=== PATIENT | male | born 1950 | race Caucasian/White ===

== ENCOUNTER → 2017-09-09 09:33 | Outpatient (CLI) | payer OTHER, SELFPAY ==
--- NOTE | 2017-09-09 | DI.MRI.S_ITS ---
PROCEDURE: MR LUMBAR SPINE WO CON INDICATIONS: LOW BACK PAIN TECHNIQUE: Noncontrast sagittal T1 spin echo and T2 fast echo, sagittal STIR, axial T1 and T2 fast spin echo through the lumbar spine. In cases with scoliosis, additional coronal T2 fast spin echo may be performed. COMPARISON: [facility], CT, KUB - CT (PNL), 07/28/2014, 14:05. [facility], CR, KUB XRAY (1 VIEW ABDOMEN), 07/02/2014, 9:44. [facility], CR, KUB, 04/23/2014, 7:11. FINDINGS: Image quality: Excellent. Alignment and Curvature: 5 lumbar type vertebral bodies are present by plain film. There is mild grade 1 retrolisthesis of L1 on L2, L2 on L3, and L4 on L5. Mild grade 1 anterolisthesis of L5 on S1 is present. Bone Marrow: Marrow is of normal overall signal. No acute vertebral body compression fractures. Bilateral L5-S1 pars interarticularis defects are present. There is moderate reactive signal within the endplates adjacent to the L1-L2, L2-L3, L4-L5, and L5-S1 intervertebral discs mild reactive signal within the endplates adjacent to the T12-L1 and L3-L4 intervertebral discs. Spinal Cord: Conus medullaris terminates at the mid L2 level. Visualized cord demonstrates normal signal and size. Paraspinous Soft Tissues: No paravertebral masses. Incompletely visualized right hepatic lobe cyst is present. Parapelvic renal cysts are present bilaterally, as before. L1-L2: Disc desiccation and diffuse disc bulge/osteophyte. Bilateral facet hypertrophy. Mild canal stenosis. Mild foraminal stenosis bilaterally. L2-L3: Disc height loss and desiccation, as well as diffuse disc bulge/osteophyte with small superimposed broad-based left posterolateral protrusion/osteophyte. Bilateral facet hypertrophy. Mild canal stenosis. Mild left greater than right foraminal stenosis. L3-L4: Disc desiccation. Small superimposed left lateral protrusion. Bilateral facet and ligamentum hypertrophy. Mild canal stenosis. Moderate left and mild right foraminal stenosis. L4-L5: Disc desiccation and diffuse disc bulge/osteophyte with small superimposed broad based right far lateral protrusion/osteophyte. Bilateral facet hypertrophy. Mild canal stenosis. Moderate right and mild left foraminal stenosis. L5-S1: Disc height loss and desiccation, as well as diffuse disc bulge. Bilateral facet hypertrophy. Grade I isthmic spondylolisthesis. No significant canal stenosis. Severe bilateral foraminal stenosis with flattening deformity of the bilateral L5 nerve roots within the neural foramina. IMPRESSION: 1. Multilevel degenerative disc and facet disease, as well ligamentum flavum hypertrophy. 2. Grade I isthmic spondylolisthesis at L5-S1. 3. Severe bilateral L5-S1 foraminal stenosis, with associated flattening deformity of the L5 nerve roots in the neural foramina. Recommend correlation with clinical symptoms to ascertain relevance of this finding. 4. Mild canal and mild to moderate foraminal stenosis at the remaining levels. Dictated by: Rizwana James M.D. on 09/09/2017 at 11:36 Approved by: Rizwana James M.D. on 09/09/2017 at 12:00
== END ==
PROVIDERS: PCP Family Medicine; Visit Provider Family Medicine
DX: M51.36 Other intervertebral disc degeneration, lumbar region (principal); M47.816 Spondylosis without myelopathy or radiculopathy, lumbar region; M43.17 Spondylolisthesis, lumbosacral region; M99.73 Connective tissue and disc stenosis of intervertebral foramina of lumbar region; M48.061 Spinal stenosis, lumbar region without neurogenic claudication
CPT/HCPCS: 72148

== ENCOUNTER → 2018-08-26 07:33 | Outpatient (CLI) | payer OTHER, SELFPAY ==
[2018-08-26 09:07] LABS: Add Manual Diff / Slide Review NO; Basophils Absolute Auto 0 /uL (0-100); Basophils Percent Auto 0.8 % (0-2); Eosinophils Absolute Auto 200 /uL (0-450); Eosinophils Percent Auto 4.7 % (2-4); Hematocrit 46.1 % (41-53); Hemoglobin 15.5 g/dL (13.5-17.5); Lymphocytes Absolute Auto 700 /uL (1100-4500); Mean Corpuscular HGB Conc 33.5 % (30-36); Mean Corpuscular Hemoglobin 31.6 PG (26-34); Mean Corpuscular Volume 94.3 fL (80-100); Monocytes Absolute Auto 500 /uL (0-900); Monocytes Percent Auto 12.7 % (3-14); Neutrophils Absolute Auto 2700 /uL (1500-7000); Neutrophils Percent Auto 64.8 % (50-75); Platelet Count 184 X10^3/uL (150-400); Red Blood Cell Count 4.89 X10^6/uL (4.5-5.9); Red Cell Distribution Width 13.7 % (11.6-14.8); White Blood Cell Count 4.1 X10^3/uL (4.5-11.0)
[2018-08-26 09:27] LABS: Alanine Aminotransferase 27 IU/L (21-72); Albumin 4.4 g/dL (3.5-5.0); Albumin Globulin Ratio 1.8 (1.0-2.8); Alkaline Phosphatase 58 U/L (38-126); Aspartate Aminotransferase 26 IU/L (17-59); Bilirubin Total 0.4 mg/dL (0.2-1.3); Blood Urea Nitrogen 23 mg/dL (9-20); Calcium 9.4 mg/dL (8.4-10.2); Carbon Dioxide 27 mmol/L (22-32); Chloride 107 mmol/L (98-107); Cholesterol 205 mg/dL (140-199); Estimated Glomerular Filt Rate > 60.0 mL/min (>60); Globulin 2.5 g/dL (1.7-4.1); Glucose 96 mg/dL (80-110); HDL Cholesterol 43 mg/dL (40-60); HEMOLYSIS < 15 (0-50); LDL Cholesterol Calculated 136 mg/dL (<100); Magnesium 2.1 mg/dL (1.6-2.3); Potassium 4.9 mmol/L (3.4-5.1); Sodium 142 mmol/L (137-145); Total Protein 6.9 g/dL (6.3-8.2); Triglycerides 132 mg/dL (35-150)
[2018-08-26 09:59] LABS: Prostate Specific Antigen Scrn 1.79 ng/mL (0.1-4.0)
[2018-08-26 10:24] LABS: Thyroid Stimulating Hormone 3.69 uIU/mL (0.47-4.68)
[2018-08-26 11:23] LABS: Creatinine Urine Random 234.1 mg/dL
[2018-08-26 11:28] LABS: Microalbumi Creatinin Ratio Ur 6.8 ug/mg CR (<30); Microalbumin Urine Random 1.6 mg/dL (0-1.6)
== END ==
PROVIDERS: Family Provider Specialist; PCP Family Medicine; Visit Provider Family Medicine
DX: I48.0 Paroxysmal atrial fibrillation (principal); C91.40 Hairy cell leukemia not having achieved remission; D64.9 Anemia, unspecified; I10 Essential (primary) hypertension; N28.9 Disorder of kidney and ureter, unspecified; R89.9 Unspecified abnormal finding in specimens from other organs, systems and tissues; Z12.5 Encounter for screening for malignant neoplasm of prostate; Z13.1 Encounter for screening for diabetes mellitus; Z13.220 Encounter for screening for lipoid disorders
CPT/HCPCS: 36415; 80053; 80061; 82043; 82570; 83735; 84443; 85025; G0103

== ENCOUNTER → 2019-01-02 08:28 | Outpatient (CLI) | payer OTHER, SELFPAY ==
[2019-01-02 10:28] LABS: Alanine Aminotransferase 26 IU/L (21-72); Albumin 4.4 g/dL (3.5-5.0); Albumin Globulin Ratio 1.8 (1.0-2.8); Alkaline Phosphatase 51 U/L (38-126); Aspartate Aminotransferase 30 IU/L (17-59); BUN Creatinine Ratio 27.5 (6-22); Bilirubin Total 0.6 mg/dL (0.2-1.3); Blood Urea Nitrogen 22 mg/dL (9-20); Calcium 9.4 mg/dL (8.4-10.2); Carbon Dioxide 27 mmol/L (22-32); Chloride 108 mmol/L (98-107); Estimated Glomerular Filt Rate > 60.0 mL/min (>60); Globulin 2.4 g/dL (1.7-4.1); Glucose 93 mg/dL (80-110); HEMOLYSIS < 15 (0-50); Potassium 4.4 mmol/L (3.4-5.1); Sodium 143 mmol/L (137-145); Total Protein 6.8 g/dL (6.3-8.2)
[2019-01-05 10:13] LABS: Lipoprofile NMR SEE SEPERATE REPORT
== END ==
PROVIDERS: PCP Family Medicine; Visit Provider Specialist
DX: E78.00 Pure hypercholesterolemia, unspecified (principal); I48.0 Paroxysmal atrial fibrillation
CPT/HCPCS: 36415; 80053; 83704; 83735

== ENCOUNTER → 2019-09-29 08:11 | Outpatient (CLI) | payer OTHER, SELFPAY ==
[2019-09-29 10:22] LABS: Alanine Aminotransferase 22 IU/L (<50); Albumin 4.3 g/dL (3.5-5.0); Albumin Globulin Ratio 1.8 (1.0-2.8); Alkaline Phosphatase 51 U/L (38-126); Aspartate Aminotransferase 25 IU/L (17-59); BUN Creatinine Ratio 21.6 (6-22); Bilirubin Total 0.6 mg/dL (0.2-1.3); Blood Urea Nitrogen 19 mg/dL (9-20); Calcium 9.6 mg/dL (8.4-10.2); Carbon Dioxide 23 mmol/L (22-32); Chloride 110 mmol/L (98-107); Estimated Glomerular Filt Rate > 60.0 mL/min (>60); Globulin 2.4 g/dL (1.7-4.1); Glucose 97 mg/dL (80-110); HEMOLYSIS < 15 (0-50); Magnesium 2.1 mg/dL (1.6-2.3); Potassium 4.8 mmol/L (3.4-5.1); Sodium 141 mmol/L (137-145); Total Protein 6.7 g/dL (6.3-8.2)
[2019-10-01 08:17] LABS: Cholesterol, Total 228 mg/dL (100-199); HDL-Cholesterol 44 mg/dL (>39); HDL-Particle (Total) 32.5 umol/L (>=30.5); Historical Reading Comment: (.); LDL Particle 2040 nmol/L (<1000); LDL Size 20.4 nm (>20.5); LDL-Cholsterol 148 mg/dL (0-99); LP-IR Score 70 (<=45); Small LDL- Particle 1095 nmol/L (<=527); Triglycerides 181 mg/dL (0-149)
== END ==
PROVIDERS: PCP Family Medicine; Referring Provider Specialist; Visit Provider Specialist
DX: E78.00 Pure hypercholesterolemia, unspecified (principal); I48.0 Paroxysmal atrial fibrillation
CPT/HCPCS: 36415; 80053; 80061; 83704; 83735

== ENCOUNTER → 2019-11-06 11:29 | Outpatient (CLI) | payer OTHER, SELFPAY ==
[2019-11-06 14:48] LABS: Prostate Specific Antigen 2.16 ng/mL (0.10-4.00)
== END ==
PROVIDERS: PCP Family Medicine; Referring Provider Family Medicine; Visit Provider Family Medicine
DX: N40.0 Benign prostatic hyperplasia without lower urinary tract symptoms (principal)
CPT/HCPCS: 36415; 84153

== ENCOUNTER → 2020-03-03 07:22 | Outpatient (CLI) | payer OTHER, SELFPAY ==
[2020-03-03 08:55] LABS: Cholesterol 132 mg/dL (140-199); HDL Cholesterol 51 mg/dL (40-60); LDL Cholesterol Calculated 63 mg/dL (<100); Triglycerides 89 mg/dL (35-150)
== END ==
PROVIDERS: PCP Family Medicine; Referring Provider Family Medicine; Visit Provider Family Medicine
DX: E78.5 Hyperlipidemia, unspecified (principal)
CPT/HCPCS: 36415; 80061

== ENCOUNTER → 2020-03-11 14:49 | Outpatient (CLI) | payer OTHER, SELFPAY ==
--- NOTE | 2020-03-11 | DI.ECHO.S_ITS ---
[facility] +---------+ : : [address] : : : : [place] : : : : [id number] : : : : Phone: [phone] Echocardiogram Report + + :Name: GERONIMO SOLO Study Date: 03/11/2020 Height: 70 in : :[facility] Weight: 186 lb : : Gender: Male BSA: 2.0 m2 : :: 1950 Age: 69 yrs BP: 145/63 mmHg: :Reason For Study: Aortic enlargement : : Performed By: Evangelina Lo : :Referring: MANFRED MCKEON : + + Interpretation Summary Left ventricular systolic function remains normal with an estimated ejection fraction of 65 to 70% without any focal wall motion abnormality. Wall thickness is at the upper limits of normal with probable normal diastolic function and normal filling pressures. Left ventricular size is normal at 102 mL. The right ventricle is borderline enlarged with normal systolic function and appears unchanged from the previous study. Right ventricular systolic pressure cannot be estimated but CVP is likely around 3 mmHg. Both atria are normal in size. The left atrium has mildly decreased in size. The aortic valve is mildly calcified but opens well with mild aortic regurgitation that appears unchanged from the previous study. There is no other significant valvular abnormality. The aortic root and ascending aorta are both moderately enlarged, measuring 4.3 and 4.2 cm, respectively, compared to 4.4 and 4.2 cm on the previous exam. The patient was in sinus bradycardia at 50 to 55 bpm which is slightly faster compared to the previous exam. Procedure: A two-dimensional transthoracic echocardiogram with color flow and Doppler was performed. The study quality was technically adequate. Comparison is made with the echocardiogram of 07/03/2018. The patient was in sinus bradycardia with heart rates between 50-55 bpm during the exam. This is slightly faster compared to the previous study. Left Ventricle: The left ventricle appears normal in size, wall thickness, and systolic function without any focal wall motion abnormalities. The estimated left ventricular end diastolic volume is 102 ml. The ejection fraction is estimated to be 65-70%. Diastolic parameters suggest probable normal left ventricular diastolic function and normal filling pressures. There has been no significant change since the previous study. Right Ventricle: The right ventricle is borderline dilated. The right ventricular systolic function is normal. This is unchanged compared to the previous study. Atria: Both atria are normal in size. The left atrium has mildly decreased in size since the prior echo exam. There is no Doppler evidence for an interatrial shunt. Mitral Valve: There is mild mitral annular calcification. There is trace mitral regurgitation. This is less prominent compared to the previous study. Aortic Valve: The aortic valve is trileaflet. The aortic valve is mildly calcified. The aortic valve opens well. There is mild aortic regurgitation. This is unchanged compared to the previous study. Tricuspid Valve: The tricuspid valve is normal in structure and function. There is trace tricuspid regurgitation. Pulmonary artery pressures cannot be estimated because of the lack of a measurable TR jet velocity but the IVC suggests a CVP of around 3 mmHg. Pulmonic Valve: The pulmonic valve leaflets are thin and pliable; valve motion is normal. There is a trace or physiologic amount of pulmonic regurgitation. There is no other significant valvular heart disease. Great Vessels: The aortic root is moderately dilated. The ascending aorta is moderately enlarged. This is unchanged compared to the previous study. The pulmonary artery is normal size. The IVC is of normal diameter and collapses greater than 50% with a sniff. This suggests a low right atrial pressure of 3 mm Hg. Pericardium/ Pleura There is no pericardial effusion. MMode/2D Measurements & Calculations LVIDd: 5.2 cm LVOT diam: 2.5 cm LVIDs: 3.0 cm Ao root diam: 4.3 cm FS: 41.7 % asc Aorta Diam: 4.2 cm IVSd: 0.90 cm LVPWd: 0.86 cm LV verduzco. diameter/BSA (cm/m^2): 2.6 LV sys. diameter/BSA (cm/m^2): 1.5 LA A2 area: 25.6 cm2 RA long axis: 6.6 cm LA A4 area: 17.0 cm2 RA area: 19.9 cm2 LA length (vol): 5.7 cm RA vol: 50.7 ml LA vol: 65.2 ml RA : 25.0 ml/m2 LA vol index: 32.2 ml/m2 IVC diam: 1.2 cm RVD1 (basal): 4.7 cm TAPSE: 2.1 cm Doppler Measurements & Calculations Ao V2 max: 142.4 cm/sec LVOT Max Alvin: 151.6 cm/sec Ao V2 mean: 92.4 cm/sec LV V1 max P.2 mmHg Ao max P.1 mmHg LV V1 VTI: 29.7 cm Ao mean P.9 mmHg AARON(I,D): 5.6 cm2 Ao V2 VTI: 27.3 cm AARON(V,D): 5.4 cm2 sev ratio: 1.1 AARON indexed to BSA (cm^2/m^2): 2.7 MV E max alvin: 53.5 cm/sec TR max alvin: 223.9 cm/sec MV A max alvin: 58.1 cm/sec TR max P.1 mmHg MV E/A: 0.92 PA V2 max: 94.1 cm/sec Med Peak E' Alvin: 6.6 cm/sec PA V2 mean: 67.5 cm/sec E/E' med: 8.1 PA mean P.0 mmHg Lat Peak E' Alvin: 10.8 cm/sec PA Accel Time: 0.05 sec E/E' lat: 4.9 E/e' average: 6.5 MV dec time: 0.28 sec SV(LVOT): 151.6 ml AV P1/2t-pr_phl: 863.2 msec Reading Physician:06:16 PM
== END ==
PROVIDERS: PCP Family Medicine; Referring Provider Specialist; Visit Provider Specialist
DX: I35.1 Nonrheumatic aortic (valve) insufficiency (principal); I77.89 Other specified disorders of arteries and arterioles; R00.1 Bradycardia, unspecified
CPT/HCPCS: 93306

== ENCOUNTER → 2020-08-04 14:51 | Outpatient (CLI) | payer OTHER, SELFPAY ==
--- NOTE | 2020-08-04 14:52 | DI.RAD.S_ITS ---
PROCEDURE: XR HIP W PEL IF DONE LT 2V INDICATIONS: left hip pain TECHNIQUE: AP pelvis with lateral view(s) of the left hip(s). COMPARISON: None. FINDINGS: Moderate left acetabular joint space narrowing and small marginal osteophyte present. Minimal subchondral sclerosis without remodeling of the femoral head. Mild right-sided acetabular joint space narrowing noted with overlying inguinal vascular clips. Degenerative disc disease noted in the lower lumbar spine. Normal bone mineralization. No evidence of fracture. IMPRESSION: 1. Moderate left hip osteoarthritis with small marginal osteophyte and no remodeling of the femoral head Dictated by: Doc Phillip M.D. on 08/04/2020 at 16:04 Approved by: Doc Phillip M.D. on 08/04/2020 at 16:09
== END ==
PROVIDERS: PCP Family Medicine; Referring Provider Family Medicine; Visit Provider Family Medicine
DX: M54.5 Low back pain (principal); M16.12 Unilateral primary osteoarthritis, left hip; M25.552 Pain in left hip; G89.29 Other chronic pain
CPT/HCPCS: 73502

== ENCOUNTER 2020-08-07 10:10 | Emergency (ER) | payer OTHER, SELFPAY ==
[2020-08-07] VITALS (13 sets, daily range): BP systolic 97–116; BP diastolic 55–76; PULSE 58–78; RESP 16–21; TEMP 36.6; O2SAT 94–97; BMI 25.8
--- NOTE | 2020-08-07 10:25 | DI.RAD.S_ITS ---
PROCEDURE: XR CHEST 1V INDICATIONS: chest pain TECHNIQUE: One view of the chest was acquired. COMPARISON: [facility], CR, XR PICC LINE PLACE BY NURSE, 09/17/2016, 12:50. [facility], DELL, CHEST 2 VIEW, 09/06/2014, 9:37. FINDINGS: Surgical changes and devices: Overlying EKG wires. Lungs and pleura: Lungs are clear. No pleural effusions or pneumothorax. Mediastinum: Mediastinal contours appear normal. Heart size is normal. Bones and chest wall: No suspicious bony lesions. Overlying soft tissues appear unremarkable. IMPRESSION: No evidence of an acute cardiopulmonary abnormality. Dictated by: on 08/07/2020 at 9:51 Approved by: on 08/07/2020 at 9:52
--- NOTE | 2020-08-07 10:43 | ED_ITS ---
HPI - Arrhythmia/Palpitations General Chief Complaint: Arrhythmia/Palpitations Stated Complaint: afib event Time Seen by Provider: 08/07/20 10:42 Source: patient and family () Mode of arrival: Ambulatory Limitations: no limitations History of Present Illness HPI narrative: This is a pleasant 69-year-old male comes emergency department complaint of atrial fibrillation. Patient states he has been in an out for at least the last several days. He does not always have symptoms but he noticed that his last doctor's appointment on his chart that his heart rate was 116 which is atypical. He has been checking intermittently and noted that his heart rate has been intermittently elevated into the 110 range. Patient states he had some dizziness yesterday, he felt more exhausted after pretty extensive yd work yesterday. He has felt a little bit more short of breath lately although he does not have any shortness of breath today. He has felt some generalized fatigue. He denies any chest pain or pressure. He has recently had shingles of his left upper extremity and developed a rash that ultimately resolved and he continues to have some post herpetic neuralgia. Patient was on nortriptyline for this which he found was also very helpful for his back pain. Patient is not currently anticoagulated he was on Eliquis but stopped it secondary to increased tinnitus as well as not being able to take ibuprofen for his back. He states he would be willing to try this again as the nortriptyline really helped his back pain and he was not really requiring any ibuprofen. He does take atenolol daily, losartan, a statin, Rapaflo as well as an 81 mg aspirin daily. He has had his morning aspirin. He has had multiple orthopedic surgeries in the past, no cardiac stents and cardiac ablations and multiple lithotripsies. He has been treated for hairy cell leukemia. Patient denies tobacco, no alcohol. He does use THC drops occasionally but no other regular illicit drugs. He comes in today after discussing with Dr. Dumont on the phone about his symptoms. He is currently asymptomatic. Related Data Home Medications Medication Instructions Recorded Confirmed Glucosamine Sulfate (GLUCOSAMINE) 500 mg PO Q DAY #0 01/29/11 08/04/20 Fish Oil (#FISH OIL) 1 iu PO Q DAY #0 01/28/12 08/04/20 MULTIVITAMIN (#MULTIPLE VITAMINS) 1 cap PO Q DAY #0 01/28/12 08/04/20 Folic Acid 1 tab PO DAILY 07/01/19 08/04/20 aspirin 81 mg tablet,delayed 81 mg PO DAILY 07/01/19 08/04/20 release atenolol 50 mg tablet 50 mg PO DAILY 06/17/20 08/04/20 Previous Rx's Medication Instructions Recorded silodosin 8 mg capsule 8 mg PO Q DAY #90 cap 08/31/19 losartan 50 mg tablet 50 mg PO DAILY #90 tab 11/05/19 atorvastatin 10 mg tablet 10 mg PO DAILY #90 tab 01/30/20 nortriptyline 25 mg capsule 25 mg PO BEDTIME #60 cap 08/04/20 apixaban [Eliquis] 5 mg PO BID #60 tab 08/07/20 furosemide [Lasix] 20 mg PO DAILY #3 tab 08/07/20 Allergies Allergy/AdvReac Type Severity Reaction Status Date / Time Sulfa (Sulfonamide Allergy Intermediate HIVES, Verified 08/04/20 14:34 Antibiotics) FEVER ciprofloxacin Allergy Mild RASH Verified 08/04/20 14:34 floxacillin Allergy Mild RASH Verified 08/04/20 14:34 allopurinol [ALLOPURINOL] Allergy Unknown Verified 08/04/20 14:34 Review of Systems Review of Systems ROS Unobtainable: All systems reviewed & are unremarkable except as noted in HPI and below Patient History Medical History Atrial fibrillation (1993) Chicken pox (~1954) Chronic back pain (1964) Diverticular disease (~2009) Hearing loss (~1976) Hypertension (~1985) Kidney stones (2006) Left hip pain Leukemia (~1991) Measles (~1954) Mumps (~1954) Plantar warts Recurrent sinusitis (~2008) Shoulder pain (2011) Tinnitus (~1979) Vertigo (2010) Surgical History Anesthesia History of colonoscopy (04/04/07) History of lithotripsy (2006) History of lithotripsy (2013) History of lithotripsy (2014) Status post hernia repair (1959) Status post hernia repair (2006) Status post knee surgery (1969) Status post knee surgery (1979) Status post wrist surgery (~1979) Family History Brother Age: 69 Leukemia Father Alzheimer's disease Mother Breast cancer Cancer Sister Age: 75 Ovarian cancer Cancer Sister No problems noted. Social History Smoking Status: Former smoker Smoking Status: Former smoker Exam Narrative Exam Narrative: GENERAL: Alert and oriented x three, well-nourished male in mild distress. HEENT: Head normocephalic, atraumatic, EOMI, pupils reactive, face symmetric, moist mucous membranes NECK: Supple, full range of motion CARDIOVASCULAR: Regular rate and rhythm without murmurs, rubs or gallops. No JVD. No lower extremity edema. RESPIRATORY: Breath sounds equal bilaterally, no wheezes rales or rhonchi. ABDOMEN: Soft, nontender. Normoactive bowel sounds all 4 quadrants. No guarding or rebound, rigidity, no mass : No CVA tenderness EXTREMITIES: Normal range of motion. Neurovascularly intact NEUROLOGICAL: Cranial nerves II through XII grossly intact. Moving all extremities SKIN: Warm, dry, no petechiae, no rashes or lesions. Initial Vital Signs Initial Vital Signs: Vital Signs Blood Pressure 114/76 08/07/20 10:14 Course Orders Ordered: ED Orders 08/07/20 10:25 XR chest 1V Stat EKG-12 Lead Stat 08/07/20 10:33 Complete Blood Count AUTO DIFF Stat Comprehensive Metabolic Panel Stat Lipase Stat Magnesium Stat NT-proBNP (BNP-Adult 18+) Stat Partial Thromboplastin Time Stat Prothrombin Time INR Stat Troponin & CK Cardiac Panel Stat Discontinued Medications Apixaban (Apixaban 5 Mg Tablet) 5 mg PO NOW ONE Stop: 08/07/20 12:37 Last Admin: 08/07/20 12:50 Dose: 5 mg Documented by: GILDARDO Furosemide (Furosemide 40 Mg/4 Ml Vial) 20 mg IV NOW ONE Stop: 08/07/20 12:16 Last Admin: 08/07/20 12:32 Dose: 20 mg Documented by: GILDARDO Reevaluation(s) Reevaluation #1: Patient continues to be asymptomatic in the department. He was given a dose of Lasix here. 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 Plan is to restart after consultation with Dr. Dumont. Patient was also recommended to increase his atenolol. And a short course of Lasix. Return precautions were discussed and patient feels comfortable with the plan. Patient states he has actually been on in the prior atenolol dose in the past and tolerated well. Time: 12:02 Consultations Consultation #1: Spoke with Dr. Dumont for cardiology. He is familiar with the patient. He was hoping to catch patient in atrial fibrillation but he was in sinus rhythm here. Decision was made to go ahead and start him on his Eliquis as he has had paroxysmal atrial fibrillation in the past and if he requires cardioversion in the future he will be already started on his anticoagulation. He also recommends increasing his atenolol from 50 mg once daily to continuing with 50 mg in the morning and adding 25 mg in the evening. Patient also has elevated BNP with some mild shortness of breath on exertion but none today and plan for short course of Lasix. Vital Signs Vital signs: Vital Signs - 8 hr 08/07/20 10:30 08/07/20 10:31 08/07/20 11:00 Pulse Rate 71 71 67 Respiratory Rate 21 19 20 Blood Pressure 105/70 Pulse Oximetry 97 96 97 08/07/20 11:01 08/07/20 11:30 08/07/20 11:31 Pulse Rate 66 63 63 Respiratory Rate 19 18 18 Blood Pressure 101/75 116/55 L Pulse Oximetry 97 95 95 08/07/20 12:00 08/07/20 12:01 08/07/20 12:02 Pulse Rate 58 L 59 L 58 L Respiratory Rate 18 19 18 Blood Pressure 97/65 Pulse Oximetry 94 96 96 08/07/20 12:30 Pulse Rate 59 L Respiratory Rate 18 Blood Pressure 99/70 Pulse Oximetry 95 MDM - Arrhythmia/Palpitations Lab Data Attestation: I reviewed the patient's lab results. Result diagrams: 08/07/20 10:33 08/07/20 10:33 Labs: Lab Results 08/07/20 08/07/20 08/07/20 Range/Units 10:33 10:33 10:33 WBC 7.3 (4.5-11.0) X10^3/uL RBC 5.16 (4.5-5.9) X10^6/uL Hgb 16.1 (13.5-17.5) g/dL Hct 48.5 (41-53) % MCV 94.1 (80-100) fL MCH 31.2 (26-34) PG MCHC 33.1 (30-36) % RDW 14.1 (11.6-14.8) % Plt Count 234 (150-400) X10^3/uL Neut % (Auto) 80.2 H (50-75) % Lymph % (Auto) 7.2 L (25-40) % [place] % (Auto) 10.2 (3-14) % Eos % (Auto) 1.9 L (2-4) % Baso % (Auto) 0.5 (0-2) % Neut # (Auto) 5900 (3471-4209) /uL Lymph # (Auto) 500 L (7459-4040) /uL [place] # (Auto) 700 (0-900) /uL Eos # (Auto) 100 (0-450) /uL Baso # (Auto) 0 (0-100) /uL PT 13.2 H (10.1-12.7) SECONDS INR 1.2 (0.9-1.3) APTT 33 (26.4-36.2) SECONDS Sodium 142 (137-145) mmol/L Potassium 4.8 (3.4-5.1) mmol/L Chloride 107 (98-107) mmol/L Carbon Dioxide 27 (22-32) mmol/L BUN 24 H (9-20) mg/dL Creatinine 1.09 (0.66-1.25) mg/dL Estimated GFR > 60.0 (>60) mL/min BUN/Creatinine Ratio 22.0 (6-22) Glucose 134 H (80-110) mg/dL Calcium 9.9 (8.4-10.2) mg/dL Magnesium (1.6-2.3) mg/dL Total Bilirubin 0.5 (0.2-1.3) mg/dL AST 33 (17-59) IU/L ALT 37 (<50) IU/L Alkaline Phosphatase 58 (38-126) U/L Total Creatine Kinase 38 L (55-170) U/L CK-MB (CK-2) TNP CK-MB (CK-2) Rel Index TNP Troponin I < 0.012 (0.01-0.034) ng/mL NT-Pro-B Natriuret Pep (<125) pg/mL Total Protein 6.9 (6.3-8.2) g/dL Albumin 4.3 (3.5-5.0) g/dL Globulin 2.6 (1.7-4.1) g/dL Albumin/Globulin Ratio 1.7 (1.0-2.8) Lipase 69 (23-300) U/L 08/07/20 08/07/20 Range/Units 10:33 10:33 WBC (4.5-11.0) X10^3/uL RBC (4.5-5.9) X10^6/uL Hgb (13.5-17.5) g/dL Hct (41-53) % MCV (80-100) fL MCH (26-34) PG MCHC (30-36) % RDW (11.6-14.8) % Plt Count (150-400) X10^3/uL Neut % (Auto) (50-75) % Lymph % (Auto) (25-40) % [place] % (Auto) (3-14) % Eos % (Auto) (2-4) % Baso % (Auto) (0-2) % Neut # (Auto) (8286-0499) /uL Lymph # (Auto) (8720-0039) /uL [place] # (Auto) (0-900) /uL Eos # (Auto) (0-450) /uL Baso # (Auto) (0-100) /uL PT (10.1-12.7) SECONDS INR (0.9-1.3) APTT (26.4-36.2) SECONDS Sodium (137-145) mmol/L Potassium (3.4-5.1) mmol/L Chloride (98-107) mmol/L Carbon Dioxide (22-32) mmol/L BUN (9-20) mg/dL Creatinine (0.66-1.25) mg/dL Estimated GFR (>60) mL/min BUN/Creatinine Ratio (6-22) Glucose (80-110) mg/dL Calcium (8.4-10.2) mg/dL Magnesium 2.1 (1.6-2.3) mg/dL Total Bilirubin (0.2-1.3) mg/dL AST (17-59) IU/L ALT (<50) IU/L Alkaline Phosphatase (38-126) U/L Total Creatine Kinase (55-170) U/L CK-MB (CK-2) CK-MB (CK-2) Rel Index Troponin I (0.01-0.034) ng/mL NT-Pro-B Natriuret Pep 1470 H (<125) pg/mL Total Protein (6.3-8.2) g/dL Albumin (3.5-5.0) g/dL Globulin (1.7-4.1) g/dL Albumin/Globulin Ratio (1.0-2.8) Lipase (23-300) U/L Imaging Data Chest x-ray: Radiologist's Impresson: [address] [id number] ReportSigned Patient: Nicholas Miller MMR#: [id number]: 9Acct:[id number]/Sex: 69 / MDate of Service: 08/07/20Loc: EDAccession Number: [id number] Procedure: XR chest 1V Ordering Provider: Tamica Flynn D.O. PROCEDURE: XR CHEST 1V INDICATIONS: chest pain TECHNIQUE: One view of the chest was acquired. COMPARISON: [facility], , XR PICC LINE PLACE BY NURSE, 09/17/2016, 12:50. [facility], , CHEST 2 VIEW, 09/06/2014, 9:37. FINDINGS: Surgical changes and devices: Overlying EKG wires. Lungs and pleura: Lungs are clear. No pleural effusions or pneumothorax. Mediastinum: Mediastinal contours appear normal. Heart size is normal. Bones and chest wall: No suspicious bony lesions. Overlying soft tissues appear unremarkable. IMPRESSION: No evidence of an acute cardiopulmonary abnormality. Dictated by: on 08/07/2020 at 9:51 Approved by: on 08/07/2020 at 9:52 ECG Data Attestation: I personally reviewed and interpreted this ECG as follows: Prior ECG tracings: available for review Interpretation: Sinus rhythm rate of 71 MD interval 174 QRS of 96 and QTC of 397. No acute ST elevation depression noted. Prior EKG from 09/23/2016 appears similar. MDM Narrative Medical decision making narrative: This is a 69-year-old male comes emergency department with complaint of intermittent atrial fibrillation. He is in sinus rhythm today but has a history of AFib. He is not currently anticoagulated but used to be. He stopped his Eliquis secondary to tenderness and not being able to take ibuprofen for his chronic pain. Patient has had some mild shortness of breath. He is asymptomatic today. He has an elevated BNP but with no significant exam findings consistent with a CHF exacerbation and a negative chest x-ray. Small dose of Lasix was given here. Cardiology was consulted plan is to restart patient on his prior Eliquis which he is more willing to start now that he is taking nortriptyline which has made a significant improvement on his back pain even though he was taking it for post herpetic neuralgia. We also are going to adjust his atenolol as he has had intermittent elevations in his heart rate back to his prior dose. All questions were asked and patient feels comfortable with this plan. Discharge Plan Departure Patient Disposition: Home Clinical Impression: Elevated brain natriuretic peptide (BNP) level Activity Restrictions/Additional Instructions: Please call the office on Saturday to set up follow up with Dr. Dumont. He does recommend continuing 50 mg of atenolol in the morning and adding an additional 25 mg in the evening of atenolol to your daily medication. We also discussed restarting your Eliquis. Take Lasix once daily until gone. Prescription sent to [facility] Please return if you have fevers, lightheadedness or passing out, new chest pain, shortness of breath, new swelling in your extremities or other new or concerning symptoms. Prescriptions: New Eliquis 5 mg tablet 5 mg PO BID Qty: 60 RF: 0 furosemide [Lasix] 20 mg tablet 20 mg PO DAILY Qty: 3 RF: 0 No Action Glucosamine Sulfate (GLUCOSAMINE) 500 mg PO Q DAY Qty: 0 RF: 0 MULTIVITAMIN (#MULTIPLE VITAMINS) 1 cap PO Q DAY Qty: 0 RF: 0 Fish Oil (#FISH OIL) 1 iu PO Q DAY Qty: 0 RF: 0 silodosin [Rapaflo] 8 mg capsule 8 mg PO Q DAY Qty: 90 RF: 3 losartan 50 mg tablet 50 mg PO DAILY Qty: 90 RF: 1 atorvastatin 10 mg tablet 10 mg PO DAILY Qty: 90 RF: 1 atenolol 50 mg tablet 50 mg PO DAILY RF: 0 nortriptyline 25 mg capsule 25 mg PO BEDTIME Qty: 60 RF: 0 aspirin [Adult Low Dose Aspirin] 81 mg tablet,delayed release (DR/EC) 81 mg PO DAILY RF: 0 Folic Acid 1 tab PO DAILY RF: 0 Referrals: Jj La MD [Primary Care Provider] -
[2020-08-07 10:48] LABS: Add Manual Diff / Slide Review NO; Basophils Absolute Auto 0 /uL (0-100); Basophils Percent Auto 0.5 % (0-2); Eosinophils Absolute Auto 100 /uL (0-450); Eosinophils Percent Auto 1.9 % (2-4); Hematocrit 48.5 % (41-53); Hemoglobin 16.1 g/dL (13.5-17.5); Lymphocytes Absolute Auto 500 /uL (1100-4500); Lymphocytes Percent Auto 7.2 % (25-40); Mean Corpuscular HGB Conc 33.1 % (30-36); Mean Corpuscular Hemoglobin 31.2 PG (26-34); Mean Corpuscular Volume 94.1 fL (80-100); Monocytes Absolute Auto 700 /uL (0-900); Monocytes Percent Auto 10.2 % (3-14); Neutrophils Absolute Auto 5900 /uL (1500-7000); Neutrophils Percent Auto 80.2 % (50-75); Platelet Count 234 X10^3/uL (150-400); Red Blood Cell Count 5.16 X10^6/uL (4.5-5.9); Red Cell Distribution Width 14.1 % (11.6-14.8); White Blood Cell Count 7.3 X10^3/uL (4.5-11.0)
[2020-08-07 10:49] LABS: INR 1.2 (0.9-1.3); Prothrombin Time 13.2 SECONDS (10.1-12.7)
[2020-08-07 10:52] LABS: PTT Partial Thromboplastin Tim 33 SECONDS (26.4-36.2)
[2020-08-07 10:54] LABS: Alanine Aminotransferase 37 IU/L (<50); Albumin 4.3 g/dL (3.5-5.0); Albumin Globulin Ratio 1.7 (1.0-2.8); Alkaline Phosphatase 58 U/L (38-126); Aspartate Aminotransferase 33 IU/L (17-59); Bilirubin Total 0.5 mg/dL (0.2-1.3); Blood Urea Nitrogen 24 mg/dL (9-20); Calcium 9.9 mg/dL (8.4-10.2); Carbon Dioxide 27 mmol/L (22-32); Chloride 107 mmol/L (98-107); Creatine Kinase 38 U/L (55-170); Estimated Glomerular Filt Rate > 60.0 mL/min (>60); Globulin 2.6 g/dL (1.7-4.1); Glucose 134 mg/dL (80-110); HEMOLYSIS 18 (0-50); Lipase 69 U/L (23-300); Potassium 4.8 mmol/L (3.4-5.1); Sodium 142 mmol/L (137-145); Total Protein 6.9 g/dL (6.3-8.2)
[2020-08-07 11:03] LABS: NT-proBNP (BNP-Adult 18+) 1470 pg/mL (<125)
[2020-08-07 11:06] LABS: Troponin I < 0.012 ng/mL (0.01-0.034)
[2020-08-07 11:14] LABS: Magnesium 2.1 mg/dL (1.6-2.3)
[2020-08-07] MEDS: FUROSEMIDE 40 MG/4 ML VIAL 20 MG IV (12:32)
[2020-08-07] MEDS: APIXABAN 5 MG TABLET PO (12:50)
== END 2020-08-07 13:00 | disposition home or self-care (01) ==
PROVIDERS: Emergency Provider Emergency Medicine; PCP Family Medicine
DX: R79.89 Other specified abnormal findings of blood chemistry (principal); I48.91 Unspecified atrial fibrillation
CPT/HCPCS: 36415; 71045; 80053; 82550; 83690; 83735; 83880; 84484; 85025; 85610; 85730; 93005; 93010; 96374; 99284; J1940

== ENCOUNTER 2020-08-18 10:07 | Emergency (ER) | payer OTHER, SELFPAY ==
[2020-08-18] VITALS (14 sets, daily range): BP systolic 94–128; BP diastolic 64–84; PULSE 82–125; RESP 16–24; O2SAT 94–100; BMI 25.1
--- NOTE | 2020-08-18 10:21 | DI.RAD.S_ITS ---
PROCEDURE: XR CHEST 1V INDICATIONS: chest pain TECHNIQUE: One view of the chest was acquired. COMPARISON: [facility], CR, XR CHEST 1V, 08/07/2020, 10:37. FINDINGS: Surgical changes and devices: None. Lungs and pleura: Lungs are clear. No pleural effusions or pneumothorax. Mediastinum: Mediastinal contours appear normal. Heart size is normal. Bones and chest wall: No suspicious bony lesions. Overlying soft tissues appear unremarkable. IMPRESSION: No evidence acute pulmonary process. Dictated by: Isaiah Claudio M.D. on 08/18/2020 at 10:34 Approved by: Isaiah Claudio M.D. on 08/18/2020 at 10:36
--- NOTE | 2020-08-18 10:32 | ED_ITS ---
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 He notes that when he has had significant times of medical stress (cancer treatments post surgery etc.) he has had episodes of atrial fibrillation. He has never required cardioversion. Current episode started at approximately 10:30. last night, was uncomfortable enough through the evening that he had difficulty sleeping. He describes no overt chest pain, cough, orthopnea or dyspnea, n ausea, vomiting, diarrhea, abdominal pain, headaches, acute neurologic changes. He does note that he has chronic low back pain and has found that nortriptyline recently added, has been very helpful in managing that pain however at 25 mg he is finding himself sleepy for much of the day. Related Data Home Medications Medication Instructions Recorded Confirmed Glucosamine Sulfate (GLUCOSAMINE) 500 mg PO Q DAY #0 01/29/11 08/04/20 Fish Oil (#FISH OIL) 1 iu PO Q DAY #0 01/28/12 08/04/20 MULTIVITAMIN (#MULTIPLE VITAMINS) 1 cap PO Q DAY #0 01/28/12 08/04/20 Folic Acid 1 tab PO DAILY 07/01/19 08/04/20 aspirin 81 mg tablet,delayed 81 mg PO DAILY 07/01/19 08/04/20 release atenolol 50 mg tablet 50 mg PO DAILY 06/17/20 08/04/20 Previous Rx's Medication Instructions Recorded silodosin 8 mg capsule 8 mg PO Q DAY #90 cap 08/31/19 losartan 50 mg tablet 50 mg PO DAILY #90 tab 11/05/19 atorvastatin 10 mg tablet 10 mg PO DAILY #90 tab 01/30/20 nortriptyline 25 mg capsule 25 mg PO BEDTIME #60 cap 08/04/20 apixaban [Eliquis] 5 mg PO BID #60 tab 08/07/20 furosemide [Lasix] 20 mg PO DAILY #3 tab 08/07/20 nortriptyline 10 mg PO BEDTIME #30 cap 08/18/20 Allergies Allergy/AdvReac Type Severity Reaction Status Date / Time Sulfa (Sulfonamide Allergy Intermediate HIVES, Verified 08/04/20 14:34 Antibiotics) FEVER ciprofloxacin Allergy Mild RASH Verified 08/04/20 14:34 floxacillin Allergy Mild RASH Verified 08/04/20 14:34 allopurinol [ALLOPURINOL] Allergy Unknown Verified 08/04/20 14:34 Review of Systems Review of Systems Narrative: Remainder of complete review of systems is otherwise unremarkable except for that included in the HPI. Patient History Medical History Atrial fibrillation (1993) Chicken pox (~1954) Chronic back pain (1964) Diverticular disease (~2009) Hearing loss (~1976) Hypertension (~1985) Kidney stones (2006) Left hip pain Leukemia (~1991) Measles (~1954) Mumps (~1954) Plantar warts Recurrent sinusitis (~2008) Shoulder pain (2011) Tinnitus (~1979) Vertigo (2010) Surgical History Anesthesia History of colonoscopy (04/04/07) History of lithotripsy (2006) History of lithotripsy (2013) History of lithotripsy (2014) Status post hernia repair (1959) Status post hernia repair (2006) Status post knee surgery (1969) Status post knee surgery (1979) Status post wrist surgery (~1979) Family History Brother Age: 69 Leukemia Father Alzheimer's disease Mother Breast cancer Cancer Sister Age: 75 Ovarian cancer Cancer Sister No problems noted. Social History Smoking Status: Former smoker Smoking Status: Former smoker Exam Narrative Exam Narrative: General: Healthy appearing, in no acute distress. Able to give a complete and coherent history. Well-nourished well-developed HEENT: Moist mucous membranes, normal sclera with reactive pupils, Neck: No JVD, supple Respiratory: Lungs are clear to auscultation, no wheezing no rales no rhonchi. Full and symmetrical air movement Cardiac: Irregular rate and rhythm no murmurs no bruits Abdomen: Soft, nontender, good bowel tones, no flank pain Skin: Warm and dry, no rashes Neurologic: Grossly neurologically intact with no obvious asymmetries or abnormalities Extremities: No trauma, well perfused Psych: Cooperative, appropriate insight and affect Initial Vital Signs Initial Vital Signs: Vital Signs Pulse Rate 125 H 08/18/20 10:10 Respiratory Rate 16 08/18/20 10:10 Blood Pressure 128/83 08/18/20 10:10 Pulse Oximetry 100 08/18/20 10:10 Course Orders Ordered: ED Orders 08/18/20 10:21 XR chest 1V Stat EKG-12 Lead Stat 08/18/20 10:35 Complete Blood Count AUTO DIFF Stat Comprehensive Metabolic Panel Stat Lipase Stat Partial Thromboplastin Time Stat Prothrombin Time INR Stat Troponin & CK Cardiac Panel Stat 08/18/20 14:09 COVID19 -Nasal swab/Pre-Proc Stat Discontinued Medications Sodium Chloride (Normal Saline 0.9%) 1,000 mls @ 1,000 mls/hr IV BOLUS ONE Stop: 08/18/20 12:27 Last Admin: 08/18/20 11:33 Dose: 1,000 mls/hr Documented by: CHRISTA Propofol (Propofol 200 Mg/20 Ml Vial) 40 mg 0.5 mg/kg (40 mg) IV NOW ONE Stop: 08/18/20 14:06 Last Admin: 08/18/20 14:19 Dose: Not Given Documented by: Vital Signs Vital signs: Vital Signs - 8 hr 08/18/20 10:10 08/18/20 10:43 08/18/20 11:00 Pulse Rate 125 H 122 H 113 H Respiratory Rate 16 24 17 Blood Pressure 128/83 Pulse Oximetry 100 98 96 08/18/20 11:04 08/18/20 11:30 08/18/20 12:00 Pulse Rate 116 H 99 H 94 H Respiratory Rate 21 20 19 Blood Pressure 114/64 100/68 104/68 Pulse Oximetry 96 95 94 08/18/20 12:28 08/18/20 12:30 08/18/20 13:00 Pulse Rate 87 96 H 89 Respiratory Rate 17 19 19 Blood Pressure 104/68 94/69 110/73 Pulse Oximetry 95 94 95 08/18/20 13:30 08/18/20 14:00 08/18/20 14:28 Pulse Rate 82 103 H 93 H Respiratory Rate 18 21 19 Blood Pressure 104/79 121/84 121/84 Pulse Oximetry 95 97 95 08/18/20 14:30 Pulse Rate 94 H Respiratory Rate 17 Blood Pressure 113/73 Pulse Oximetry 96 Medical Decision Making Medical Records Medical records reviewed: Yes I reviewed the patient's medical records. Lab Data Lab results reviewed: Yes I reviewed the patient's lab results. Result diagrams: 08/18/20 10:35 08/18/20 10:35 Labs: Lab Results 08/18/20 08/18/20 08/18/20 Range/Units 10:35 10:35 10:35 WBC 9.9 (4.5-11.0) X10^3/uL RBC 4.87 (4.5-5.9) X10^6/uL Hgb 15.2 (13.5-17.5) g/dL Hct 45.4 (41-53) % MCV 93.3 (80-100) fL MCH 31.3 (26-34) PG MCHC 33.6 (30-36) % RDW 13.9 (11.6-14.8) % Plt Count 238 (150-400) X10^3/uL Neut % (Auto) 88.9 H (50-75) % Lymph % (Auto) 3.1 L (25-40) % [place] % (Auto) 7.1 (3-14) % Eos % (Auto) 0.6 L (2-4) % Baso % (Auto) 0.3 (0-2) % Neut # (Auto) 8800 H (2651-7290) /uL Lymph # (Auto) 300 L (5930-1207) /uL [place] # (Auto) 700 (0-900) /uL Eos # (Auto) 100 (0-450) /uL Baso # (Auto) 0 (0-100) /uL PT 15.3 H (10.1-12.7) SECONDS INR 1.3 (0.9-1.3) APTT 57 H D (26.4-36.2) SECONDS Sodium 139 (137-145) mmol/L Potassium 4.6 (3.4-5.1) mmol/L Chloride 106 (98-107) mmol/L Carbon Dioxide 26 (22-32) mmol/L BUN 21 H (9-20) mg/dL Creatinine 1.06 (0.66-1.25) mg/dL Estimated GFR > 60.0 (>60) mL/min BUN/Creatinine Ratio 19.8 (6-22) Glucose 149 H (80-110) mg/dL Calcium 9.7 (8.4-10.2) mg/dL Total Bilirubin 0.7 (0.2-1.3) mg/dL AST 41 (17-59) IU/L ALT 38 (<50) IU/L Alkaline Phosphatase 72 (38-126) U/L Total Creatine Kinase 40 L (55-170) U/L CK-MB (CK-2) TNP CK-MB (CK-2) Rel Index TNP Troponin I < 0.012 (0.01-0.034) ng/mL Total Protein 6.8 (6.3-8.2) g/dL Albumin 4.3 (3.5-5.0) g/dL Globulin 2.5 (1.7-4.1) g/dL Albumin/Globulin Ratio 1.7 (1.0-2.8) Lipase 70 (23-300) U/L SARS-CoV-2 (PCR) (Negative) 08/18/20 Range/Units 14:09 WBC (4.5-11.0) X10^3/uL RBC (4.5-5.9) X10^6/uL Hgb (13.5-17.5) g/dL Hct (41-53) % MCV (80-100) fL MCH (26-34) PG MCHC (30-36) % RDW (11.6-14.8) % Plt Count (150-400) X10^3/uL Neut % (Auto) (50-75) % Lymph % (Auto) (25-40) % [place] % (Auto) (3-14) % Eos % (Auto) (2-4) % Baso % (Auto) (0-2) % Neut # (Auto) (8407-8435) /uL Lymph # (Auto) (9882-1390) /uL [place] # (Auto) (0-900) /uL Eos # (Auto) (0-450) /uL Baso # (Auto) (0-100) /uL PT (10.1-12.7) SECONDS INR (0.9-1.3) APTT (26.4-36.2) SECONDS Sodium (137-145) mmol/L Potassium (3.4-5.1) mmol/L Chloride (98-107) mmol/L Carbon Dioxide (22-32) mmol/L BUN (9-20) mg/dL Creatinine (0.66-1.25) mg/dL Estimated GFR (>60) mL/min BUN/Creatinine Ratio (6-22) Glucose (80-110) mg/dL Calcium (8.4-10.2) mg/dL Total Bilirubin (0.2-1.3) mg/dL AST (17-59) IU/L ALT (<50) IU/L Alkaline Phosphatase (38-126) U/L Total Creatine Kinase (55-170) U/L CK-MB (CK-2) CK-MB (CK-2) Rel Index Troponin I (0.01-0.034) ng/mL Total Protein (6.3-8.2) g/dL Albumin (3.5-5.0) g/dL Globulin (1.7-4.1) g/dL Albumin/Globulin Ratio (1.0-2.8) Lipase (23-300) U/L SARS-CoV-2 (PCR) Negative (Negative) Imaging Data Chest x-ray: Radiologist's Impression: General: Healthy appearing, in no acute distress. Able to give a complete and coherent history. Well-nourished well- developed HEENT: Moist mucous membranes, normal sclera with reactive pupils, Neck: No JVD, supple Respiratory: Lungs are clear to auscultation, no wheezing no rales no rhonchi. Full and symmetrical air movement Cardiac: Regular rate and rhythm no murmurs no bruits Abdomen: Soft, nontender, good bowel tones, no flank pain Skin: Warm and dry, no rashes Neurologic: Grossly neurologically intact with no obvious asymmetries or abnormalities Extremities: No trauma, well perfused Psych: Cooperative, appropriate insight and affect ECG Data Interpretation: Atrial fibrillation at a rate of 123 No acute ischemic changes MDM Narrative Medical decision making narrative: 69-year-old gentleman with paroxysmal atrial fibrillation, currently anticoagulated with the definite time of onset of symptoms. Mildly symptomatic in terms of feeling the irregular rhythm and the rapid rate. Labs are reassuring. Patient is currently on atenolol for blood pressure. Alternatives risks and benefits are reviewed with him regarding cardioversion to treat his current atrial fibrillation. As he is anticoagulated and on chronic beta blockers he is safe to cardiovert. I did explain to him that I am not able to promise sustained sinus rhythm. He does have a scheduled follow-up with his material yard clerk in a week. Will need to review his increasingly frequent episodes of atrial fibrillation. He would like to proceed with elective electrical c ardioversion. 220 on further evaluation and in review with Dr. Muniz, material yard clerk, patient has only been anticoagulated for 10 days. Recommendations are for a full 3 weeks of anticoagulation before elective cardioversion and if prior to that he needs a transesophageal echo prior to cardioversion. Dr. Muniz has recommended transfer to [facility] observation admission for CHLOÉ and subsequent cardioversion. Will contact [facility] to see if beds are available. Changed plan is reviewed with patient and his and they continue to be very agreeable 305 Dr Tejada, hospitalist accepts transfer. As patient is hemodynamically stable he and his prefer to go POV and I believe this is safe and appropriate. With will arrange all transfer paperwork. Patient is supposed to go to the [facility] ER for registration and then proceed to his room on [facility] for admission. Discharge Plan Departure Patient Disposition: [facility] Clinical Impression: Paroxysmal atrial fibrillation Activity Restrictions/Additional Instructions: You are going to be directly admitted to [facility] for your paroxysmal atrial fibrillation. The room #3026 You need a transesophageal echocardiogram prior to and electrical cardioversion. Please go to [facility] ER for registration and then they will direct you to your room. You do not need to be seen in the ER at [facility] I have electronically transmitted a prescription for the 10 mg of nortriptyline capsule to [facility] so you can see if this lower dose has similar benefits without as many side effects. good luck Prescriptions: New nortriptyline 10 mg capsule 10 mg PO BEDTIME Qty: 30 RF: 0 No Action Glucosamine Sulfate (GLUCOSAMINE) 500 mg PO Q DAY Qty: 0 RF: 0 MULTIVITAMIN (#MULTIPLE VITAMINS) 1 cap PO Q DAY Qty: 0 RF: 0 Fish Oil (#FISH OIL) 1 iu PO Q DAY Qty: 0 RF: 0 silodosin [Rapaflo] 8 mg capsule 8 mg PO Q DAY Qty: 90 RF: 3 losartan 50 mg tablet 50 mg PO DAILY Qty: 90 RF: 1 atorvastatin 10 mg tablet 10 mg PO DAILY Qty: 90 RF: 1 atenolol 50 mg tablet 50 mg PO DAILY RF: 0 nortriptyline 25 mg capsule 25 mg PO BEDTIME Qty: 60 RF: 0 aspirin [Adult Low Dose Aspirin] 81 mg tablet,delayed release (DR/EC) 81 mg PO DAILY RF: 0 Folic Acid 1 tab PO DAILY RF: 0 Eliquis 5 mg tablet 5 mg PO BID Qty: 60 RF: 0 furosemide [Lasix] 20 mg tablet 20 mg PO DAILY Qty: 3 RF: 0 Referrals: Jj La MD [Primary Care Provider] -
[2020-08-18 10:43] LABS: Add Manual Diff / Slide Review NO; Basophils Absolute Auto 0 /uL (0-100); Basophils Percent Auto 0.3 % (0-2); Eosinophils Absolute Auto 100 /uL (0-450); Eosinophils Percent Auto 0.6 % (2-4); Hematocrit 45.4 % (41-53); Hemoglobin 15.2 g/dL (13.5-17.5); Lymphocytes Absolute Auto 300 /uL (1100-4500); Lymphocytes Percent Auto 3.1 % (25-40); Mean Corpuscular HGB Conc 33.6 % (30-36); Mean Corpuscular Hemoglobin 31.3 PG (26-34); Mean Corpuscular Volume 93.3 fL (80-100); Monocytes Absolute Auto 700 /uL (0-900); Monocytes Percent Auto 7.1 % (3-14); Neutrophils Absolute Auto 8800 /uL (1500-7000); Neutrophils Percent Auto 88.9 % (50-75); Platelet Count 238 X10^3/uL (150-400); Red Blood Cell Count 4.87 X10^6/uL (4.5-5.9); Red Cell Distribution Width 13.9 % (11.6-14.8); White Blood Cell Count 9.9 X10^3/uL (4.5-11.0)
[2020-08-18 10:56] LABS: Alanine Aminotransferase 38 IU/L (<50); Albumin 4.3 g/dL (3.5-5.0); Albumin Globulin Ratio 1.7 (1.0-2.8); Alkaline Phosphatase 72 U/L (38-126); Aspartate Aminotransferase 41 IU/L (17-59); BUN Creatinine Ratio 19.8 (6-22); Bilirubin Total 0.7 mg/dL (0.2-1.3); Blood Urea Nitrogen 21 mg/dL (9-20); Calcium 9.7 mg/dL (8.4-10.2); Carbon Dioxide 26 mmol/L (22-32); Chloride 106 mmol/L (98-107); Creatine Kinase 40 U/L (55-170); Estimated Glomerular Filt Rate > 60.0 mL/min (>60); Globulin 2.5 g/dL (1.7-4.1); Glucose 149 mg/dL (80-110); HEMOLYSIS 16 (0-50); Lipase 70 U/L (23-300); Potassium 4.6 mmol/L (3.4-5.1); Sodium 139 mmol/L (137-145); Total Protein 6.8 g/dL (6.3-8.2)
[2020-08-18 10:57] LABS: INR 1.3 (0.9-1.3); Prothrombin Time 15.3 SECONDS (10.1-12.7)
[2020-08-18 10:59] LABS: PTT Partial Thromboplastin Tim 57 SECONDS (26.4-36.2)
[2020-08-18 11:07] LABS: Troponin I < 0.012 ng/mL (0.01-0.034)
--- NOTE | 2020-08-18 11:20 | PC.NURSE ---
patient was seen 10 days ago for Afib. He was discharged home and then went back into Afib last night. He's sweating, lightheaded and tired. He states that he's short of breathe on exertion. His heart rate is 110 on the monitor.
[2020-08-18] MEDS: SODIUM CHLORIDE 0.9% 1,000 ML 1000 ML IV (11:33)
[2020-08-18 14:44] LABS: COVID19 -Nasal RAPID Negative (Negative)
== END 2020-08-18 15:40 | disposition short-term general hospital (02) ==
PROVIDERS: Emergency Provider Emergency Medicine; PCP Family Medicine
DX: I48.0 Paroxysmal atrial fibrillation (principal); Z20.822 Contact with and (suspected) exposure to COVID-19
CPT/HCPCS: 36415; 71045; 80053; 82550; 83690; 84484; 85025; 85610; 85730; 87635; 93005; 96360; 96361; 99284; C9803

== ENCOUNTER → 2020-11-08 08:36 | Outpatient (CLI) | payer OTHER, SELFPAY ==
[2020-11-08 11:44] LABS: Alanine Aminotransferase 24 IU/L (<50); Albumin Globulin Ratio 1.8 (1.0-2.8); Alkaline Phosphatase 69 U/L (38-126); Aspartate Aminotransferase 27 IU/L (17-59); BUN Creatinine Ratio 20.9 (6-22); Bilirubin Total 0.5 mg/dL (0.2-1.3); Blood Urea Nitrogen 19 mg/dL (9-20); Calcium 9.3 mg/dL (8.4-10.2); Carbon Dioxide 26 mmol/L (22-32); Chloride 107 mmol/L (98-107); Estimated Glomerular Filt Rate > 60.0 mL/min (>60); Globulin 2.2 g/dL (1.7-4.1); Glucose 91 mg/dL (80-110); HEMOLYSIS < 15 (0-50); Potassium 4.8 mmol/L (3.4-5.1); Sodium 139 mmol/L (137-145); Total Protein 6.2 g/dL (6.3-8.2)
[2020-11-10 07:50] LABS: Cholesterol, Total 123 mg/dL (100-199); HDL-Cholesterol 49 mg/dL (>39); HDL-Particle (Total) 34.4 umol/L (>=30.5); LDL Particle 576 nmol/L (<1000); LDL Size 19.9 nm (>20.5); LDL-Cholsterol 54 mg/dL (0-99); LP-IR Score 29 (<=45); Small LDL- Particle 383 nmol/L (<=527); Triglycerides 109 mg/dL (0-149)
== END ==
PROVIDERS: PCP Family Medicine; Visit Provider Specialist
DX: E78.00 Pure hypercholesterolemia, unspecified (principal); I48.0 Paroxysmal atrial fibrillation
CPT/HCPCS: 36415; 80053; 80061; 83704; 83735

== ENCOUNTER → 2020-11-24 10:41 | Outpatient (CLI) | payer OTHER, SELFPAY ==
[2020-11-24 10:50] LABS: RBC Urine None Seen (0-5/HPF)
[2020-11-24 12:00] LABS: Add Manual Diff / Slide Review NO; Basophils Absolute Auto 0 /uL (0-100); Basophils Percent Auto 0.8 % (0-2); Eosinophils Absolute Auto 100 /uL (0-450); Eosinophils Percent Auto 2.5 % (2-4); Hematocrit 44.8 % (41-53); Lymphocytes Absolute Auto 500 /uL (1100-4500); Lymphocytes Percent Auto 10.1 % (25-40); Mean Corpuscular HGB Conc 33.5 % (30-36); Mean Corpuscular Hemoglobin 31.1 PG (26-34); Mean Corpuscular Volume 92.7 fL (80-100); Monocytes Absolute Auto 600 /uL (0-900); Monocytes Percent Auto 12.9 % (3-14); Neutrophils Absolute Auto 3600 /uL (1500-7000); Neutrophils Percent Auto 73.7 % (50-75); Platelet Count 217 X10^3/uL (150-400); Red Blood Cell Count 4.84 X10^6/uL (4.5-5.9); Red Cell Distribution Width 13.5 % (11.6-14.8); White Blood Cell Count 4.9 X10^3/uL (4.5-11.0)
[2020-11-24 12:19] LABS: Hemoglobin A1C% w Est Avg Glu 5.5 % (4.0-6.0)
[2020-11-24 13:36] LABS: Appearance Urine UA CLEAR; Bilirubin Urine UA NEGATIVE (NEGATIVE); Color Urine UA YELLOW; Glucose Urine UA NEGATIVE (Negative); Ketones Urine UA NEGATIVE (NEGATIVE); Leukocyte Esterase Urine UA NEGATIVE (NEGATIVE); Nitrite Urine UA NEGATIVE (Negative); Occult Blood Urine UA NEGATIVE (Negative); Protein Urine UA NEGATIVE (Negative); Urobilinogen Urine UA 0.2 E.U./dL (0.2); pH Urine UA 5.5 (4.5-8.0)
[2020-11-24 14:08] LABS: Bacteria Urine Occasional (0-1); Culture Indicated Urine Cult Not Indicated; Mucus Urine 1+ (Negative); Squamous Epithelial Cell Urine 0-1 /HPF (0-5/HPF); WBC Urine 0-1/HPF (0-5/HPF)
[2020-11-24 14:18] LABS: BUN Creatinine Ratio 19.6 (6-22); Blood Urea Nitrogen 18 mg/dL (9-20); Calcium 9.9 mg/dL (8.4-10.2); Carbon Dioxide 26 mmol/L (22-32); Chloride 105 mmol/L (98-107); Estimated Glomerular Filt Rate > 60.0 mL/min (>60); Glucose 93 mg/dL (80-110); HEMOLYSIS < 15 (0-50); Potassium 5.1 mmol/L (3.4-5.1); Sodium 140 mmol/L (137-145)
== END ==
PROVIDERS: PCP Family Medicine; Referring Provider Orthopaedic Surgery; Visit Provider Orthopaedic Surgery
DX: R73.9 Hyperglycemia, unspecified (principal); Z01.812 Encounter for preprocedural laboratory examination; N39.0 Urinary tract infection, site not specified
CPT/HCPCS: 36415; 80048; 81001; 83036; 85025

== ENCOUNTER 2020-12-19 10:12 | Emergency (ER) | payer OTHER, SELFPAY ==
[2020-12-19 10:32] VITALS: BP 188/87; PULSE 60; RESP 14; TEMP 36.7; O2SAT 99; BMI 24.8
[2020-12-19] MEDS: ONDANSETRON 4 MG/2 ML INJ IV (11:00)
[2020-12-19] MEDS: KETOROLAC 30 MG/ML VIAL 15 MG IV (11:00)
[2020-12-19 11:01] LABS: Add Manual Diff / Slide Review NO; Basophils Absolute Auto 0 /uL (0-100); Basophils Percent Auto 0.3 % (0-2); Eosinophils Absolute Auto 0 /uL (0-450); Eosinophils Percent Auto 0.3 % (2-4); Hematocrit 47.3 % (41-53); Hemoglobin 15.9 g/dL (13.5-17.5); Lymphocytes Absolute Auto 600 /uL (1100-4500); Lymphocytes Percent Auto 6.4 % (25-40); Mean Corpuscular HGB Conc 33.7 % (30-36); Mean Corpuscular Hemoglobin 31.3 PG (26-34); Mean Corpuscular Volume 93.1 fL (80-100); Monocytes Absolute Auto 800 /uL (0-900); Monocytes Percent Auto 8.5 % (3-14); Neutrophils Absolute Auto 8000 /uL (1500-7000); Neutrophils Percent Auto 84.5 % (50-75); Platelet Count 221 X10^3/uL (150-400); Red Blood Cell Count 5.09 X10^6/uL (4.5-5.9); Red Cell Distribution Width 13.6 % (11.6-14.8); White Blood Cell Count 9.5 X10^3/uL (4.5-11.0)
--- NOTE | 2020-12-19 11:05 | ED_ITS ---
HPI - Male Genitourinary General Chief complaint: Urogenital-Male Stated complaint: states kidney stone Time Seen by Provider: 12/19/20 10:51 Source: patient Mode of arrival: Ambulatory Limitations: no limitations History of Present Illness HPI Narrative: The patient 70-year-old male with history of hairy cell leukemia paroxysmal atrial fibrillation on Pradaxa, history of kidney stones with multiple lithotripsies and stents presenting today with left flank pain similar to prior kidney stone. Pain started at midnight. Radiates around to his groin similar to previous kidney stones. He has had rashmi colored urine for couple of days but pain did not start until last night. He has not had any fever or chills. He has had nausea off and on with some vomiting. Related Data Home Medications Medication Instructions Recorded Confirmed Glucosamine Sulfate (GLUCOSAMINE) 500 mg PO Q DAY #0 01/29/11 08/04/20 Fish Oil (#FISH OIL) 1 iu PO Q DAY #0 01/28/12 08/04/20 MULTIVITAMIN (#MULTIPLE VITAMINS) 1 cap PO Q DAY #0 01/28/12 08/04/20 Folic Acid 1 tab PO DAILY 07/01/19 08/04/20 aspirin 81 mg tablet,delayed 81 mg PO DAILY 07/01/19 08/04/20 release (Adult Low Dose Aspirin) atenolol 50 mg tablet 50 mg PO DAILY 06/17/20 08/04/20 dabigatran etexilate 150 mg 150 mg PO BID 09/14/20 capsule (Pradaxa) flecainide 50 mg tablet 50 mg PO Q12H 09/14/20 Previous Rx's Medication Instructions Recorded losartan 50 mg tablet 50 mg PO DAILY #90 tab 11/05/19 atorvastatin 10 mg tablet 10 mg PO DAILY #90 tab 01/30/20 silodosin 8 mg capsule See Rx Instructions .ROUTE 09/08/20 .COMPLEX #90 cap nortriptyline 10 mg capsule See Rx Instructions .ROUTE 12/02/20 .COMPLEX #90 cap cephalexin 500 mg capsule 500 mg PO BID 7 Days #14 cap 12/19/20 hydrocodone 5 mg-acetaminophen 325 1 tab PO Q6H PRN #10 tab 12/19/20 mg tablet metoclopramide HCl 10 mg tablet 10 mg PO Q6H PRN #20 tab 12/19/20 (Reglan) Allergies Allergy/AdvReac Type Severity Reaction Status Date / Time Sulfa (Sulfonamide Allergy Intermediate HIVES, Verified 12/19/20 10:37 Antibiotics) FEVER ciprofloxacin Allergy Mild RASH Verified 12/19/20 10:37 floxacillin Allergy Mild RASH Verified 12/19/20 10:37 allopurinol [ALLOPURINOL] Allergy Unknown Verified 12/19/20 10:37 Review of Systems Review of Systems Narrative: GENERAL: Denies chills, fatigue, malaise, fever, sweats, travel HEENT: Denies sinus pain, ear pain, sore throat, difficulty swallowing, neck pain RESPIRATORY: Denies dyspnea, cough, wheezing, hemoptysis, sputum. CARDIOVASCULAR: Denies chest pain, palpitations, orthopnea, edema GASTROINTESTINAL: Denies nausea, vomiting, abdominal pain, diarrhea, constipation, melena. : See HPI MUSCULOSKELETAL: Denies weakness, joint pain, or bony pain SKIN: No rash, no erythema, no pruritus NEUROLOGIC: Denies weakness, dizziness, headache, numbness, change in speech, c onfusion PSYCHIATRIC: No concerning psychosocial issues. 12 point review of systems is negative except for those stated above and HPI Patient History Medical History Atrial fibrillation (1993) Chicken pox (~1954) Chronic back pain (1964) Diverticular disease (~2009) Hearing loss (~1976) Hypertension (~1985) Kidney stones (2006) Left hip pain Leukemia (~1991) Measles (~1954) Mumps (~1954) Plantar warts Recurrent sinusitis (~2008) Shoulder pain (2011) Tinnitus (~1979) Vertigo (2010) Surgical History Anesthesia History of colonoscopy (04/04/07) History of lithotripsy (2006) History of lithotripsy (2013) History of lithotripsy (2014) Status post hernia repair (1959) Status post hernia repair (2006) Status post knee surgery (1969) Status post knee surgery (1979) Status post wrist surgery (~1979) Family History Brother Age: 69 Leukemia Father Alzheimer's disease Mother Breast cancer Cancer Sister Age: 75 Ovarian cancer Cancer Sister No problems noted. Social History Smoking Status: Former smoker Smoking Status: Former smoker alcohol intake frequency: 0-2 drinks per day Substance Use Type: does not use Exam Initial Vital Signs Initial Vital Signs: Vital Signs Temperature 98.1 F 12/19/20 10:32 Pulse Rate 60 12/19/20 10:32 Respiratory Rate 14 12/19/20 10:32 Blood Pressure 188/87 H 12/19/20 10:32 Pulse Oximetry 99 12/19/20 10:32 GENERAL: Alert well-appearing 70-year-old male no longer in severe pain and in no acute distress. HEENT: Head atraumatic,EOMI, pupils reactive, face symmetric, moist mucous membranes CARDIOVASCULAR: Regular rate and rhythm without murmurs, rubs or gallops. RESPIRATORY: Breath sounds equal bilaterally, no wheezes rales or rhonchi. ABDOMEN: Soft, nontender. Normoactive bowel sounds all 4 quadrants. No guarding or rebound. : Left flank pain EXTREMITIES: Normal range of motion, no clubbing or edema. Neurovascularly intact NEUROLOGICAL: Alert and oriented x4.Normal gait and speech SKIN: Warm, dry, no laceration, no petechiae, no rashes or lesions. Course Orders Ordered: ED Orders 12/19/20 10:50 CMP [Comprehensive Metabolic Panel] Stat Complete Blood Count AUTO DIFF Stat Urine Culture Stat Urine Microscopic Stat 12/19/20 11:04 CT kidney ureter bladder (KUB) Stat Discontinued Medications Ketorolac Tromethamine (Ketorolac 30 Mg/Ml Vial) 15 mg IV NOW ONE Stop: 12/19/20 10:42 Last Admin: 12/19/20 11:00 Dose: 15 mg Documented by: SOULEYMANE Ondansetron HCl (Ondansetron 4 Mg/2 Ml Inj) 4 mg IV NOW ONE Stop: 12/19/20 10:39 Last Admin: 12/19/20 11:00 Dose: 4 mg Documented by: SOULEYMANE Vital Signs Vital signs: Vital Signs - 8 hr 12/19/20 10:32 12/19/20 12:13 Temperature 98.1 F Pulse Rate 60 57 L Respiratory Rate 14 18 Blood Pressure 188/87 H 134/71 Pulse Oximetry 99 100 MDM - Male Genitourinary Lab Data Result diagrams: 12/19/20 10:50 12/19/20 10:50 Labs: Lab Results 12/19/20 12/19/20 12/19/20 Range/Units 10:50 10:50 10:50 WBC 9.5 (4.5-11.0) X10^3/uL RBC 5.09 (4.5-5.9) X10^6/uL Hgb 15.9 (13.5-17.5) g/dL Hct 47.3 (41-53) % MCV 93.1 (80-100) fL MCH 31.3 (26-34) PG MCHC 33.7 (30-36) % RDW 13.6 (11.6-14.8) % Plt Count 221 (150-400) X10^3/uL Neut % (Auto) 84.5 H (50-75) % Lymph % (Auto) 6.4 L (25-40) % Collier % (Auto) 8.5 (3-14) % Eos % (Auto) 0.3 L (2-4) % Baso % (Auto) 0.3 (0-2) % Neut # (Auto) 8000 H (1338-9286) /uL Lymph # (Auto) 600 L (4936-1319) /uL Collier # (Auto) 800 (0-900) /uL Eos # (Auto) 0 (0-450) /uL Baso # (Auto) 0 (0-100) /uL Sodium 139 (137-145) mmol/L Potassium 4.6 (3.4-5.1) mmol/L Chloride 107 (98-107) mmol/L Carbon Dioxide 23 (22-32) mmol/L BUN 18 (9-20) mg/dL Creatinine 0.95 (0.66-1.25) mg/dL Estimated GFR > 60.0 (>60) mL/min BUN/Creatinine Ratio 18.9 (6-22) Glucose 118 H (80-110) mg/dL Calcium 10.0 (8.4-10.2) mg/dL Total Bilirubin 0.5 (0.2-1.3) mg/dL AST 42 (17-59) IU/L ALT 36 (<50) IU/L Alkaline Phosphatase 79 (38-126) U/L Total Protein 7.8 (6.3-8.2) g/dL Albumin 5.0 (3.5-5.0) g/dL Globulin 2.8 (1.7-4.1) g/dL Albumin/Globulin Ratio 1.8 (1.0-2.8) Urine RBC 10-30/hpf H (0-5/HPF) Urine WBC 1-5/hpf (0-5/HPF) Amorphous Sediment 1+ Urine Bacteria Few (2-10) H (None) Urine Mucus 1+ H (Negative) Ur Culture Indicated? Specimen cultured Urine Dip Bedside Urine Glucose Negative Bedside Urine Bilirubin - Negative Bedside Urine Ketone - Negative Urine Specific Elaine 1.015 Bedside Urine Occult Blood +++ Bedside Urine pH 6.0 Bedside Urine Protein - Negative Bedside Urine Urobilinogen - Negative Bedside Urine Nitrite - Negative Bedside Urine Leukocytes - Negative Esterase Imaging Data CT scan - abdomen/pelvis: Radiologist's Impression: PROCEDURE: CT KIDNEY URETER BLADDER (KUB) INDICATIONS: left flank pain TECHNIQUE: Axial sections were acquired from the lung bases to the pubic symphysis. Coronal and sagittal reformats were performed. For radiation dose reduction, the following was used: automated exposure control, adjustment of mA and/or kV according to patient size. COMPARISON: [facility], US, US ABDOMEN, 08/17/2016, 7:12. [facility], CT, KIDNEY/ URETER/BLADDER, 07/21/2013, 23:22. [facility], CT, KUB - CT (PNL), 07/28/2014, 14:05. [facility], CT, KIDNEY/ URETER/BLADDER, 04/13/2014, 10:51. FINDINGS: Image quality: Excellent. Lung bases: Mild left basilar atelectasis. There is a small hiatal hernia. Heart: Heart size is normal. Minimal coronary artery calcification. URINARY: There is a 4 mm stone in the proximal left ureter. There is mild left hydronephrosis. Small nonobstructive stones are seen in kidneys bilaterally. There is a 3 mm stone in the inferior pole of the left kidney, and a 4 mm stone in the inferior pole of the right kidney. No right hydronephrosis. Mild bilateral perinephric stranding. No bladder stones. Bladder wall thickness is normal. ABDOMEN: Liver: Liver is normal in size. There is a large cyst in the right hepatic lobe measures 11.3 cm AP x 8.8 cm transverse x 9.6 cm cephalocaudal, which has increased in size since the last exam. There is increased density in the gravity dependent area of the cyst, probably secondary to hemorrhage. Numerous smaller hypodensities are also likely cysts. Gallbladder: Unremarkable. Biliary ducts: Unremarkable. Pancreas: Unremarkable. Spleen: Unremarkable. Adrenal Glands: Unremarkable. Stomach and Bowel: Stomach, small bowel loops, and colon are normal in caliber. There are multiple colonic diverticula. Appendix is normal. Peritoneum: No abnormal intraperitoneal fluid. No free air. Ventral Wall: No hernia. Abdominal Nodes: No enlarged retroperitoneal or mesenteric lymph nodes. Vessels: Aorta and inferior vena cava are normal in size. PELVIS: Pelvic Organs: Unremarkable. Pelvic Nodes: Unremarkable. Miscellaneous: Small fat containing left inguinal hernia is noted. Bones: Grade 1 anterolisthesis of L5 on S1 secondary to bilateral L5 pars defects. Degenerative disc and facet disease in the lower thoracic and lumbar spine. IMPRESSION: 1. There is a 4 mm obstructive stone in the proximal left ureter causing mild left hydronephrosis. 2. Bilateral nonobstructive renal calculi are present. 3. Multiple hepatic cysts. The largest cyst is in the right hepatic lobe measuring 11.3 x 8.8 x 9.6 cm, increased in size compared to the last exam. There is increased attenuation in the gravity dependent area of the cyst, suggesting hemorrhagic product. Nonurgent rvdtmg-bm-ch ultrasound is suggested for further evaluation to rule out solid component of the cyst. 4. Small hiatal hernia. 5. Grade 1 anterolisthesis of L5 on S1 secondary to bilateral L5 pars defects. Degenerative changes are noted in the lower thoracic spine and lumbar spine. Dictated by: Dolores Ambrosio M.D. on 12/19/2020 at 11:27 Approved by: Dolores Ambrosio M.D. on 12/19/2020 at 11:39 [facility] Narrative Medical decision making narrative: Patient is found have a 4 mm kidney stone in left ureter. He does have some bacteria in his urine or nitrites. Will start him on Keflex. He has had allergies to penicillins in the past which cause rashes but no anaphylactic reactions. I discussed this with him he understands and is agreeable to take it. He has previously been seen by Dr. Gauthier for Urology I recommend he follow up with him and his PCP. Pain is overall significantly better after Toradol. However he is on Pradaxa and or focal or Motrin with Pradaxa. Discharge Plan Departure Patient Disposition: Home Clinical Impression: Kidney stones Instructions: DI for Kidney Stones Activity Restrictions/Additional Instructions: * You've been diagnosed with kidney stone * What to do: Increase fluid intake, Strain urine, try to catch stone * Please follow-up with your primary care provider in the next 2-3 days, you may require urology consultation please discuss this with -If you should have fever, or pain is uncontrolled with medication at home or any other concerning symptoms return to ER for further evaluation MEDICATIONS--> SENT TO [facility] butt Take [place] every 6 hours if needed for severe pain Take Reglan every 6 hours if needed for nausea CONTROLLED SUBSTANCE DISCHARGE (Narcotoic/benzodiazepine) 1. You have been prescribed narcotic medications, it does have damion taminophen/Tylenol/paracetamol in it so do not take extra Tylenol or Tylenol containing products 2. Please understand that we cannot provide further refills of narcotics, benzodiazepines or controlled substances through the ED and her pain management will need to be through your provider. 3. While on these medications you cannot drive or operate heavy machinery. 4. You cannot sign legal documents or perform any duties such as this. 5. As long as you're taking opiate pain medications he should also be taking a stool softener such as Colace, Dulcolax, MiraLAX or prune juice, to help avoid constipation. Prescriptions: New hydrocodone-acetaminophen 5-325 mg tablet 1 tab PO Q6H PRN (Reason: pain) Qty: 10 RF: 0 metoclopramide HCl [Reglan] 10 mg tablet 10 mg PO Q6H PRN (Reason: nausea and vomiting) Qty: 20 RF: 0 cephalexin 500 mg capsule 500 mg PO BID 7 Days Qty: 14 RF: 0 No Action Glucosamine Sulfate (GLUCOSAMINE) 500 mg PO Q DAY Qty: 0 RF: 0 MULTIVITAMIN (#MULTIPLE VITAMINS) 1 cap PO Q DAY Qty: 0 RF: 0 Fish Oil (#FISH OIL) 1 iu PO Q DAY Qty: 0 RF: 0 losartan 50 mg tablet 50 mg PO DAILY Qty: 90 RF: 1 atorvastatin 10 mg tablet 10 mg PO DAILY Qty: 90 RF: 1 silodosin 8 mg capsule See Rx Instructions .ROUTE .COMPLEX Qty: 90 RF: 2 flecainide 50 mg tablet 50 mg PO Q12H RF: 0 Pradaxa 150 mg capsule 150 mg PO BID RF: 0 nortriptyline 10 mg capsule See Rx Instructions .ROUTE .COMPLEX Qty: 90 RF: 0 atenolol 50 mg tablet 50 mg PO DAILY RF: 0 aspirin [Adult Low Dose Aspirin] 81 mg tablet,delayed release (DR/EC) 81 mg PO DAILY RF: 0 Folic Acid 1 tab PO DAILY RF: 0 Referrals: Jj La MD [Primary Care Provider] - Juana Gauthier MD [Physician] -
[2020-12-19 11:23] LABS: Alanine Aminotransferase 36 IU/L (<50); Albumin Globulin Ratio 1.8 (1.0-2.8); Alkaline Phosphatase 79 U/L (38-126); Aspartate Aminotransferase 42 IU/L (17-59); BUN Creatinine Ratio 18.9 (6-22); Bilirubin Total 0.5 mg/dL (0.2-1.3); Blood Urea Nitrogen 18 mg/dL (9-20); Carbon Dioxide 23 mmol/L (22-32); Chloride 107 mmol/L (98-107); Estimated Glomerular Filt Rate > 60.0 mL/min (>60); Globulin 2.8 g/dL (1.7-4.1); Glucose 118 mg/dL (80-110); HEMOLYSIS 25 (0-50); Potassium 4.6 mmol/L (3.4-5.1); Sodium 139 mmol/L (137-145); Total Protein 7.8 g/dL (6.3-8.2)
[2020-12-19 11:55] LABS: RBC Urine 10-30/HPF (0-5/HPF)
[2020-12-19 11:56] LABS: Amorphous Sediment Urine 1+; Bacteria Urine Few (2-10); Culture Indicated Urine Specimen Cultured; Mucus Urine 1+ (Negative); WBC Urine 1-5/HPF (0-5/HPF)
[2020-12-19 12:13] VITALS: BP 134/71; PULSE 57; RESP 18; O2SAT 100
== END 2020-12-19 12:14 | disposition home or self-care (01) ==
PROVIDERS: Emergency Provider Emergency Medicine; PCP Family Medicine
DX: N20.0 Calculus of kidney (principal)
CPT/HCPCS: 36415; 74176; 80053; 81003; 81015; 85025; 87086; 96374; 96375; 99284; J1885; J2405

== ENCOUNTER → 2021-01-18 10:50 | Outpatient (CLI) | payer OTHER, SELFPAY ==
[2021-01-18 14:04] LABS: COVID19 -Nasal RAPID Negative (Negative)
== END ==
PROVIDERS: PCP Family Medicine; Visit Provider Physician Assistant
DX: Z20.822 Contact with and (suspected) exposure to COVID-19 (principal); Z01.812 Encounter for preprocedural laboratory examination
CPT/HCPCS: 87635

== ENCOUNTER 2021-01-19 06:22 | Observation (INO) | payer OTHER, SELFPAY ==
[2021-01-11 07:58] VITALS: BMI 25.1
[2021-01-19] VITALS (12 sets, daily range): BP systolic 93–112; BP diastolic 34–67; PULSE 51–62; RESP 10–20; TEMP 36.1–37.3; O2SAT 92–97; BMI 24.7
--- NOTE | 2021-01-19 06:35 | DI.RAD.S_ITS ---
PROCEDURE: XR HIP W PEL IF DONE LT 2V INDICATIONS: anterior MELBA inner op/not post TECHNIQUE: Left hip fluoroscopic spot films were obtained intraoperatively. COMPARISON: [facility], , XR HIP W PEL IF DONE LT 2V, 08/04/2020, 15:06. FINDINGS: Low resolution fluoroscopic intraoperative spot films were obtained during a left hip arthroplasty. IMPRESSION: 1. Fluoroscopic guidance Approved by: Doc Phillip M.D. on 01/19/2021 at 12:05
[2021-01-19] MEDS: LACTATED RINGERS 1,000 ML 42 ML IV ×2 (07:17→08:51)
[2021-01-19] MEDS: VANCOMYCIN 1,000 MG/200 ML PIGGYBACK 200 MG IV (07:17)
[2021-01-19] MEDS: ACETAMINOPHEN 325 MG TABLET 975 MG PO (07:18)
[2021-01-19] MEDS: PREGABALIN 75 MG CAPSULE PO (07:19)
--- NOTE | 2021-01-19 07:39 | P.OP_ITS ---
Operative Date/Time/Diagnoses Date of procedure: 01/19/21 Time of procedure: 08:00 Pre-op diagnosis: Severe left hip osteoarthritis Post-op diagnosis: same Procedure & Clinicians Procedure: Left total hip arthroplasty anterior approach Same procedure as scheduled: Yes Indications: The patient has had progressively worsening left hip pain with radiographic changes consistent with arthritis. Non-operative management has failed and the patient has requested total hip replacement. The risks, benefits and alternatives to surgery were discussed with the patient prior to proceeding. Risks discussed included, but were not limited to, failure to relieve pain, leg length discrepancy, dislocation, stiffness, infection, nerve damage, deep venous thrombosis, pulmonary embolism, stroke, coma, heart attack, permanent paralysis and , as well as the potential need for eventual revision of the prosthetic. Surgeon: Quita Mejia Md Senior Research Scientist: James Washington Anesthesia Type: General and Spinal Operative Notes Findings: Severe left hip osteoarthritis, adequate stability Closure Type: primary Specimen(s): none sent Prosthetic devices, grafts, tissues, transplants, or devices: [employer] anthology size 8 standard offset, R3 60, -3 by 36, neutral poly 60 by 36, one 6.5 screw Estimated Blood Loss (mL): 250 Blood products transfused: none Procedure in detail: The patient was brought to the operating room. Patient was carefully positioned in the supine position. Time-out was performed and antibiotics were given. Anesthesia was induced. He was positioned in the on the table in order to allow hyperextension of the hip. The left lower extremity was prepped and draped in a standard sterile fashion. An anterior left hip incision was made 1 fingerbreadth lateral to the anterior superior iliac spine and extended distally towards the greater trochanter. Dissection was carried out through skin and subcutaneous tissues. Superficial hemostasis was achieved. The fascia over the tensor fascia tesfaye was defined and incised with a knife. Two Allis clamps were used to grasp the fascia. Tensor fascia tesfaye was retracted laterally. A gelpi retractor was placed. Dissection was carried out down along the neck. The circumflex vessels were carefully identified and cauterized with the Aqua Mantis. There was good visualization of the femoral neck. A Cobra was placed superior to the neck and the gluteus fibers were carefully stripped from that superior aspect of the capsule. A 2nd retractor was placed along the inferior aspect of the neck. The rectus insertion along the capsule was partially released. A 3rd retractor that was then gently placed over the rim of the acetabulum under the rectus. Capsule was carefully incised and released from the intertrochanteric line circumferentially superior to the mid sagittal line and inferiorly to the mid sagittal line until the lesser trochanter was palpable. A tag stitch was placed both in the superior and inferior limb of the capsular insertion. Along the acetabulum capsule was also released up to the mid sagittal 12:00 position. A portion of the labrum was resected. A saw was used to perform an osteotomy at the level of the intertrochanteric line and the junction of the superior femoral neck leaving approximately 1 finger breath of residual inferior neck above the lesser trochanter. A 2nd cut was made along the femoral neck at the base of the head and a napkin ring of neck was removed. Corkscrew was placed in the femoral head and the head was removed without difficulty. Retractors were then repositioned around the acetabulum. Residual labrum was resected and additional osteophytes were removed. A reamer that was 4 mm below the templated size was placed by hand in the acetabulum and it was reamed to centralize the acetabulum. It was then reamed up to 2 under the templated size and fluoroscopy was brought in to confirm the position of the reaming and depth of reaming. I reamed 1 under the anticipated size. A trial cup was placed and noted that it was appropriately sized and fluoroscopy confirmed position and depth. The component was open and inserted without difficulty fluoroscopic imaging was used to confirm that the cup had been adequately seated and was well positioned. It was further stabilized with a screw. Neutral poly liner was placed. The cup was tested and noted to be stable. Attention was then directed to the femur. The femur was gently hyperextended additional capsular release was performed as needed in order to allow adequate visualization of the proximal femur with elevation of the femur. Patient was placed in a hyperextended slightly adducted position with maximum external rotation. Box osteotome was used to check for any residual neck as well as sclerotic bone along the trochanter. Carriere pepper was placed in the femur. Additional broaching was performed. Canal finder was used to determine the alignment of the canal and position. Size 1 broach was placed. The canal was then appropriately broached up to the templated size as long as there was adequate stability of the broach and serial advancement of the broach without excessive impingement. Specific attention was directed at avoiding varus attempting to direct the distal aspect of the broach more anteriorly and avoiding excessive anteversion. Trial reduction showed acceptable range of motion, good stability, no posterior impingement, alevism of leg length and appropriate lateral shuck. I also hyperflexed the hip and checked that there was no impingement anteriorly and there was good stability with flexion, adduction and internal rotation. The stem position was meticulously checked and I attempted to further broach distally and correct any varus. I was able to go up one stem size Marcaine and Exparel were injected. The stem was placed without difficulty. Repeat trial reduction and x-ray showed acceptable overall position, length, and no evidence of the femoral fracture. Final head was placed. Wound was metic ulously irrigated with normal saline. The hip was reduced and additional Exparel and Marcaine were injected. The capsule was closed with interrupted nonabsorbable sutures. The fascia of the tensor was closed with interrupted and running Vicryl. No drain was placed. Any tensor fascia tesfaye muscle that appeared to be contused or injured which was a minimal amount was carefully resected. Capsule around the tensor was injected with Exparel and Marcaine. The skin was closed with barbed stitches for the subcutaneous tissue and skin. We also used surgical glue. The wound was dressed sterilely. Brief Betadine soak was also used and was meticulously irrigated with normal saline. Patient was transferred to recovery room in satisfactory condition. Complications: none Post-operative Condition: stable Disposition: Acute Care Plan for aftercare: The patient will be maintained on a standard total hip replacement protocol with weight bearing as tolerated and anterior hip precautions. The patient will receive Aspirin and sequential compression devices for DVT prophylaxis. The patient will be discharged home when safe for the home environment.
--- NOTE | 2021-01-19 07:39 | PM.PREOP ---
Pre-operative Note COVID-19 COVID-19 status: Negative Interval Note History & Physical reviewed/Exam performed by Physician: Yes Changes to H&P: No
--- NOTE | 2021-01-19 08:00 | DI.RAD.S_ITS ---
PROCEDURE: XR HIP W PEL IF DONE LT 2V INDICATIONS: LEFT TOTAL HIP TECHNIQUE: 2 view(s) of the hip acquired. COMPARISON: , [facility], XR HIP W PEL IF DONE LT 2V, 01/19/2021, 9:24. FINDINGS: Bones: Patient is status post left hip arthroplasty, with hardware components in expected positions. The hip joint appears congruent. The visualized bony structures appear intact. Soft tissues: Overlying postoperative changes are noted. No suspicious soft tissue densities. IMPRESSION: Surgical changes reflecting left hip arthroplasty. Dictated by: Jo Ann Charles M.D. on 01/19/2021 at 15:17 Approved by: Jo Ann Charles M.D. on 01/19/2021 at 15:18
[2021-01-19] MEDS: CEFAZOLIN 1 GM VIAL 2 GM IV ×2 (08:11→16:25)
[2021-01-19] MEDS: TRANEXAMIC ACID 1,000 MG VIAL 2000 MG INJ ×2 (08:12→11:02)
--- NOTE | 2021-01-19 08:36 | SUR.OPER ---
Patient supine on padded [place] table, one arm on padded arm board at <90, other arm padded and secured with tape across patient's chest, both legs secured in padded traction boots and positioned per surgeon, padded post at patient's groin, pressure points checked and padded.
[2021-01-19] MEDS: BUPIVACAINE LIPOSOME 266 MG/20 ML VIAL INJ (08:43)
[2021-01-19] MEDS: BUPIVACAINE 0.25% W/ EPI 30 ML VIAL 60 ML INJ (08:43)
[2021-01-19] MEDS: SODIUM CHLORIDE IRRIG SOLUTION 250 ML, POVIDONE-IODINE SPONGE STICKS 1 APPLIC IRR (08:46)
[2021-01-19] MEDS: IBUPROFEN 400 MG TABLET PO ×2 (13:09→16:26)
[2021-01-19] MEDS: LACTATED RINGERS 1,000 ML 125 ML IV ×2 (13:10→21:15)
[2021-01-19] MEDS: ACETAMINOPHEN 325 MG TABLET 650 MG PO ×2 (14:45→20:50)
--- NOTE | 2021-01-19 17:05 | PT.IIE ---
Current Diagnoses Unilateral primary osteoarthritis, left hip (01/19/21) Surgery Performed Operation Date: 01/19/21 07:45 Actual Procedures p Total Hip Arthroplasty/Anterior Approach(Left) - Quita Mejia MD Surgical History (Last Updated 01/10/21 @ 14:28 by Jacquie Nguyen RN) Anesthesia History of lithotripsy (2006) History of lithotripsy (2013) History of lithotripsy (2014) Status post hernia repair (1959) Status post hernia repair (2006) Status post knee surgery (1969) Status post knee surgery (1979) Medical History (Last Updated 01/13/21 @ 08:48 by Jj La MD) Ascending aorta enlargement Atrial fibrillation (1993) Chicken pox (~1954) Chronic back pain (1964) DDD (degenerative disc disease), lumbar Diverticular disease (~2009) Hairy cell leukemia Hearing loss (~1976) Heartburn Hepatic cyst Hernia HLD (hyperlipidemia) Hypertension (~1985) Kidney stones (2006) Left hip pain Leukemia (~1991) Measles (~1954) Mumps (~1954) Neuropathy Osteoarthritis PAF (paroxysmal atrial fibrillation) Palpitations Plantar warts Recurrent sinusitis (~2008) Shingles (~05/2020) Shoulder pain (2011) Tinnitus (~1979) Vertigo (2010) Physical Therapy Inpatient Evaluation/Re-Eval M1 PT/OT-IP Prior Functional Status Start: 01/19/21 17:51 Freq: NEEDED Status: Active Protocol: Document 01/19/21 17:05 DL (Rec: 01/19/21 18:08 [facility] [id number]) Medical Review Prior Functional Status Medical History Reviewed Yes Diet/Fluid Consistency Regular Communication WNL, glassess all the time Mobility and Gait Independent without a device Activities of Daily Living and IADL's Independent Social History Household Members spouse Living Arrangements House Number of Floors (Floors) Two Floors Number of Stairs To Enter/Railing? 8 steps up to master BR, 2 steps to enter house, all steps one rail Home Environment Standard Height Toilet,Walk in Shower Home Equipment Front Wheel Walker,Straight Cane,Bedside Commode,Long Handled Shoe Horn,Economics Lecturer,Sock Aid Employment Status Retired Additional Social History Comment dressing stick M2 PT-IP Current Condition Start: 01/19/21 17:51 Freq: NEEDED Status: Active Protocol: Document 01/19/21 17:05 DLM (Rec: 01/19/21 18:08 [facility] [id number]) Physical Therapy Current Condition Current Condition Evaluation Date 01/19/21 Treatment Diagnosis left MELBA, anterior, impaired gait Onset Date 01/19/21 Precautions Anterior Hip Precautions No Hip Extension,No Hip External Rotation Other Precautions hx of A-fib Weight Bearing Status Weight Bearing Status Weight Bear as Tolerated M3 PT-IP Subjective Start: 01/19/21 17:51 Freq: NEEDED Status: Active Protocol: Document 01/19/21 17:05 DLM (Rec: 01/19/21 18:08 [facility] [id number]) Subjective Physical Therapy Visit Type Type Initial Evaluation Visit Start Time 16:10 Visit Stop Time 17:05 Total Visit Minutes 55 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 of 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 Visits 0 Physical Therapy Visit Comments Patient Comments He reports no hip pain today since surgery Patient Goals Discharge home with his tomorrow Therapy Pain Assessment Pain When Pain Assessed During Mobility Pain Present Pain Present Denied Pain M4 PT-IP Mobility and Gait Start: 01/19/21 17:51 Freq: NEEDED Status: Active Protocol: Document 01/19/21 17:05 DLM (Rec: 01/19/21 18:08 [facility] [id number]) PT-Bed Mobility Assessment Supine to Sit Supine to Sit Standby Assistance Sit to Supine Sit to Supine Standby Assistance Scooting Scooting to Edge of Bed Independent Scooting Up and Down in Bed Independent PT-Transfer Assessment Sit to and From Stand Sit to and from Stand Contact Guard Assistance,Use of Upper Extremities Equipment Transfer Assistive Device Gait Belt,Front Wheeled Walker Transfers Transfer Destination Bed,Chair Transfer Technique Stand Step Pivot Transfer Ability Level of Assist Standby Assistance,Use of Upper Extremities Comments Mobility Comments he needs reminders to control his descent with stand to sit, v.c. for hand placement during sit to stand Gait Assessment Gait Gait Assistance Required: Standby Assistance Distance (Feet) 10 Assistive Devices Assistive Device Gait Belt,Front Wheeled Walker Gait Deviations General Gait Pattern Antalgic Factors Limiting Gait Function Factors Limiting Gait Function Decreased Activity Tolerance, Decreased Strength,Limited Range of Motion,Pain Comments Gait Comments Progressed his activity slowly due to light-headedness. He stood edge of bed with fWW 3 times before progressing to gait in his room. Pt left up in recliner with call light close and his visiting. Pt instructed to have staff assist for all mobility. Vital signs seated: BP 105/56, HR 64, O2 sat 96%. Stair Climbing Assessment Comments Stair Climbing Comments plan to stair training tomorrow. PT-Balance Assessment Sitting Balance and Reactions Static Sitting Balance Ability Normal Dynamic Sitting Balance Ability Normal Standing Balance and Reactions Static Standing Balance Ability Good Dynamic Standing Balance Ability Good Device Used FWW M5 PT-IP Objective Assessments Start: 01/19/21 17:51 Freq: NEEDED Status: Active Protocol: Document 01/19/21 17:05 DLM (Rec: 01/19/21 18:08 DL [id number]) Orientation Orientation/Cognition Level of Alertness Alert Orientation Name,Age,Birthday,Month,Date, Year,Day of Week,Place, Situation Language Function Ability No Deficits Noted Safety Awareness Understands Safety Issues Memory Description No Deficits Noted Gross Range of Motion Upper Extremity ROM Assessment Within Functional Limits Lower Extremity ROM Assessment Left Impaired Impairments post-op MELBA precautions Strength Upper Extremity Strength Assessment Within Functional Limits Lower Extremity Strength Assessment Left Impaired Hip not maximally tested due to sx today, moving functionally Knee ext 4/5 Ankle DF 5/5 Coordination Assessment Gross Coordination Gross Coordination WNL Sensation Assessment Sensation Gross Sensation Right LE Impaired,Left LE Impaired Sensation Description Numbness Comments Sensation Comments hx neuropathy in feet Muscle Tone Muscle Tone WNL Yes M6 PT-IP Treatment Start: 01/19/21 17:51 Freq: NEEDED Status: Active Protocol: Document 01/19/21 17:05 DLM (Rec: 01/19/21 18:08 DL [id number]) Physical Therapy Treatment Exercises Exercises Ankle Pumps,Gluteal Sets,Quad Sets Education Education Provided Precautions,Weight Bearing Status,Post-Op Packet,Safety Other Treatments Other Treatment Performed his was present for education, answered their questions M7 PT-IP Assessment and Plan Start: 01/19/21 17:51 Freq: NEEDED Status: Active Protocol: Document 01/19/21 17:05 DLM (Rec: 01/19/21 18:08 DL [id number]) PT Summary Assessment and Plan Potential Rehabilitation Potential Excellent Status of Condition at Evaluation Evolving Summary Impairments Pain,ROM,Strength,Balance, Sensation,Bed Mobility, Transfers,Gait,Activity Tolerance Assessment Summary Nicholas is alert and resting in bed. He is eager to start physical therapy. He had mild light-headedness this visit so mobility was progressed slowly. He was able to progress to short distances of gait in his room with fWW and he stayed up in the recliner for dinner. Will work towards his goal of discharge home tomorrow with his . Will need to closely monitor him for light-headedness and symptoms of A-fib. He reports a hx of increase A-fib when his body is stressed by other medical conditions. His is supportive and able to assist him as needed at home. Goals Bed Mobility Goal Independent Transfer Goal Independent,Front Wheeled Walker Gait Goal Standby Assistance,Front Wheel Walker Gait Distance 150 feet Other Goals Up and down 8 steps with rail and cane with SBA. Days to Meet Goals 2 Frequency of Treatment Frequency Of Treatment Twice a Day Treatment Plan Physical Therapy Treatment Plan Bed Mobility Training,Transfer Training,Gait Training, Therapeutic Exercise,Balance Retraining,Post Op Education, Discharge Planning,Hot or Cold Pack,Neuromuscular Re-ed Recommendations To Nursing Amount of Assist Needed 1 Person Assist Discharge Recommendations PT Discharge Recommendations Home with Assistance Transportation Needs at Discharge Private Vehicle
[2021-01-19] MEDS: FAMOTIDINE 20 MG TABLET PO (18:48)
[2021-01-19] MEDS: DOCUSATE 100 MG CAPSULE PO (20:50)
[2021-01-19] MEDS: LOSARTAN 50 MG TABLET PO (20:50)
[2021-01-19] MEDS: NORTRIPTYLINE 10 MG CAPSULE PO (20:51)
[2021-01-19] MEDS: DABIGATRAN 75 MG CAPSULE 150 MG PO (20:51)
[2021-01-19] MEDS: OXYCODONE IR 5 MG TABLET 10 MG PO (21:20)
[2021-01-20 00:58] VITALS: BP 127/73; PULSE 57; RESP 16; TEMP 36.8; O2SAT 96
[2021-01-20] MEDS: IBUPROFEN 400 MG TABLET PO (01:07)
[2021-01-20] MEDS: CEFAZOLIN 1 GM VIAL 2 GM IV (01:07)
[2021-01-20] MEDS: HYDROCODONE/ACET 5/325 TABLET 1 TAB PO (01:08)
[2021-01-20 03:41] VITALS: BP 133/69; PULSE 54; RESP 16; TEMP 36.3; O2SAT 96
[2021-01-20 05:27] LABS: Hematocrit 33.6 % (41-53); Hemoglobin 11.1 g/dL (13.5-17.5)
--- NOTE | 2021-01-20 08:15 | P.DS_ITS ---
History of Present Illness History of Present Illness Date Patient Seen: 01/20/21 Time Patient Seen: 08:15 Chief complaint: Left hip pain status post left MELBA Narrative: The patient is complaining of mild left hip pain this morning. He denies any fevers, chills, night sweats. No numbness or tingling in bilateral lower extremities. No nausea or vomiting. Overall he is feeling well, and would like to go home today. His main concern is he was having difficulty urinating yesterday and needed to be straight cathed twice. He was able to void this morning and is taking his Rapaflo. Discharge Providers Provider Discharge Date: 01/20/21 Primary care physician: Jj La MD Consults: 01/19/21 06:35 Consult to Anesthesiology Routine Comment: Consulting Provider: Anesthesiologist Reason for consultation: Regional block for post operative pain control 01/19/21 12:33 Consult to Discharge Planning Routine Comment: Consult to Physical Therapy Evaluate & Treat Comment: Physician Instructions: post op MELBA protocol Consult to Respiratory Therapy Evaluate & Treat Comment: Physician Instructions: Evaluate and treat Discharge provider: Jessica Dupont PA-C Summary Hospital Course Discharge Diagnosis: Left hip osteoarthritis Hospital Course: Procedure: Left total hip arthroplasty anterior approach Same procedure as scheduled: Yes Indications: The patient has had progressively worsening left hip pain with radiographic changes consistent with arthritis. Non-operative management has failed and the patient has requested total hip replacement. The risks, benefits and alternatives to surgery were discussed with the patient prior to proceeding. Risks discussed included, but were not limited to, failure to relieve pain, leg length discrepancy, dislocation, stiffness, infection, nerve damage, deep venous thrombosis, pulmonary embolism, stroke, coma, heart attack, permanent paralysis and , as well as the potential need for eventual revision of the prosthetic. Surgeon: Quita Mejia Director Marketing Communications: James Washington Anesthesia Type: General and Spinal Operative Notes Findings: Severe left hip osteoarthritis, adequate stability Closure Type: primary Specimen(s): none sent Prosthetic devices, grafts, tissues, transplants, or devices: Me[employer]ia [employer] anthology size 8 standard offset, R3 60, -3 by 36, neutral poly 60 by 36, one 6.5 screw Estimated Blood Loss (mL): 250 Blood products transfused: none Status at Discharge Cognitive/behavioral status at discharge: oriented Functional status at discharge: uses cane/walker Overall status at discharge: patient is progressing back to baseline Exam Vital Signs (past 8 hours): - 01/20/21 00:58 01/20/21 03:41 Temperature 98.2 F 97.4 F L Pulse Rate 57 L 54 L Respiratory Rate 16 16 Blood Pressure 127/73 133/69 Pulse Oximetry 96 96 Oxygen Delivery Method Room Air Oxygen Flow Rate 0 Narrative Exam Narrative: Pleasant 70-year-old male, resting comfortably in bed, no acute distress. Incision is clean, dry intact. Bilateral lower extremity motor function is within normal limits. Bilateral lower extremities sensation is intact to light touch. Bilateral calves are soft, nontender palpation and both legs are warm and dry. Objective Labs Result Diagrams: 01/20/21 05:04 Labs: Laboratory Results - last 24 hr 01/20/21 05:04 Hgb 11.1 L Hct 33.6 L PFSH Medical History Ascending aorta enlargement Atrial fibrillation (1993) Chicken pox (~1954) Chronic back pain (1964) DDD (degenerative disc disease), lumbar Diverticular disease (~2009) Hairy cell leukemia Hearing loss (~1976) Heartburn Hepatic cyst Hernia HLD (hyperlipidemia) Hypertension (~1985) Kidney stones (2006) Left hip pain Leukemia (~1991) Measles (~1954) Mumps (~1954) Neuropathy Osteoarthritis PAF (paroxysmal atrial fibrillation) Palpitations Plantar warts Recurrent sinusitis (~2008) Shingles (~05/2020) Shoulder pain (2011) Tinnitus (~1979) Vertigo (2010) Surgical History Anesthesia History of colonoscopy (04/04/07) History of lithotripsy (2006) History of lithotripsy (2013) History of lithotripsy (2014) History of total left knee replacement (2018) History of vasectomy Hx of oral surgery Status post hernia repair (1959) Status post hernia repair (2006) Status post knee surgery (1969) Status post knee surgery (1979) Status post wrist surgery (~1979) Family History Brother Age: 69 Leukemia Father Alzheimer's disease Mother Breast cancer Cancer Sister Age: 75 Ovarian cancer Cancer Sister No problems noted. Social History household members: spouse Smoking Status: Former smoker alcohol intake: former Discharge Assessment & Plan Assessment and Plan Assessment: Stable status post left total hip arthroplasty. Plan of Treatment: -continue with Pradaxa for DVT prevention -use Tylenol OTC plus off the as needed for breakthrough pain -DC home today after cleared by PT and patient is voiding appropriately. Discharge Plan Discharge Plan Patient Disposition: Home Discharge orders & Medications Discharge Orders: Discharge (Order); Ordered 01/20/21 Ordered By: Jessica Dupont Prescriptions: New acetaminophen 500 mg capsule 500 mg PO Q4H MDD max 6 tabs/day PRN (Reason: pain) Qty: 90 RF: 0 oxycodone 5 mg Tablet See Rx Instructions .ROUTE .COMPLEX PRN (Reason: Pain, Severe (7-10)) Qty: 4 2 RF: 0 polyethylene glycol 3350 17 gram Powder In Packet 17 g PO DAILY PRN (Reason: Constipation from the narcotic pain medications) Qty: 14 RF: 0 Continued Glucosamine Sulfate (GLUCOSAMINE) 500 mg PO BID Qty: 0 RF: 0 MULTIVITAMIN (#MULTIPLE VITAMINS) 1 cap PO Q DAY Qty: 0 RF: 0 Fish Oil (#FISH OIL) 1,000 iu PO Q DAY Qty: 0 RF: 0 atorvastatin 10 mg tablet 10 mg PO DAILY Qty: 90 RF: 1 silodosin 8 mg capsule See Rx Instructions .ROUTE .COMPLEX Qty: 90 RF: 2 flecainide 50 mg tablet 50 mg PO Q12H RF: 0 Pradaxa 150 mg capsule 150 mg PO BID RF: 0 nortriptyline 10 mg capsule See Rx Instructions .ROUTE .COMPLEX Qty: 90 RF: 0 atenolol 50 mg tablet 50 mg PO DAILY RF: 0 Folic Acid 1 tab PO DAILY RF: 0 losartan 50 mg tablet 50 mg PO SEEINSTR RF: 0 famotidine 20 mg Tablet 20 mg PO DAILY PRN (Reason: Acid Reflux) RF: 0 Discontinued hydrocodone-acetaminophen 5-325 mg tablet 1 tab PO Q6H PRN (Reason: pain) Qty: 10 RF: 0 Follow up/Referrals: Jj La MD [Primary Care Provider] - Quita Mejia MD [Physician] - (10-14 days for postoperative visit) Diet/Activity/Treatments Diet: Diet as Tolerated and Regular Activity: -weightbearing as tolerated with front wheeled walker -maintain anterior hip precautions [id number] Cold/Heat Therapy: -use ice as needed for pain Other treatments: -continue with Pradaxa for DVT prevention Use Tylenol [id number] 500 mg every 4 hours for pain -add Oxy 5 mg 1-2 tablets every 4 hours for moderate to severe pain. Use MiraLax as needed with associated constipation Skin/Wound/Dressing Care Report to your healthcare provider any signs of infection, such as:: chills, fever, night sweats, unusual drainage and unusual redness Dressing: -keep dressing in place. -call office if dressing becomes wet, soiled, saturated -okay to shower after 48 hours from surgery Visit Report/Discharge Packet Instructions: DI for Hip Replacement Stand Alone Forms: Surgery Discharge Discharge Data Primary Care Provider: Jj La Attending Provider: Quita Mejia
[2021-01-20 08:25] VITALS: BP 125/65; PULSE 58; RESP 16; TEMP 36.5; O2SAT 98
[2021-01-20] MEDS: atenoloL 50 MG TABLET PO (08:50)
[2021-01-20] MEDS: ATORVASTATIN 20 MG TABLET 10 MG PO (08:51)
[2021-01-20] MEDS: DABIGATRAN 75 MG CAPSULE 150 MG PO (08:51)
[2021-01-20] MEDS: OXYCODONE IR 5 MG TABLET PO ×2 (08:52→13:00)
[2021-01-20] MEDS: SILODOSIN 4 MG PO (08:52)
[2021-01-20] MEDS: FOLIC ACID 1 MG TABLET PO (08:52)
[2021-01-20] MEDS: LOSARTAN 25 MG TABLET PO (08:52)
[2021-01-20] MEDS: DOCUSATE 100 MG CAPSULE PO (08:52)
[2021-01-20] MEDS: MULTIVITAMIN 1 TABLET 1 TAB PO (08:52)
[2021-01-20] MEDS: FLECAINIDE 100 MG TABLET 50 MG PO (08:53)
[2021-01-20] MEDS: ACETAMINOPHEN 325 MG TABLET 650 MG PO (08:53)
--- NOTE | 2021-01-20 10:45 | PT.IPTN ---
Current Diagnoses Unilateral primary osteoarthritis, left hip (01/19/21) Surgery Performed Operation Date: 01/19/21 07:45 Actual Procedures p Total Hip Arthroplasty/Anterior Approach(Left) - Quita Mejia MD Physical Therapy Treatment Note M2 PT-IP Current Condition Start: 01/19/21 17:51 Freq: NEEDED Status: Active Protocol: Document 01/19/21 17:05 DLM (Rec: 01/19/21 18:08 DLM [id number]) Physical Therapy Current Condition Current Condition Evaluation Date 01/19/21 Treatment Diagnosis left MELBA, anterior, impaired gait Onset Date 01/19/21 Precautions Anterior Hip Precautions No Hip Extension,No Hip External Rotation Other Precautions hx of A-fib Weight Bearing Status Weight Bearing Status Weight Bear as Tolerated M3 PT-IP Subjective Start: 01/19/21 17:51 Freq: NEEDED Status: Active Protocol: Document 01/20/21 10:45 DLM (Rec: 01/20/21 13:43 DLM [id number]) Subjective Physical Therapy Visit Type Type Treatment Note Visit Start Time 10:05 Visit Stop Time 10:45 Total Visit Minutes 40 Number of KILN FIRER Visits 0 Physical Therapy Visit Comments Patient Comments He feels better today, no light-headedness recently, did well getting up with nursing Patient Goals discharge home with Therapy Pain Assessment Pain When Pain Assessed During Mobility Pain Present Pain Present Pain Reported Location l hip Intensity 5 Scale Used Numeric (0 - 10) Description Aching,Tightness,With Movement Pain Behaviors Guarding Pain Management Techniques Apply Cold,Re-positioning, Timing of Activity with Medications M4 PT-IP Mobility and Gait Start: 01/19/21 17:51 Freq: NEEDED Status: Active Protocol: Document 01/20/21 10:45 DLM (Rec: 01/20/21 13:43 DLM [id number]) PT-Bed Mobility Assessment Supine to Sit Supine to Sit Independent Sit to Supine Sit to Supine Independent Scooting Scooting to Edge of Bed Independent Scooting Up and Down in Bed Independent PT-Transfer Assessment Sit to and From Stand Sit to and from Stand Independent,Use of Upper Extremities Equipment Transfer Assistive Device Gait Belt,Front Wheeled Walker Transfers Transfer Destination Bed,Chair,Wheelchair Transfer Technique Stand Step Pivot Transfer Ability Level of Assist Independent,Use of Upper Extremities Comments Mobility Comments v.c to use UE's safely with sit-stand and to control descent into sitting position, pt up to recliner this visit, ice applied to surgical area after activity Gait Assessment Gait Gait Assistance Required: Independent Distance (Feet) 150 Able to Maintain Weight Bearing Status Yes During Gait Assistive Devices Assistive Device Gait Belt,Front Wheeled Walker Gait Deviations General Gait Pattern Antalgic,Decreased Stride Length Factors Limiting Gait Function Factors Limiting Gait Function Decreased Activity Tolerance, Decreased Strength,Limited Range of Motion,Pain Comments Gait Comments encouraged pt to use a step-to pattern during gait leading with surgical LE to avoid lumbo/sacral rotation that occurs when he attempts larger steps, pt has hx of low back pain and needs to protect lumbar area to avoid pain Stair Climbing Assessment Evaluation Level of Assist On Stairs Standby Assistance Devices Stair Climbing Assistive Devices Straight Cane,Right Railing Technique/Endurance Stair Climbing Direction Ascend and Descend Stair Climbing Technique Step to Step Number of Steps Climbed 3 Stair Climbing Set # Repetitions (reps) 2 PT-Balance Assessment Sitting Balance and Reactions Static Sitting Balance Ability Normal Dynamic Sitting Balance Ability Normal Standing Balance and Reactions Static Standing Balance Ability Good Dynamic Standing Balance Ability Good Device Used FWW M5 PT-IP Objective Assessments Start: 01/19/21 17:51 Freq: NEEDED Status: Active Protocol: Document 01/19/21 17:05 DLM (Rec: 01/19/21 18:08 DL [id number]) Orientation Orientation/Cognition Level of Alertness Alert Orientation Name,Age,Birthday,Month,Date, Year,Day of Week,Place, Situation Language Function Ability No Deficits Noted Safety Awareness Understands Safety Issues Memory Description No Deficits Noted Gross Range of Motion Upper Extremity ROM Assessment Within Functional Limits Lower Extremity ROM Assessment Left Impaired Impairments post-op MELAB precautions Strength Upper Extremity Strength Assessment Within Functional Limits Lower Extremity Strength Assessment Left Impaired Hip not maximally tested due to sx today, moving functionally Knee ext 4/5 Ankle DF 5/5 Coordination Assessment Gross Coordination Gross Coordination WNL Sensation Assessment Sensation Gross Sensation Right LE Impaired,Left LE Impaired Sensation Description Numbness Comments Sensation Comments hx neuropathy in feet Muscle Tone Muscle Tone WNL Yes M6 PT-IP Treatment Start: 01/19/21 17:51 Freq: NEEDED Status: Active Protocol: Document 01/20/21 10:45 DLM (Rec: 01/20/21 13:43 DL [id number]) Physical Therapy Treatment Exercises Exercises Ankle Pumps,Gluteal Sets,Quad Sets,Heel Slides Education Education Provided Precautions,Weight Bearing Status,Post-Op Packet,Safety Equipment Issued Equipment Type and Company he has his FWW from home at the hospital Other Treatments Other Treatment Performed his is not present this visit M7 PT-IP Assessment and Plan Start: 01/19/21 17:51 Freq: NEEDED Status: Active Protocol: Document 01/20/21 10:45 DLM (Rec: 01/20/21 13:43 DLM [id number]) PT Summary Assessment and Plan Summary Impairments Pain,ROM,Strength,Balance, Sensation,Bed Mobility, Transfers,Gait,Activity Tolerance Progress Towards Goals Safe For Discharge,Goals Met Assessment Summary Nicholas is progressing well in therapy. He tolerated gait and stair training well. He demonstrates a good understanding of his hip precautions. He needs reminders to slow down during his mobility. He has a supportive to assist him at home as needed. He appears safe to discharge home when medically cleared. No light- headedness with activity. Goals Bed Mobility Goal Independent Transfer Goal Independent,Front Wheeled Walker Gait Goal Standby Assistance,Front Wheel Walker Gait Distance 150 feet Other Goals Up and down 8 steps with rail and cane with SBA. Days to Meet Goals 2 Frequency of Treatment Frequency Of Treatment Discharge Treatment Plan Physical Therapy Treatment Plan Bed Mobility Training,Transfer Training,Gait Training, Therapeutic Exercise,Balance Retraining,Post Op Education, Discharge Planning,Hot or Cold Pack,Neuromuscular Re-ed Recommendations To Nursing Amount of Assist Needed Independent Discharge Recommendations PT Discharge Recommendations Home with Assistance, Outpatient PT Other Discharge Recommendations to assist at home Transportation Needs at Discharge Private Vehicle
--- NOTE | 2021-01-20 12:17 | PC.NURSE ---
Patient has an aquacel dressing to his left anterior hip. Given oxycodone for discomfort and working with physical therapy. He is sitting up in the chair now and will be discharged around 1300. CMS wnl and ppx2.
== END 2021-01-20 13:20 | disposition home or self-care (01) ==
LOC: OR 06:22 → AC 06:23
PROVIDERS: Admitting Provider Orthopaedic Surgery; PCP Family Medicine; Referring Provider Orthopaedic Surgery; Visit Provider Orthopaedic Surgery
PROC: (CPT 27130; principal; 2021-01-19 07:45)
DX: M16.12 Unilateral primary osteoarthritis, left hip (principal); I48.91 Unspecified atrial fibrillation; K21.9 Gastro-esophageal reflux disease without esophagitis
CPT/HCPCS: 27130; 36415; 73502; 76000; 85014; 85018; 97110; 97116; 97162; 97530; C1776; G0378; A9270; C9290; J0690; J1100; J2274; J2405; J2704

== ENCOUNTER → 2021-02-22 07:55 | Outpatient (CLI) | payer OTHER, SELFPAY ==
[2021-01-19 13:14] VITALS: BMI 24.7
--- NOTE | 2021-02-22 07:56 | DI.US.S_ITS ---
PROCEDURE: US ABDOMEN COMPLETE INDICATIONS: HEPATIC CYSTS TECHNIQUE: Real-time scanning was performed of the abdominal and retroperitoneal organs, with image documentation. COMPARISON: [facility], CT, CT KIDNEY URETER BLADDER (KUB), 12/19/2020, 11:05. Reference is made to the CT abdomen dated December 19, 2020. FINDINGS: Liver: A complex hypoechoic lesion is9 seen in right hepatic lobe with septations, measuring 12.4 x 10.9 x 11.3 cm. A 2nd complex, lobulated hypoechoic lesion is seen in the left hepatic lobe, measuring 4.1 x 2.4 x 6.1 cm. Additional hypoechoic lesions are seen, most consistent with simple cysts, measuring up to 2.7 cm . Gallbladder: No gallbladder wall thickening or pericholecystic fluid. No shadowing gallstones. Biliary ducts: Intrahepatic bile ducts are non-dilated. Extrahepatic bile duct caliber measures 3.8 mm. Normal is 6-7 mm or less in diameter, or 10 mm or less post-cholecystectomy. Pancreas: Visualized portions of the pancreas are sonographically normal. Spleen: Spleen is normal in size and homogeneous in echotexture. Kidneys: Kidneys are normal in size and echotexture. Right kidney measures 13 cm long; left kidney measures 14 cm long. No hydronephrosis or nephrolithiasis. No solid masses. A hypoechoic lesion is seen in the left inferior pole, measures 6.8 x 5 x 5.4 cm, compatible with a simple cyst. A hypoechoic lesion is seen in the right inferior pole, measuring 2 x 1.6 by 1.7 cm, compatible with a simple cyst. Aorta: Visualized aorta is normal in caliber at less than 3 cm. Iliacs: Proximal common iliac arteries are normal in caliber at less than 2.5 cm. IVC: Intrahepatic inferior vena cava is patent. Miscellaneous: No free abdominal fluid. IMPRESSION: 1. Complex hypoechoic lesions in the right and left hepatic lobes as detailed above, which may reflect biliary cystadenomas. An infectious process cannot be excluded. Magnetic resonance imaging may be helpful for further characterization. Dictated by: Nik Robertson M.D. on 02/22/2021 at 10:27 Approved by: Nik Robertson M.D. on 02/22/2021 at 10:45
== END ==
PROVIDERS: PCP Family Medicine; Referring Provider Family Medicine; Visit Provider Family Medicine
DX: K76.89 Other specified diseases of liver (principal)
CPT/HCPCS: 76700

== ENCOUNTER → 2021-03-07 15:59 | Outpatient (CLI) | payer OTHER, SELFPAY ==
[2021-01-19 13:14] VITALS: BMI 24.7
--- NOTE | 2021-03-07 16:00 | DI.MRI.S_ITS ---
PROCEDURE: MR ABDOMEN WO/W CON INDICATIONS: multiple changing liver cysts TECHNIQUE: Coronal HASTE, axial 2D FLASH in- and [id number]; axial breath-hold T2 FSE. Dynamic axial VIBE during the administration of contrast; post-contrast coronal VIBE or 2D FLASH with fat saturation from the hepatic dome to the iliac crests. Optional diffusion weighted imaging and ADC may be performed. COMPARISON: M[facility]ed With [facility], CT, KUB - CT (PNL), 07/28/2014, 14:05. , CT, CT KIDNEY URETER BLADDER (KUB), 12/19/2020, 11:05. , US, US ABDOMEN COMPLETE, 02/22/2021, 8:10. FINDINGS: Image quality: Excellent. Lung bases: No basal pleural effusions. Heart size is normal. Solid organs: Within the right hepatic lobe there is a large thin-walled cyst measuring up to 12.3 x 9.4 x 10.3 cm which appears progressively increased in size compared to the prior studies. There are multiple thin internal septations as well as heterogeneous confluent indistinct filling defects. The cyst demonstrates T2 hyperintensity as well as intrinsic T1 hyperintensity suggestive of hemorrhagic blood products. This limits evaluation of internal enhancement following contrast administration. There is enhancement of the thin cyst wall as well as probable enhancement of the septations. No definitive solid masslike internal enhancement is identified but evaluation is limited due to the intrinsic T1 hyperintensity. There is suggestion of restricted diffusion within the solid internal components. Elsewhere, there are numerous smaller cysts demonstrated throughout the liver a few which demonstrate thin internal septations within the left hepatic lobe. No associated suspicious nodular masslike components or internal enhancement. Gallbladder appears within normal limits without gallstones. Biliary system is non dilated. Pancreas is normal in morphology. Spleen is normal in size. There are few small nonspecific cysts within the spleen, measuring up to 0.7 cm. No adrenal nodules. Kidneys demonstrate no hydronephrosis. A few bilateral renal cysts are redemonstrated including a large exophytic left renal cyst measuring up to 6.6 cm. Nodes and vessels: No retroperitoneal or mesenteric adenopathy by size criteria. Aorta and inferior vena cava are normal in size. Bowel and peritoneum: Visualized bowel loops are normal in caliber. No free fluid. Bones and soft tissues: No ventral hernias. Bone marrow is normal in overall signal. IMPRESSION: 1. Large right hepatic cyst demonstrates thin internal septations as well as heterogeneous ill-defined filling defects and internal blood products. No definite solid masslike enhancement demonstrated internally but evaluation is limited by the presence of blood product. The differential includes a hemorrhagic cyst possibly related to sequelae of prior infection versus a biliary cystadenoma. Although no definite solid masslike enhancement is identified, a biliary cystadenocarcinoma cannot be excluded. Dictated by: Rd Parr M.D. on 03/07/2021 at 17:35 Approved by: Rd Parr M.D. on 03/07/2021 at 17:51
== END ==
PROVIDERS: PCP Family Medicine; Referring Provider Family Medicine; Visit Provider Family Medicine
DX: C91.40 Hairy cell leukemia not having achieved remission (principal); K76.89 Other specified diseases of liver
CPT/HCPCS: 74183; A9579

== ENCOUNTER → 2021-05-27 08:49 | Outpatient (CLI) | payer OTHER, SELFPAY ==
[2021-01-19 13:14] VITALS: BMI 24.7
[2021-05-27 11:10] LABS: Alanine Aminotransferase 28 IU/L (<50); Albumin 4.4 g/dL (3.5-5.0); Albumin Globulin Ratio 1.9 (1.0-2.8); Alkaline Phosphatase 74 U/L (38-126); Aspartate Aminotransferase 30 IU/L (17-59); BUN Creatinine Ratio 20.4 (6-22); Bilirubin Total 0.5 mg/dL (0.2-1.3); Blood Urea Nitrogen 21 mg/dL (9-20); Calcium 9.7 mg/dL (8.4-10.2); Carbon Dioxide 27 mmol/L (22-32); Chloride 106 mmol/L (98-107); Cholesterol 138 mg/dL (140-199); Estimated Glomerular Filt Rate > 60.0 mL/min (>60); Globulin 2.3 g/dL (1.7-4.1); Glucose 98 mg/dL (80-110); HDL Cholesterol 48 mg/dL (40-60); HEMOLYSIS < 15 (0-50); LDL Cholesterol Calculated 66 mg/dL (<100); Magnesium 2.2 mg/dL (1.6-2.3); Potassium 4.8 mmol/L (3.4-5.1); Sodium 140 mmol/L (137-145); Total Protein 6.7 g/dL (6.3-8.2); Triglycerides 118 mg/dL (35-150)
== END ==
PROVIDERS: PCP Family Medicine; Referring Provider Specialist; Visit Provider Specialist
DX: I48.0 Paroxysmal atrial fibrillation (principal); E78.00 Pure hypercholesterolemia, unspecified
CPT/HCPCS: 36415; 80053; 80061; 83735

== ENCOUNTER → 2021-08-07 11:21 | Outpatient (CLI) | payer OTHER, SELFPAY ==
[2021-08-07 10:42] VITALS: BMI 24.7
[2021-08-07 13:08] LABS: COVID-19 CEPHEID PCR (VTM/NP) Negative (Negative)
== END ==
PROVIDERS: PCP Family Medicine; Visit Provider Family Medicine Sleep Medicine
DX: Z20.822 Contact with and (suspected) exposure to COVID-19 (principal)
CPT/HCPCS: C9803; U0003; U0005

== ENCOUNTER → 2021-09-12 12:10 | Outpatient (CLI) | payer OTHER, SELFPAY ==
[2021-08-07 10:42] VITALS: BMI 24.7
--- NOTE | 2021-09-12 12:11 | DI.RAD.S_ITS ---
PROCEDURE: XR FOOT RT MIN 3V INDICATIONS: foot pain, lateral right foot TECHNIQUE: 3 views of the foot were acquired. COMPARISON: None. FINDINGS: Bones: No fractures or dislocations. [id number] 1st MTP joint and 1st interphalangeal joint osteoarthritic changes are seen. Mild osteoarthritic changes are noted throughout rest of the right foot. No suspicious bony lesions. Soft tissues: No tibiotalar joint effusion. Achilles tendon appears normal. 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 No acute fracture or dislocation. No suspicious bony lesion. No gross soft tissue abnormality. Dictated by: Fam Pozo M.D. on 09/12/2021 at 12:37 Approved by: Fam Pozo M.D. on 09/12/2021 at 12:38
== END ==
PROVIDERS: PCP Family Medicine; Referring Provider Physician Assistant; Visit Provider Physician Assistant
DX: M19.071 Primary osteoarthritis, right ankle and foot (principal); M79.671 Pain in right foot
CPT/HCPCS: 73630

== ENCOUNTER → 2021-11-30 08:25 | Outpatient (CLI) | payer OTHER, SELFPAY ==
[2021-08-07 10:42] VITALS: BMI 24.7
[2021-11-30 08:53] LABS: Hemoglobin 13.9 g/dL (13.5-17.5); Mean Corpuscular HGB Conc 33.2 % (30-36); Mean Corpuscular Hemoglobin 29.6 PG (26-34); Mean Corpuscular Volume 89.1 fL (80-100); Platelet Count 124 X10^3/uL (150-400); Red Blood Cell Count 4.71 X10^6/uL (4.5-5.9); Red Cell Distribution Width 15.3 % (11.6-14.8)
[2021-11-30 08:55] LABS: Add Manual Diff / Slide Review YES
[2021-11-30 09:48] LABS: Magnesium 2.1 mg/dL (1.6-2.3)
[2021-11-30 10:15] LABS: Neutrophils Absolute Manual 3300 /uL (3000-5900); Total Cells Counted 100
[2021-11-30 10:16] LABS: RBC Morphology Normal Morphology
[2021-11-30 10:58] LABS: Alanine Aminotransferase 25 IU/L (<50); Albumin Globulin Ratio 1.8 (1.0-2.8); Alkaline Phosphatase 81 U/L (38-126); Aspartate Aminotransferase 34 IU/L (17-59); BUN Creatinine Ratio 17.8 (6-22); Bilirubin Total 0.5 mg/dL (0.2-1.3); Blood Urea Nitrogen 16 mg/dL (9-20); Calcium 8.9 mg/dL (8.4-10.2); Carbon Dioxide 25 mmol/L (22-32); Chloride 107 mmol/L (98-107); Estimated Glomerular Filt Rate > 60 mL/min (>60); Globulin 2.2 g/dL (1.7-4.1); Glucose 86 mg/dL (80-110); HEMOLYSIS 15 (0-50); Potassium 4.6 mmol/L (3.4-5.1); Sodium 140 mmol/L (137-145); Total Protein 6.2 g/dL (6.3-8.2)
[2021-12-02 11:35] LABS: Cholesterol, Total 122 mg/dL (100-199); HDL-Cholesterol 43 mg/dL (>39); HDL-Particle (Total) 30.9 umol/L (>=30.5); LDL Particle 636 nmol/L (<1000); LDL Size 20.5 nm (>20.5); LDL-Cholsterol 60 mg/dL (0-99); LP-IR Score 40 (<=45); Small LDL- Particle 353 nmol/L (<=527); Triglycerides 98 mg/dL (0-149)
== END ==
PROVIDERS: PCP Family Medicine; Referring Provider Specialist; Visit Provider Specialist
DX: I48.0 Paroxysmal atrial fibrillation (principal); Z79.899 Other long term (current) drug therapy; Z51.81 Encounter for therapeutic drug level monitoring; E78.00 Pure hypercholesterolemia, unspecified; C91.40 Hairy cell leukemia not having achieved remission; M79.671 Pain in right foot
CPT/HCPCS: 36415; 80053; 80061; 83704; 83735; 85007; 85025

== ENCOUNTER → 2021-12-06 15:06 | Outpatient (CLI) | payer OTHER, SELFPAY ==
[2021-08-07 10:42] VITALS: BMI 24.7
--- NOTE | 2021-12-06 15:07 | DI.ECHO.S_ITS ---
[place] +---------+ Hospital +---------+ : : [address] [place] : : : : [id number] : : : : Phone: [phone]+ Echocardiogram Report + + :Name: GERONIMO SOLO Study Date: 12/06/2021 Height: 69 in : :[facility] ReadingLocation: Weight: 165 lb : : Gender: Male BSA: 1.9 m2 : :: 1950 Age: 71 yrs BP: 128/85 mmHg: :Reason For Study: ATRIAL FIBRILLATION : :Ordering Physician: LINDA, : :MANFRED Performed By: Emily Partida : :Referring: MANFRED MCKEON : + + Interpretation Summary Left ventricular systolic function is now low normal with an estimated ejection fraction of 50 to 55% without any focal wall motion abnormality although with a mild dyssynchronous contraction pattern. Contractility appears to be less dynamic compared to the previous study. The left ventricle is at the upper limits of normal in size with an end-diastolic volume of 122 mL compared to 102 mL previously. Diastolic function is likely normal with probable normal filling pressures and likely unchanged since the previous exam. The right ventricle is mildly enlarged with normal systolic function and appears slightly larger compared to the previous study but is otherwise unchanged. Right ventricular systolic pressure cannot be estimated but CVP is likely around 3 mmHg. Both atria are normal in size and measure slightly smaller compared to the previous study. There is mild to moderate mitral regurgitation, mild tricuspid regurgitation, and moderate aortic valve regurgitation, all of which appear to be mildly more prominent compared to the previous study. There is mild aortic root enlargement with moderate enlargement of the ascending aorta, measuring 4.3 cm compared to 4.2 cm previously. The patient was in sinus bradycardia at 50 to 60 bpm, similar to the previous exam. Procedure: A two-dimensional transthoracic echocardiogram with color flow and Doppler was performed. The study quality was technically adequate. Comparison is made with the echocardiogram of 03/11/2020. The patient was in sinus bradycardia with heart rates between 50-61 bpm during the exam. Left Ventricle: Left ventricular size is at the upper limits of normal. The estimated left ventricular end diastolic volume is 122 mL compared to the previous 102 ml. Left ventricular wall thickness is at the upper limits of normal. Left ventricular systolic function is low normal. The ejection fraction is estimated to be 50-55%. There is a mild dyssynchronous contraction pattern, consistent with a conduction abnormality. There are no focal wall motion abnormalities. This is less dynamic compared to the previous study. Diastolic parameters suggest probable normal left ventricular diastolic function and normal filling pressures. This is unchanged compared to the previous study. Right Ventricle: The right ventricle is mildly dilated. This is slightly larger compared to the previous study. The right ventricular systolic function is normal. This is unchanged compared to the previous study. Atria: Both atria are normal in size. This is slightly smaller compared to the previous study. The interatrial septum grossly appears intact with no obvious evidence for an atrial septal defect. There is no Doppler evidence for an interatrial shunt. Mitral Valve: There is mild mitral annular calcification. The mitral valve leaflets appear borderline thickened, but open well. There is mild to moderate mitral regurgitation. This is more prominent compared to the previous study. Aortic Valve: The aortic valve is trileaflet. The aortic valve is slightly calcified. The aortic valve opens well. There is moderate aortic regurgitation. This is more prominent compared to the previous study. Tricuspid Valve: The tricuspid valve is normal in structure and function. There is mild tricuspid regurgitation. This is more prominent compared to the previous study. Pulmonary artery pressures cannot be estimated because of the lack of a measurable TR jet velocity but the IVC suggests a CVP of around 3 mmHg. Pulmonic Valve: The pulmonic valve leaflets are thin and pliable; valve motion is normal. There is no pulmonic valvular regurgitation. Great Vessels: The aortic root is borderline dilated. The ascending aorta is moderately enlarged. This is unchanged compared to the previous study. The IVC is of normal diameter and collapses greater than 50% with a sniff. This suggests a low right atrial pressure of 3 mm Hg. Pericardium/ Pleura There is no pericardial effusion. There is no pleural effusion. MMode/2D Measurements & Calculations LVIDd: 5.0 cm LVOT diam: 2.3 cm LVIDs: 3.4 cm Ao root diam: 3.4 cm FS: 31.4 % asc Aorta Diam: 4.3 cm EPSS: 0.84 cm Ao Arch Diam (Prox Trans): 2.8 cm IVSd: 0.89 cm LVPWd: 1.1 cm LV verduzco. diameter/BSA (cm/m^2): 2.6 LV sys. diameter/BSA (cm/m^2): 1.8 LA A2 area: 22.0 cm2 RA long axis: 5.5 cm LA A4 area: 14.6 cm2 RA area: 15.9 cm2 LA length (vol): 4.9 cm RA vol: 38.7 ml LA vol: 56.3 ml RA : 20.3 ml/m2 LA vol index: 29.6 ml/m2 IVC diam: 1.8 cm RVD1 (basal): 4.8 cm TAPSE: 2.3 cm Doppler Measurements & Calculations Ao V2 max: 112.3 cm/sec LVOT Max Alvin: 96.6 cm/sec Ao V2 mean: 74.9 cm/sec LV V1 max P.7 mmHg Ao max P.0 mmHg LV V1 VTI: 21.8 cm Ao mean P.5 mmHg AARON(I,D): 4.1 cm2 Ao V2 VTI: 23.1 cm AARON(V,D): 3.7 cm2 sev ratio: 0.94 AARON indexed to BSA (cm^2/m^2): 2.1 MV E max alvin: 43.5 cm/sec TR max alvin: 199.7 cm/sec MV A max alvin: 54.1 cm/sec TR max P.0 mmHg MV E/A: 0.80 PA V2 max: 154.6 cm/sec Med Peak E' Alvin: 6.8 cm/sec PA V2 mean: 95.1 cm/sec E/E' med: 6.4 PA mean P.1 mmHg Lat Peak E' Alvin: 7.3 cm/sec PA pr(Accel): 34.5 mmHg E/E' lat: 5.9 E/e' average: 6.2 MV dec time: 0.35 sec SV(LVOT): 93.9 ml Reading Physician:05:21 PM
== END ==
PROVIDERS: PCP Family Medicine; Referring Provider Specialist; Visit Provider Specialist
DX: I48.0 Paroxysmal atrial fibrillation (principal); I08.3 Combined rheumatic disorders of mitral, aortic and tricuspid valves; I77.89 Other specified disorders of arteries and arterioles
CPT/HCPCS: 93306

== ENCOUNTER → 2022-01-11 11:43 | Outpatient (CLI) | payer OTHER, SELFPAY ==
[2021-08-07 10:42] VITALS: BMI 24.7
[2022-01-11 13:58] LABS: Prostate Specific Antigen Scrn 2.75 ng/mL (0.1-4.0)
== END ==
PROVIDERS: PCP Family Medicine; Referring Provider Family Medicine; Visit Provider Family Medicine
DX: Z12.5 Encounter for screening for malignant neoplasm of prostate (principal)
CPT/HCPCS: 36415; G0103

== ENCOUNTER → 2022-01-16 09:13 | Outpatient (CLI) | payer OTHER, SELFPAY ==
[2021-08-07 10:42] VITALS: BMI 24.7
--- NOTE | 2022-01-16 09:15 | DI.RAD.S_ITS ---
PROCEDURE: XR SHOULDER LT MIN 2V INDICATIONS: left shoulder pain TECHNIQUE: 3 views of the shoulder were acquired. COMPARISON: None. FINDINGS: Bones: No fractures or dislocations. Moderate acromioclavicular joint osteoarthritic changes are seen with joint space narrowing, subchondral sclerosis and prominent marginal osteophyte formation. Mild to moderate glenohumeral joint osteoarthritic changes also seen with joint space narrowing and subchondral sclerosis. No suspicious bony lesions. Visualized ribs appear intact. Soft tissues: No suspicious soft tissue calcifications. IMPRESSION: [id number] left shoulder joint osteoarthritis as above. No acute fracture or dislocation. No gross soft tissue abnormalities. Dictated by: Fam Pozo M.D. on 01/16/2022 at 10:44 Approved by: Fam Pozo M.D. on 01/16/2022 at 10:44
== END ==
PROVIDERS: PCP Family Medicine; Referring Provider Family Medicine; Visit Provider Family Medicine
DX: M25.512 Pain in left shoulder; G89.29 Other chronic pain; S43.422A Sprain of left rotator cuff capsule, initial encounter; M19.012 Primary osteoarthritis, left shoulder; X58.XXXA Exposure to other specified factors, initial encounter
CPT/HCPCS: 73030

== ENCOUNTER → 2022-08-01 08:36 | Outpatient (CLI) | payer OTHER, SELFPAY ==
[2021-08-07 10:42] VITALS: BMI 24.7
[2022-08-01 10:18] LABS: Alanine Aminotransferase 30 IU/L (<50); Albumin 3.9 g/dL (3.5-5.0); Albumin Globulin Ratio 1.6 (1.0-2.8); Alkaline Phosphatase 60 U/L (38-126); Aspartate Aminotransferase 30 IU/L (17-59); BUN Creatinine Ratio 20.8 (6-22); Bilirubin Total 0.5 mg/dL (0.2-1.3); Blood Urea Nitrogen 20 mg/dL (9-20); Calcium 9.2 mg/dL (8.4-10.2); Carbon Dioxide 29 mmol/L (22-32); Chloride 106 mmol/L (98-107); Cholesterol 130 mg/dL (140-199); Estimated Glomerular Filt Rate > 60 mL/min (>60); Globulin 2.4 g/dL (1.7-4.1); Glucose 90 mg/dL (80-110); HDL Cholesterol 48 mg/dL (40-60); HEMOLYSIS < 15 (0-50); LDL Cholesterol Calculated 61 mg/dL (<100); Potassium 4.6 mmol/L (3.4-5.1); Sodium 142 mmol/L (137-145); Total Protein 6.3 g/dL (6.3-8.2); Triglycerides 105 mg/dL (35-150)
== END ==
PROVIDERS: PCP Family Medicine; Referring Provider Physician Assistant Medical; Visit Provider Specialist
DX: I48.0 Paroxysmal atrial fibrillation (principal); E78.00 Pure hypercholesterolemia, unspecified
CPT/HCPCS: 36415; 80053; 80061; 80299; 83735

== ENCOUNTER 2023-02-14 08:24 | Day surgery (SDC) | payer OTHER, SELFPAY ==
[2021-08-07 10:42] VITALS: BMI 24.7
== END 2023-02-14 08:25 | disposition home or self-care (01) ==
PROVIDERS: PCP Family Medicine; Referring Provider Surgery; Visit Provider Surgery
DX: Z12.11 Encounter for screening for malignant neoplasm of colon (principal); Z53.9 Procedure and treatment not carried out, unspecified reason

== ENCOUNTER → 2023-04-25 09:09 | Outpatient (CLI) | payer OTHER, SELFPAY ==
[2021-08-07 10:42] VITALS: BMI 24.7
[2023-04-25 09:49] LABS: Add Manual Diff / Slide Review NO; Basophils Absolute Auto 0 /uL (0-100); Basophils Percent Auto 0.7 % (0-2); Eosinophils Absolute Auto 200 /uL (0-450); Eosinophils Percent Auto 4.1 % (2-4); Hematocrit 44.7 % (41-53); Hemoglobin 15.2 g/dL (13.5-17.5); Lymphocytes Absolute Auto 1000 /uL (1100-4500); Lymphocytes Percent Auto 22.5 % (25-40); Mean Corpuscular HGB Conc 33.9 % (30-36); Mean Corpuscular Hemoglobin 31.3 PG (26-34); Mean Corpuscular Volume 92.2 fL (80-100); Monocytes Absolute Auto 500 /uL (0-900); Monocytes Percent Auto 10.3 % (3-14); Neutrophils Absolute Auto 2900 /uL (1500-7000); Neutrophils Percent Auto 62.4 % (50-75); Platelet Count 225 X10^3/uL (150-400); Red Blood Cell Count 4.85 X10^6/uL (4.5-5.9); Red Cell Distribution Width 13.4 % (11.6-14.8); White Blood Cell Count 4.6 X10^3/uL (4.5-11.0)
[2023-04-25 10:22] LABS: Magnesium 2.3 mg/dL (1.6-2.3)
[2023-04-25 15:11] LABS: Alanine Aminotransferase 31 IU/L (<50); Albumin Globulin Ratio 1.6 (1.0-2.8); Alkaline Phosphatase 60 U/L (38-126); BUN Creatinine Ratio 22.5 (6-22); Bilirubin Total 0.7 mg/dL (0.2-1.3); Blood Urea Nitrogen 23 mg/dL (9-20); Calcium 9.4 mg/dL (8.4-10.2); Carbon Dioxide 25 mmol/L (22-32); Chloride 106 mmol/L (98-107); Cholesterol 121 mg/dL (140-199); Estimated Glomerular Filt Rate > 60 mL/min (>60); Globulin 2.5 g/dL (1.7-4.1); Glucose 97 mg/dL (80-110); HDL Cholesterol 30 mg/dL (40-60); HEMOLYSIS < 15 (0-50); LDL Cholesterol Calculated 62 mg/dL (<100); Potassium 5.1 mmol/L (3.4-5.1); Sodium 139 mmol/L (137-145); Total Protein 6.5 g/dL (6.3-8.2); Triglycerides 143 mg/dL (35-150)
[2023-04-25 15:41] LABS: Prostate Specific Antigen Scrn 4.39 ng/mL (0.1-4.0)
[2023-04-26 15:11] LABS: Aspartate Aminotransferase 37 IU/L (17-59)
== END ==
PROVIDERS: PCP Family Medicine; Referring Provider Specialist; Visit Provider Specialist
DX: Z12.5 Encounter for screening for malignant neoplasm of prostate (principal); I48.0 Paroxysmal atrial fibrillation; E78.00 Pure hypercholesterolemia, unspecified; N40.0 Benign prostatic hyperplasia without lower urinary tract symptoms; I10 Essential (primary) hypertension; E78.5 Hyperlipidemia, unspecified; C91.40 Hairy cell leukemia not having achieved remission
CPT/HCPCS: 36415; 80053; 80061; 83735; 85025; G0103

== ENCOUNTER → 2023-06-04 08:51 | Outpatient (CLI) | payer OTHER, SELFPAY ==
[2021-08-07 10:42] VITALS: BMI 24.7
== END ==
PROVIDERS: PCP Family Medicine; Visit Provider Physician Assistant
DX: R19.7 Diarrhea, unspecified (principal)

== ENCOUNTER → 2023-06-04 11:05 | Outpatient (CLI) | payer OTHER, SELFPAY ==
[2021-08-07 10:42] VITALS: BMI 24.7
[2023-06-06 09:36] LABS: Fecal Immunochemical Test Positive (Negative)
== END ==
PROVIDERS: PCP Family Medicine; Referring Provider Physician Assistant; Visit Provider Physician Assistant
DX: R97.20 Elevated prostate specific antigen [PSA] (principal); R19.7 Diarrhea, unspecified
CPT/HCPCS: 82274

== ENCOUNTER 2023-06-28 16:11 | Day surgery (SDC) | payer OTHER, SELFPAY ==
[2021-08-07 10:42] VITALS: BMI 24.7
--- NOTE | 2023-06-28 | PATH_ITS ---
[facility] Accession Number: [id number] No. of containers..01 Tissue . 01 Material submitted: . rectum - RECTAL POLYP . 01 Diagnosis: RECTAL POLYP: Tubular adenoma. STO 07/03/2023 1227 Local . 01 Electronically signed: . Rd Angulo MD, Pathologist NPI- [id number] . 01 Gross description: . RECTAL POLYP: Received in formalin is 1 fragment(s) of vickers, soft tissue measuring 0.7 x 0.6 x 0.4 cm submitted entirely in 1 cassette(s) /CELY 07/03/2023 1227 Local . 01 Pathologist provided ICD-10: D12.8 . 01 CPT . 499841 Specimen Comment: A courtesy copy of this report has been sent to [phone] Performed at: 01 [facility] [address] [place] [id number] Angulo MD Phone: [phone]
[2023-06-28 16:29] VITALS: BP 147/90; PULSE 74; RESP 16; TEMP 36.1; O2SAT 95
[2023-06-28] MEDS: LACTATED RINGERS 1,000 ML 42 ML IV (16:42)
--- NOTE | 2023-06-28 16:56 | PM.HP.1 ---
History of Present Illness History of Present Illness Date Patient Seen: 06/28/23 Time Patient Seen: 16:56 Chief complaint: Colonoscopy Narrative: 72-year-old man on chronic anticoagulation here for a diagnostic colonoscopy following a positive fecal immunochemical test. Last colonoscopy approximately 10 years ago normal. No abdominal concerns today. [facility], [facility] Medical History Hepatic cyst Palpitations Ascending aorta enlargement DDD (degenerative disc disease), lumbar Shingles (~05/2020) Neuropathy Osteoarthritis Hernia Heartburn PAF (paroxysmal atrial fibrillation) HLD (hyperlipidemia) Hairy cell leukemia Left hip pain Shoulder pain (2011) Chronic back pain (1964) Plantar warts Mumps (~1954) Measles (~1954) Chicken pox (~1954) Vertigo (2010) Tinnitus (~1979) Recurrent sinusitis (~2008) Hearing loss (~1976) Kidney stones (2006) Diverticular disease (~2009) Hypertension (~1985) Atrial fibrillation (1993) Leukemia (~1991) Surgical History History of vasectomy Hx of oral surgery History of total left knee replacement (2018) History of colonoscopy (04/04/07) Anesthesia Status post wrist surgery (~1979) History of lithotripsy (2014) History of lithotripsy (2013) History of lithotripsy (2006) Status post hernia repair (2006) Status post hernia repair (1959) Status post knee surgery (1979) Status post knee surgery (1969) Family History Brother Age: 71 Leukemia Father Alzheimer's disease Mother Breast cancer Cancer Sister Age: 77 Ovarian cancer Cancer Sister No problems noted. Social History household members: spouse Smoking Status: Former smoker alcohol intake: former Meds Home Medications and Allergies Home Medications Medication Instructions Recorded Confirmed Type Fish Oil (#FISH OIL) 1,000 iu PO Q DAY ##0 01/28/12 06/28/23 History MULTIVITAMIN (#MULTIPLE VITAMINS) 1 cap PO Q DAY ##0 01/28/12 06/28/23 History atenolol 50 mg tablet 50 mg PO DAILY 06/17/20 06/28/23 History dabigatran etexilate 150 mg 150 mg PO BID 09/14/20 06/28/23 History capsule (Pradaxa) flecainide 50 mg tablet 50 mg PO Q12H 09/14/20 06/28/23 History losartan 50 mg tablet 50 mg PO SEEINSTR 01/10/21 06/28/23 History atorvastatin 10 mg tablet 10 mg PO DAILY #90 tabs 06/06/23 06/28/23 Rx nortriptyline 10 mg capsule See Rx Instructions .Route 06/06/23 06/28/23 Rx .COMPLEX #90 caps silodosin 8 mg capsule See Rx Instructions .Route 06/06/23 06/28/23 Rx .COMPLEX #90 caps Allergies Allergy/AdvReac Type Severity Reaction Status Date / Time allopurinol [ALLOPURINOL] Allergy Severe Rash, Verified 06/06/23 11:01 light fever ofloxacin [From Floxin] Allergy Intermediate Rash Verified 06/06/23 11:01 Sulfa (Sulfonamide Allergy Intermediate HIVES, Verified 06/06/23 11:01 Antibiotics) FEVER ciprofloxacin Allergy Mild RASH Verified 06/06/23 11:01 Exam Vital Signs (past 8 hours): - 06/28/23 16:29 Temperature 97 F L Pulse Rate 74 Respiratory Rate 16 Blood Pressure 147/90 H Pulse Oximetry 95 Oxygen Delivery Method Room Air Oxygen Delivery Method Room Air Narrative Exam Narrative: General adult man alert oriented no acute distress Chest nonlabored respiration Extremities warm well perfused Assessment & Plan Assessment and plan (1) Positive FIT (fecal immunochemical test): Status: Acute Assessment & Plan narrative: 72-year-old man on chronic anticoagulation with positive fecal immunochemical test here for diagnostic colonoscopy. Technical details were discussed. Risks, benefits, alternatives explained. Risks including but not limited to myocardial infarction, aspiration, bleeding, pain, missed lesion, incomplete examination, need for further radiographic studies, colonic perforation, and need for major abdominal surgery were discussed. All questions were answered to their satisfaction, and they are in agreement with this plan.
[2023-06-28 17:26] VITALS: BP 90/60; PULSE 66; RESP 20; TEMP 36.1; O2SAT 93
--- NOTE | 2023-06-28 17:27 | P.OP.COLON_ITS ---
Operative Date/Time/Diagnoses Date of procedure: 06/28/23 Time of procedure: 17:27 Pre-op diagnosis: Positive fecal immunochemical test Post-op diagnosis: other (Rectal polyp) Procedure & Clinicians Study performed: Colonoscopy with polypectomy Same procedure as scheduled: Yes Indications: 72-year-old man on anticoagulation with a positive fecal immunochemical test here for diagnostic colonoscopy. Surgeon: Cyrus Arthur Procedure Notes Procedure in detail: The history and physical was performed/updated and the patient is ASA class is 2. The procedure was discussed in detail with the patient. Potential risks complications including infection, bleeding, missed diagnosis, perforation, need for surgery, and were explained. Their questions were answered and informed consent was obtained. Patient was brought to the procedure room and placed standard monitoring equipment. The patient's vital signs were monitored continuously throughout the entire procedure. Prior to starting time-out was performed. The patient was placed in the left lateral recumbent position. Procedural sedation was administered by anesthesia. Examination began with a thorough inspection of the perianal area there was no evidence of fissures, fistulae, external hemorrhoids or cutaneous malignancy. The colonoscopy scope was then placed into the anal canal and was advanced to the cecum, which was identified by the ileocecal valve, the appendiceal orifice and the confluence of the taenia. The scope was then slowly withdrawn examining colon thoroughly in all directions, irrigating it of any residual stool. The scope was retroflexed within the rectum The patient tolerated the procedure well. They will be discharged once criteria are met. The prep was of good/excellent quality. The withdrawl time was 7 minutes. FINDINGS * Rectal polyp 5 mm removed with hot snare. * Diverticulosis * Internal hemorrhoids Specimen(s): other (Rectal polyp) Impression: Colonic polyp x1 Post-procedure Recommendations: High fiber diet Plan for aftercare: Follow up has been an on pathology findings Disposition: same day surgery
[2023-06-28 17:31] VITALS: BP 93/63; PULSE 63; RESP 18; O2SAT 92
[2023-06-28 17:35] VITALS: BP 103/66; PULSE 59; RESP 16; O2SAT 93
[2023-06-28 17:40] VITALS: BP 108/69; PULSE 64; RESP 16; O2SAT 94
== END 2023-06-28 17:57 | disposition home or self-care (01) ==
PROVIDERS: Family Provider Family Medicine; PCP Family Medicine; Referring Provider Surgery; Visit Provider Surgery
PROC: 0DJD8ZZ Inspection of Lower Intestinal Tract, Via Natural or Artificial Opening Endoscopic (ICD-10-PCS; CPT 45378; principal; 2023-06-28 15:45)
DX: Z12.11 Encounter for screening for malignant neoplasm of colon (principal); R19.5 Other fecal abnormalities; K57.30 Diverticulosis of large intestine without perforation or abscess without bleeding; K64.8 Other hemorrhoids; D12.8 Benign neoplasm of rectum
CPT/HCPCS: 45385

== ENCOUNTER → 2023-07-22 12:03 | Outpatient (CLI) | payer OTHER, SELFPAY ==
[2021-08-07 10:42] VITALS: BMI 24.7
[2023-07-22 13:55] LABS: Prostate Specific Antigen Scrn 4.28 ng/mL (0.1-4.0)
== END ==
PROVIDERS: Family Provider Family Medicine; PCP Family Medicine; Referring Provider Family Medicine; Visit Provider Family Medicine
DX: Z12.5 Encounter for screening for malignant neoplasm of prostate (principal); R97.20 Elevated prostate specific antigen [PSA]
CPT/HCPCS: 36415; G0103

== ENCOUNTER 2023-10-30 09:45 | Outpatient (RCR) | payer OTHER, SELFPAY ==
[2021-08-07 10:42] VITALS: BMI 24.7
--- NOTE | 2023-06-13 14:22 | PT.OIE ---
Current Diagnoses Low back pain, unspecified (06/13/23) Difficulty in walking, not elsewhere classified (06/13/23) Other abnormalities of gait and mobility (06/13/23) Abnormal posture (06/13/23) Weakness (06/13/23) Past Medical History (Last Reviewed 09/12/21 @ 19:58 by Evangelina Gleason PA-C) Ascending aorta enlargement Atrial fibrillation (1993) Chicken pox (~1954) Chronic back pain (1964) DDD (degenerative disc disease), lumbar Diverticular disease (~2009) Hairy cell leukemia Hearing loss (~1976) Heartburn Hepatic cyst Hernia HLD (hyperlipidemia) Hypertension (~1985) Kidney stones (2006) Left hip pain Leukemia (~1991) Measles (~1954) Mumps (~1954) Neuropathy Osteoarthritis PAF (paroxysmal atrial fibrillation) Palpitations Plantar warts Recurrent sinusitis (~2008) Shingles (~05/2020) Shoulder pain (2011) Tinnitus (~1979) Vertigo (2010) Past Surgical History (Last Reviewed 09/12/21 @ 19:58 by Evangelina Gleason PA-C) Anesthesia History of colonoscopy (04/04/07) History of lithotripsy (2006) History of lithotripsy (2013) History of lithotripsy (2014) History of total left knee replacement (2018) History of vasectomy Hx of oral surgery Status post hernia repair (1959) Status post hernia repair (2006) Status post knee surgery (1969) Status post knee surgery (1979) Status post wrist surgery (~1979) Visit Care Team Role Provider Type Jj La MD Attending Provider Physician Family Provider Primary Care Provider Referring Provider Specialty: [facility] Practice Address: [address] [place] [address], [facility] Email: [email or web address] Physical Therapy Initial Evaluation PT-OP-A Visit Information Start: 06/12/23 17:14 Freq: Status: Active Protocol: Document 06/13/23 09:27 [facility] (Rec: 06/13/23 11:19 [facility] [id number]) Out-Patient Physical Therapy Visit Information Visit Information Visit Type Initial Evaluation Visit Note 05/01 Visit Start Time 10:36 Visit Stop Time 11:19 Visit Number 1 Number of PRESALES ENGINEER Visits 0 PT-OP-B Current Condition Start: 06/12/23 17:14 Freq: Status: Active Protocol: Document 06/13/23 09:27 [facility] (Rec: 06/13/23 11:19 [facility] [id number]) Current Condition History of Current Condition Current Complaints back pain & dec balance History of Current Condition Pt reports he has had really good balance all his life and don't trust it anymore. he still occ climb ladders and occ is worried about it and gets slow and careful. He does have DDD in bottom 5 vertebrae and mult degenerative changes. His back is stiff a lot. He has done PT in the past and at this point has given up on finding a cure. Walks 3 miles 5 days a week and tries to stay active . Uses an inversion table to prn to avoid sciatica. His sense is his back affects his balance. Doing the exercises over several months, didn't help but back gets tired from his PT exercises. When back gets tired, he starts tog et pain radiating to his buttocks and into back of leg. does report neuropathy. Last chemo was 5 years ago and has had leukemia dx for 31 years. In remission right now and is still regularly checked. hx of B knee replacements. Cyst on liver and gallbadder removed along w/part of liver and gallbladder. Pt reports he feels like his balance started to decline about 5 years w/ last 2-3 years more pronounced . SItting up in a straight backed chair is painful. Drive 10-15 min and has trouble getting straightened up. 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 He used to use a lot of asprin and ibuprofen in the past but cannot use it anymore. Dizziness sometimes when standing to get of chair. Hx L hip replacement. Pt has hx of L MELBA. Prior Treatments and Tests 2018 MRI: IMPRESSION: 1. Multilevel degenerative disc and facet disease, as well ligamentum flavum hypertrophy. 2. Grade I isthmic spondylolisthesis at L5-S1. 3. Severe bilateral L5-S1 foraminal stenosis, with associated flattening deformity of the L5 nerve roots in the neural foramina. Recommend correlation with clinical symptoms to ascertain relevance of this finding. 4. Mild canal and mild to moderate foraminal stenosis at the remaining levels. Treatment Goals Patient/Caregiver Goals Improve balance, find a way to cope better w/back, be able to yard work w/less repercussion; be able drive longer distances PT-OP-C Subjective Start: 06/12/23 17:14 Freq: Status: Active Protocol: Document 06/13/23 09:27 [facility] (Rec: 06/13/23 11:19 [facility] [id number]) Patient Questionnaires ABC- Activity Specific Balance Confidence Scale ABC Score 88.4 Other Questionnaire Name and Score Falls efficacy scale: OP-PT Pain Assessment Location back pain Pain Location Details LBP, buttocks and post thigh pain Frequency Intermittent Pain Aggravating Factors Sitting,Walking Other Pain Aggravating Factors doing PT exercises, Other Pain Alleviating Factors inversion table,tylenol, CBC, biofreeze PT-OP-D Balance Start: 06/12/23 17:14 Freq: Status: Active Protocol: Document 06/13/23 09:27 [facility] (Rec: 06/13/23 11:19 [facility] [id number]) Balance Tests Single Limb Standing Single Limb- Right 5 sec w/ lat lean over leg Single Limb- Left >30 sec w/hip ER PT-OP-E Functional Tests Start: 06/12/23 17:14 Freq: Status: Active Protocol: Document 06/13/23 09:27 [facility] (Rec: 06/13/23 11:19 [facility] [id number]) Functional Tests 30 Second Sit to Stand Test Score 9 Comments back pain and R knee pain Five Times Sit to Stand Test Score 16 sec Comments back pain PT-OP-F Manual Assessment Start: 06/12/23 17:14 Freq: Status: Active Protocol: Document 06/13/23 09:27 [facility] (Rec: 06/13/23 11:19 [facility] [id number]) Manual Assessments Joint Mobility Assessment Joint Mobility Assessment L iliac crest higher; equal greater trochanter B PT-OP-G Mobility & Gait Start: 06/12/23 17:14 Freq: Status: Active Protocol: Document 06/13/23 09:27 [facility] (Rec: 06/13/23 11:19 [facility] [id number]) OP Gait Assessment Comments 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 lat 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 w /wt acceptance on RLE; dec push off B PT-OP-J Posture/Palpation/Skin Start: 06/12/23 17:14 Freq: Status: Active Protocol: Document 06/13/23 09:27 [facility] (Rec: 06/13/23 11:19 [facility] [id number]) Posture Evaluation Tamara Postural Classification System Tamara Postural Classifications Posterior/Anterior Vertebral Compression Test 1 Lumbar Protective Mechanism Left AP 0 Lumbar Protective Mechanism Right AP 2 Lumbar Protective Mechanism Left PA 3 Comments Posture Comments L pelvic shear, L rot, L toe out, L shoulder higher, dec lordosis, inc upper tspine kyphosis PT-OP-K Range of Motion Start: 06/12/23 17:14 Freq: Status: Active Protocol: Document 06/13/23 09:27 [facility] (Rec: 06/13/23 11:19 [facility] [id number]) Lumbar Spine Range of Motion Lumbar Spine Active Percentage Flexion 50 Extension 20 Rotation Left 50 Rotation Right 75 Lateral Flexion Left 75 Lateral Flexion Right 50 ROM Limitations Pain PT-OP-L Special Tests Start: 06/12/23 17:14 Freq: Status: Active Protocol: Document 06/13/23 09:27 [facility] (Rec: 06/13/23 11:19 [facility] [id number]) Special Tests Lumbar Spine Special Tests Slump Comments some tightness in HS/calf L PT-OP-M Strength Start: 06/12/23 17:14 Freq: Status: Active Protocol: Document 06/13/23 09:27 [facility] (Rec: 06/13/23 11:19 [facility] [id number]) Hip Strength Hip Manual Muscle Testing Right Flexion (L2) 4 Good Extension (S1) 4- Good- Abduction 5 Normal External Rotation 4+ Good+ Internal Rotation 5 Normal Left Flexion (L2) 3+ Fair+ Extension (S1) 5 Normal Abduction 5 Normal External Rotation 3+ Fair+ Internal Rotation 5 Normal Knee Strength Knee Manual Muscle Testing Right Flexion (S2) 5 Normal Extension (L3) 5 Normal Left Flexion (S2) 5 Normal Extension (L3) 5 Normal Ankle/Foot Strength Ankle and Foot Manual Muscle Testing Right Dorsiflexion (L4) 5 Normal Plantarflexion (S1) 5 Normal Comments Dec R>L DF ROM; pain in lat foot w/heel raises Left Dorsiflexion (L4) 5 Normal Plantarflexion (S1) 5 Normal Comments 20 heel raises B PT-OP-Q Treatments Start: 06/12/23 17:14 Freq: Status: Active Protocol: Document 06/13/23 09:27 [facility] (Rec: 06/13/23 11:19 [facility] [id number]) Self-Care/Home Management Treatment Education Other Education 8 min: edu to pt how he shows overall good LE strength with soem clear deficits, but does not show good motor control so training will be needed to facilite and train movement patterns fro gait. Discussed how back pain likely cont d/t pelvis being off and this likely dec his ability to facilitate his glutes and core which does affect his balance . Edu on importance of working on back manually and w/core stability to dec pain and improve balance. edu that back exercsies should not inc back pain. PT-OP-T Assessment and Plan Start: 06/12/23 17:14 Freq: Status: Active Protocol: Document 06/13/23 09:27 [facility] (Rec: 06/13/23 11:19 [facility] [id number]) Physical Therapy Assessment Rehab Potential Rehabilitation Potential Good Evaluation Complexity Number of Personal Factors/Comorbidities 3 or More Number of Body Systems Impaired 4 or More Clinical Presentation at Evaluation Evolving Impairments Impairments Activity Tolerance,Balance, Functional Activities, Functional Mobility,Gait,Pain, Posture,ROM,Soft Tissue Mobility,Strength,Transfers Goals posture Impairment VCT 1/5 Halfway Goal (LTG) Pt will improve VCT to at least 4/5 to show improved postural alignment to allow improved stability and dec pain. LTG Duration 09/05/23 strength Short Term Goal (STG) Pt will be indep w/hEP STG Duration 07/23/23 Cardiology Consultant Goal (LTG) Pt will score 5/5 on BLE MMT and at least 4/5 on LPM in all planes to show improved stability to improve balance and strength. LTG Duration 09/02/23 activity Short Term Goal (STG) Pt will be able to drive to his mailbox at post office without inc back pain. STG Duration 07/23/23 Cardiology Consultant Goal (LTG) Pt will be able to drive for 1 hour and do yard/housework w/ o back pain greater than 3/10 LTG Duration 09/05/23 balance Short Term Goal (STG) Pt will be able to RLE SLS for at least 15 sec STG Duration 07/23/23 Cardiology Consultant Goal (LTG) Pt will be able to do SLS B w/ good alignment for 30 sec ea and at least 25/30 on FGA to show improved balance. LTG Duration 09/05/23 Assessment Summary Assessment Pt presents w/concern that his balance has been worsening for the past 5 years with most recent years being most notable along w/long (almost 60 year) history of LBP that he has tried PT for but his PT exercises actually inc his pain. He feels his LBP may be related to his balance and is likely right as he does show dec core stability and dec ability to move lumbar spine, which likely causes compensatory movements. He has a long history of surgeries w /B knee surgeries, L MELBA, R liver/gallbladder surgery and history of leukema w/treatment all, which may affect his mobility and likely his balance. It was notable that RLE balance was much dec compared to L and his RLE is where he occ gets radicular symptoms so this is likely related. 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 Physical Therapy Plan Frequency and Duration Frequency of Treatment 2x/Week Duration of treatment (weeks) 12 Plan of Care Start Date 06/13/23 Plan of Care End Date 09/05/23 Therapeutic Interventions Therapeutic Interventions Balance Training,Gait Training ,Home Exercise Program,Joint Mobilizations,Manual Therapy, Neuromuscular Re-education, Orthotic/Prosthetic Management ,Patient/Caregiver Education, Self-Care/Home Management,Soft Tissue Mobilization,Taping, Therapeutic Activities, Therapeutic Exercises, Vestibular Rehabilitation Modalities Cold Pack/Ice Massage,Electric Stimulation,Hot Packs, Infrared Therapy,Traction- Mechanical,Ultrasound Next Visit Focus/Plan Next Note Type Treatment Note Next Visit Plan FGA test HEP: SLS, tandem balance, clamshells, sit to stands/ squats, supine core strengthening Manual to innominate and hip to improve alignment and dec back pain
--- NOTE | 2023-06-13 14:22 | PT.OPPOC ---
Physical, Occupational & Speech Therapy At [facility] Current Diagnoses Low back pain, unspecified (06/13/23) Difficulty in walking, not elsewhere classified (06/13/23) Other abnormalities of gait and mobility (06/13/23) Abnormal posture (06/13/23) Weakness (06/13/23) Visit Care Team Role Provider Type Jj La MD Attending Provider Physician Family Provider Primary Care Provider Referring Provider Specialty: Family Practice Address: [address] [place] [address] Email: [email or web address] Plan Of Care PT-OP-T Assessment and Plan Start: 06/12/23 17:14 Freq: Status: Active Protocol: Document 06/13/23 09:27 [facility] (Rec: 06/13/23 11:19 [facility] [id number]) Physical Therapy Assessment Rehab Potential Rehabilitation Potential Good Evaluation Complexity Number of Personal Factors/Comorbidities 3 or More Number of Body Systems Impaired 4 or More Clinical Presentation at Evaluation Evolving Impairments Impairments Activity Tolerance,Balance, Functional Activities, Functional Mobility,Gait,Pain, Posture,ROM,Soft Tissue Mobility,Strength,Transfers Goals posture Impairment VCT 1/5 Detention Goal (LTG) Pt will improve VCT to at least 4/5 to show improved postural alignment to allow improved stability and dec pain. LTG Duration 09/05/23 strength Short Term Goal (STG) Pt will be indep w/hEP STG Duration 07/23/23 Detention Goal (LTG) Pt will score 5/5 on BLE MMT and at least 4/5 on LPM in all planes to show improved stability to improve balance and strength. LTG Duration 09/02/23 activity Short Term Goal (STG) Pt will be able to drive to his mailbox at post office without inc back pain. STG Duration 07/23/23 Unloader Goal (LTG) Pt will be able to drive for 1 hour and do yard/housework w/ o back pain greater than 3/10 LTG Duration 09/05/23 balance Short Term Goal (STG) Pt will be able to RLE SLS for at least 15 sec STG Duration 07/23/23 Detention Goal (LTG) Pt will be able to do SLS B w/ good alignment for 30 sec ea and at least 25/30 on FGA to show improved balance. LTG Duration 09/05/23 Assessment Summary Assessment Pt presents w/concern that his balance has been worsening for the past 5 years with most recent years being most notable along w/long (almost 60 year) history of LBP that he has tried PT for but his PT exercises actually inc his pain. He feels his LBP may be related to his balance and is likely right as he does show dec core stability and dec ability to move lumbar spine, which likely causes compensatory movements. He has a long history of surgeries w /B knee surgeries, L MELBA, R liver/gallbladder surgery and history of leukema w/treatment all, which may affect his mobility and likely his balance. It was notable that RLE balance was much dec compared to L and his RLE is where he occ gets radicular symptoms so this is likely related. 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 Physical Therapy Plan Frequency and Duration Frequency of Treatment 2x/Week Duration of treatment (weeks) 12 Plan of Care Start Date 06/13/23 Plan of Care End Date 09/05/23 Therapeutic Interventions Therapeutic Interventions Balance Training,Gait Training ,Home Exercise Program,Joint Mobilizations,Manual Therapy, Neuromuscular Re-education, Orthotic/Prosthetic Management ,Patient/Caregiver Education, Self-Care/Home Management,Soft Tissue Mobilization,Taping, Therapeutic Activities, Therapeutic Exercises, Vestibular Rehabilitation Modalities Cold Pack/Ice Massage,Electric Stimulation,Hot Packs, Infrared Therapy,Traction- Mechanical,Ultrasound Next Visit Focus/Plan Next Note Type Treatment Note Next Visit Plan FGA test HEP: SLS, tandem balance, clamshells, sit to stands/ squats, supine core strengthening Manual to innominate and hip to improve alignment and dec back pain Plan of Care Dates Plan of Care Start Date 06/13/23 Plan of Care End Date 09/05/23 Electronically Signed by: Nga Black, PT 06/13/23 [id number] If you are in agreement with this Plan of Care, please return a signed and dated copy. I have reviewed this Plan of Care and certify that the skilled therapy services above are required to meet the patient?s needs. Physician Signature Date Printed Name and Credentials Clinical Instructor Signature Printed Name and Credentials
--- NOTE | 2023-06-17 11:01 | PT.OTN ---
Addendum entered and electronically signed by Elza Kang 06/18/23 08:27: Error: treatment missing Original Note: Current Diagnoses Low back pain, unspecified (06/17/23) Difficulty in walking, not elsewhere classified (06/17/23) Other abnormalities of gait and mobility (06/17/23) Abnormal posture (06/17/23) Weakness (06/17/23) Physical Therapy Treatment Note PT-OP-A Visit Information Start: 06/12/23 17:14 Freq: Status: Active Protocol: Document 06/17/23 08:03 AB (Rec: 06/17/23 11:00 AB [id number]) Out-Patient Physical Therapy Visit Information Visit Information Visit Type Treatment Note Visit Note 06/01 Access Code [email or web address] Visit Start Time 08:15 Visit Stop Time 08:59 Visit Number 2 Number of BIT GRINDER Visits 1 PT-OP-B Current Condition Start: 06/12/23 17:14 Freq: Status: Active Protocol: Document 06/13/23 09:27 [facility] (Rec: 06/13/23 11:19 [facility] [id number]) Current Condition History of Current Condition Current Complaints back pain & dec balance History of Current Condition Pt reports he has had really good balance all his life and don't trust it anymore. he still occ climb ladders and occ is worried about it and gets slow and careful. He does have DDD in bottom 5 vertebrae and mult degenerative changes. His back is stiff a lot. He has done PT in the past and at this point has given up on finding a cure. Walks 3 miles 5 days a week and tries to stay active . Uses an inversion table to prn to avoid sciatica. His sense is his back affects his balance. Doing the exercises over several months, didn't help but back gets tired from his PT exercises. When back gets tired, he starts tog et pain radiating to his buttocks and into back of leg. does report neuropathy. Last chemo was 5 years ago and has had leukemia dx for 31 years. In remission right now and is still regularly checked. hx of B knee replacements. Cyst on liver and gallbadder removed along w/part of liver and gallbladder. Pt reports he feels like his balance started to decline about 5 years w/ last 2-3 years more pronounced . SItting up in a straight backed chair is painful. Drive 10-15 min and has trouble getting straightened up. 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 He used to use a lot of asprin and ibuprofen in the past but cannot use it anymore. Dizziness sometimes when standing to get of chair. Hx L hip replacement. Pt has hx of L MELBA. Prior Treatments and Tests 2018 MRI: IMPRESSION: 1. Multilevel degenerative disc and facet disease, as well ligamentum flavum hypertrophy. 2. Grade I isthmic spondylolisthesis at L5-S1. 3. Severe bilateral L5-S1 foraminal stenosis, with associated flattening deformity of the L5 nerve roots in the neural foramina. Recommend correlation with clinical symptoms to ascertain relevance of this finding. 4. Mild canal and mild to moderate foraminal stenosis at the remaining levels. Treatment Goals Patient/Caregiver Goals Improve balance, find a way to cope better w/back, be able to yard work w/less repercussion; be able drive longer distances PT-OP-C Subjective Start: 06/12/23 17:14 Freq: Status: Active Protocol: Document 06/17/23 08:03 AB (Rec: 06/17/23 11:00 [id number]) OP-PT Subjective Patient Comments Patient Comments Patient reports sitting in a hard chair, upright is painful in about 20 minutes. Patient reports walking makes him feel better. PT-OP-D Balance Start: 06/12/23 17:14 Freq: Status: Active Protocol: Document 06/13/23 09:27 [facility] (Rec: 06/13/23 11:19 [facility] [id number]) Balance Tests Single Limb Standing Single Limb- Right 5 sec w/ lat lean over leg Single Limb- Left >30 sec w/hip ER PT-OP-E Functional Tests Start: 06/12/23 17:14 Freq: Status: Active Protocol: Document 06/13/23 09:27 [facility] (Rec: 06/13/23 11:19 [facility] [id number]) Functional Tests 30 Second Sit to Stand Test Score 9 Comments back pain and R knee pain Five Times Sit to Stand Test Score 16 sec Comments back pain PT-OP-F Manual Assessment Start: 06/12/23 17:14 Freq: Status: Active Protocol: Document 06/13/23 09:27 [facility] (Rec: 06/13/23 11:19 [facility] [id number]) Manual Assessments Joint Mobility Assessment Joint Mobility Assessment L iliac crest higher; equal greater trochanter B PT-OP-G Mobility & Gait Start: 06/12/23 17:14 Freq: Status: Active Protocol: Document 06/13/23 09:27 [facility] (Rec: 06/13/23 11:19 [facility] [id number]) OP Gait Assessment Comments Gait Comments lay out inspector of RLE and lat lean w /wt acceptance on RLE; dec push off B PT-OP-J Posture/Palpation/Skin Start: 06/12/23 17:14 Freq: Status: Active Protocol: Document 06/13/23 09:27 [facility] (Rec: 06/13/23 11:19 [facility] [id number]) Posture Evaluation Tamara Postural Classification System Tamara Postural Classifications Posterior/Anterior Vertebral Compression Test 1 Lumbar Protective Mechanism Left AP 0 Lumbar Protective Mechanism Right AP 2 Lumbar Protective Mechanism Left PA 3 Comments Posture Comments L pelvic shear, L rot, L toe out, L shoulder higher, dec lordosis, inc upper tspine kyphosis PT-OP-K Range of Motion Start: 06/12/23 17:14 Freq: Status: Active Protocol: Document 06/13/23 09:27 [facility] (Rec: 06/13/23 11:19 [facility] [id number]) Lumbar Spine Range of Motion Lumbar Spine Active Percentage Flexion 50 Extension 20 Rotation Left 50 Rotation Right 75 Lateral Flexion Left 75 Lateral Flexion Right 50 ROM Limitations Pain PT-OP-L Special Tests Start: 06/12/23 17:14 Freq: Status: Active Protocol: Document 06/13/23 09:27 [facility] (Rec: 06/13/23 11:19 [facility] [id number]) Special Tests Lumbar Spine Special Tests Slump Comments some tightness in HS/calf L PT-OP-M Strength Start: 06/12/23 17:14 Freq: Status: Active Protocol: Document 06/13/23 09:27 [facility] (Rec: 06/13/23 11:19 [facility] [id number]) Hip Strength Hip Manual Muscle Testing Right Flexion (L2) 4 Good Extension (S1) 4- Good- Abduction 5 Normal External Rotation 4+ Good+ Internal Rotation 5 Normal Left Flexion (L2) 3+ Fair+ Extension (S1) 5 Normal Abduction 5 Normal External Rotation 3+ Fair+ Internal Rotation 5 Normal Knee Strength Knee Manual Muscle Testing Right Flexion (S2) 5 Normal Extension (L3) 5 Normal Left Flexion (S2) 5 Normal Extension (L3) 5 Normal Ankle/Foot Strength Ankle and Foot Manual Muscle Testing Right Dorsiflexion (L4) 5 Normal Plantarflexion (S1) 5 Normal Comments Dec R>L DF ROM; pain in lat foot w/heel raises Left Dorsiflexion (L4) 5 Normal Plantarflexion (S1) 5 Normal Comments 20 heel raises B PT-OP-Q Treatments Start: 06/12/23 17:14 Freq: Status: Active Protocol: Document 06/17/23 08:03 AB (Rec: 06/17/23 11:00 AB [id number]) Therapeutic Exercises Supine Exercises bent knee fall out with and without band Side bilateral Resistance level one light blue band Reps/Minutes initiated w/o band X2 then X 10 with band Comments VC to brace when LE's move away from core abdominal bracing with heel slide Side bilateral Reps/Minutes X10 each LE Comments Verbal cues to brace as LE moves away from core Manual Therapy Treatment Soft Tissue Mobilization LS nerve slacking bilateral glute/piriformis Mobilization Type Cross-Friction,Rolling, Sustained Pressure Intensity/Depth Moderate Body Position Sidelying Comments performed prior to MET Manual Techniques MET for left AI right PI and pubic shotgun Type MET Body Location SI Body Position Hooklying Reps/Duration 6X6 each MET Comments Verbal cues, monitored for pain Neuro Re-Education Treatment Balance Activities SLS Surface floor Reps/Duration 1X Comments without UE use 3 sec left 5 sec right FGA Reps/Duration Supervision to minimal assist Comments Score of 22 PT-OP-T Assessment and Plan Start: 06/12/23 17:14 Freq: Status: Active Protocol: Document 06/17/23 08:03 AB (Rec: 06/17/23 11:00 AB [id number]) Physical Therapy Assessment Goals posture Impairment VCT 1/5 It Risk And Assurance Manager Goal (LTG) Pt will improve VCT to at least 4/5 to show improved postural alignment to allow improved stability and dec pain. LTG Duration 09/05/23 Assessment Summary Assessment Patient reports feeling looser post manual therapy, comments on feeling looser during FGA test. Increased unsteadiness with head turns and tandem stepping. Physical Therapy Plan Frequency and Duration Frequency of Treatment 2x/Week Duration of treatment (weeks) 12 Plan of Care Start Date 06/13/23 Plan of Care End Date 09/05/23 Next Visit Focus/Plan Next Note Type Treatment Note Next Visit Plan FGA re-test as needed HEP: SLS, tandem balance ( with head turns ), clamshells, focus on sit to stands/squats next visit, supine core strengthening Manual to innominate and hip to improve alignment and dec back pain PRN
--- NOTE | 2023-06-17 14:08 | PT.OTN ---
Current Diagnoses Low back pain, unspecified (06/17/23) Difficulty in walking, not elsewhere classified (06/17/23) Other abnormalities of gait and mobility (06/17/23) Abnormal posture (06/17/23) Weakness (06/17/23) Physical Therapy Treatment Note PT-OP-A Visit Information Start: 06/12/23 17:14 Freq: Status: Active Protocol: Document 06/17/23 08:03 AB (Rec: 06/17/23 11:00 AB [id number]) Out-Patient Physical Therapy Visit Information Visit Information Visit Type Treatment Note Visit Note 06/01 Access Code [email or web address] Visit Start Time 08:15 Visit Stop Time 08:59 Visit Number 2 Number of GROCERY CLERK Visits 1 PT-OP-B Current Condition Start: 06/12/23 17:14 Freq: Status: Active Protocol: Document 06/13/23 09:27 [facility] (Rec: 06/13/23 11:19 [facility] [id number]) Current Condition History of Current Condition Current Complaints back pain & dec balance History of Current Condition Pt reports he has had really good balance all his life and don't trust it anymore. he still occ climb ladders and occ is worried about it and gets slow and careful. He does have DDD in bottom 5 vertebrae and mult degenerative changes. His back is stiff a lot. He has done PT in the past and at this point has given up on finding a cure. Walks 3 miles 5 days a week and tries to stay active . Uses an inversion table to prn to avoid sciatica. His sense is his back affects his balance. Doing the exercises over several months, didn't help but back gets tired from his PT exercises. When back gets tired, he starts tog et pain radiating to his buttocks and into back of leg. does report neuropathy. Last chemo was 5 years ago and has had leukemia dx for 31 years. In remission right now and is still regularly checked. hx of B knee replacements. Cyst on liver and gallbadder removed along w/part of liver and gallbladder. Pt reports he feels like his balance started to decline about 5 years w/ last 2-3 years more pronounced . SItting up in a straight backed chair is painful. Drive 10-15 min and has trouble getting straightened up. 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 He used to use a lot of asprin and ibuprofen in the past but cannot use it anymore. Dizziness sometimes when standing to get of chair. Hx L hip replacement. Pt has hx of L MELBA. Prior Treatments and Tests 2018 MRI: IMPRESSION: 1. Multilevel degenerative disc and facet disease, as well ligamentum flavum hypertrophy. 2. Grade I isthmic spondylolisthesis at L5-S1. 3. Severe bilateral L5-S1 foraminal stenosis, with associated flattening deformity of the L5 nerve roots in the neural foramina. Recommend correlation with clinical symptoms to ascertain relevance of this finding. 4. Mild canal and mild to moderate foraminal stenosis at the remaining levels. Treatment Goals Patient/Caregiver Goals Improve balance, find a way to cope better w/back, be able to yard work w/less repercussion; be able drive longer distances PT-OP-C Subjective Start: 06/12/23 17:14 Freq: Status: Active Protocol: Document 06/17/23 08:03 AB (Rec: 06/17/23 11:00 [id number]) OP-PT Subjective Patient Comments Patient Comments Patient reports sitting in a hard chair, upright is painful in about 20 minutes. Patient reports walking makes him feel better. PT-OP-D Balance Start: 06/12/23 17:14 Freq: Status: Active Protocol: Document 06/13/23 09:27 [facility] (Rec: 06/13/23 11:19 [facility] [id number]) Balance Tests Single Limb Standing Single Limb- Right 5 sec w/ lat lean over leg Single Limb- Left >30 sec w/hip ER PT-OP-E Functional Tests Start: 06/12/23 17:14 Freq: Status: Active Protocol: Document 06/17/23 08:03 AB (Rec: 06/17/23 14:07 [id number]) Functional Tests Functional Gait Assessment Functional Gait Assessment Impairment 20 to <40% Impaired (Score 19- Rating 24) PT-OP-F Manual Assessment Start: 06/12/23 17:14 Freq: Status: Active Protocol: Document 06/13/23 09:27 [facility] (Rec: 06/13/23 11:19 [facility] [id number]) Manual Assessments Joint Mobility Assessment Joint Mobility Assessment L iliac crest higher; equal greater trochanter B PT-OP-G Mobility & Gait Start: 06/12/23 17:14 Freq: Status: Active Protocol: Document 06/13/23 09:27 [facility] (Rec: 06/13/23 11:19 [facility] [id number]) OP Gait Assessment Comments Gait Comments structural layout worker of RLE and lat lean w /wt acceptance on RLE; dec push off B PT-OP-J Posture/Palpation/Skin Start: 06/12/23 17:14 Freq: Status: Active Protocol: Document 06/13/23 09:27 [facility] (Rec: 06/13/23 11:19 [facility] [id number]) Posture Evaluation Tamara Postural Classification System Tamara Postural Classifications Posterior/Anterior Vertebral Compression Test 1 Lumbar Protective Mechanism Left AP 0 Lumbar Protective Mechanism Right AP 2 Lumbar Protective Mechanism Left PA 3 Comments Posture Comments L pelvic shear, L rot, L toe out, L shoulder higher, dec lordosis, inc upper tspine kyphosis PT-OP-K Range of Motion Start: 06/12/23 17:14 Freq: Status: Active Protocol: Document 06/13/23 09:27 [facility] (Rec: 06/13/23 11:19 [facility] [id number]) Lumbar Spine Range of Motion Lumbar Spine Active Percentage Flexion 50 Extension 20 Rotation Left 50 Rotation Right 75 Lateral Flexion Left 75 Lateral Flexion Right 50 ROM Limitations Pain PT-OP-L Special Tests Start: 06/12/23 17:14 Freq: Status: Active Protocol: Document 06/13/23 09:27 [facility] (Rec: 06/13/23 11:19 [facility] [id number]) Special Tests Lumbar Spine Special Tests Slump Comments some tightness in HS/calf L PT-OP-M Strength Start: 06/12/23 17:14 Freq: Status: Active Protocol: Document 06/13/23 09:27 [facility] (Rec: 06/13/23 11:19 [facility] [id number]) Hip Strength Hip Manual Muscle Testing Right Flexion (L2) 4 Good Extension (S1) 4- Good- Abduction 5 Normal External Rotation 4+ Good+ Internal Rotation 5 Normal Left Flexion (L2) 3+ Fair+ Extension (S1) 5 Normal Abduction 5 Normal External Rotation 3+ Fair+ Internal Rotation 5 Normal Knee Strength Knee Manual Muscle Testing Right Flexion (S2) 5 Normal Extension (L3) 5 Normal Left Flexion (S2) 5 Normal Extension (L3) 5 Normal Ankle/Foot Strength Ankle and Foot Manual Muscle Testing Right Dorsiflexion (L4) 5 Normal Plantarflexion (S1) 5 Normal Comments Dec R>L DF ROM; pain in lat foot w/heel raises Left Dorsiflexion (L4) 5 Normal Plantarflexion (S1) 5 Normal Comments 20 heel raises B PT-OP-Q Treatments Start: 06/12/23 17:14 Freq: Status: Active Protocol: Document 06/17/23 08:03 AB (Rec: 06/17/23 11:00 AB [id number]) Therapeutic Exercises Supine Exercises bent knee fall out with and without band Side bilateral Resistance level one light blue band Reps/Minutes initiated w/o band X2 then X 10 with band Comments VC to brace when LE's move away from core abdominal bracing with heel slide Side bilateral Reps/Minutes X10 each LE Comments Verbal cues to brace as LE moves away from core Manual Therapy Treatment Soft Tissue Mobilization LS nerve slacking bilateral glute/piriformis Mobilization Type Cross-Friction,Rolling, Sustained Pressure Intensity/Depth Moderate Body Position Sidelying Comments performed prior to MET Manual Techniques MET for left AI right PI and pubic shotgun Type MET Body Location SI Body Position Hooklying Reps/Duration 6X6 each MET Comments Verbal cues, monitored for pain Neuro Re-Education Treatment Balance Activities SLS Surface floor Reps/Duration 1X Comments without UE use 3 sec left 5 sec right FGA Reps/Duration Supervision to minimal assist Comments Score of 22 PT-OP-T Assessment and Plan Start: 06/12/23 17:14 Freq: Status: Active Protocol: Document 06/17/23 08:03 AB (Rec: 06/17/23 11:00 AB [id number]) Physical Therapy Assessment Goals posture Impairment VCT 1/5 Fdc Goal (LTG) Pt will improve VCT to at least 4/5 to show improved postural alignment to allow improved stability and dec pain. LTG Duration 09/05/23 Assessment Summary Assessment Patient reports feeling looser post manual therapy, comments on feeling looser during FGA test. Increased unsteadiness with head turns and tandem stepping. Physical Therapy Plan Frequency and Duration Frequency of Treatment 2x/Week Duration of treatment (weeks) 12 Plan of Care Start Date 06/13/23 Plan of Care End Date 09/05/23 Next Visit Focus/Plan Next Note Type Treatment Note Next Visit Plan FGA re-test as needed HEP: SLS, tandem balance ( with head turns ), clamshells, focus on sit to stands/squats next visit, supine core strengthening Manual to innominate and hip to improve alignment and dec back pain PRN
--- NOTE | 2023-06-19 09:27 | PT.OTN ---
Current Diagnoses Low back pain, unspecified (06/19/23) Difficulty in walking, not elsewhere classified (06/19/23) Other abnormalities of gait and mobility (06/19/23) Abnormal posture (06/19/23) Weakness (06/19/23) Physical Therapy Treatment Note PT-OP-A Visit Information Start: 06/12/23 17:14 Freq: Status: Active Protocol: Document 06/19/23 08:00 AB (Rec: 06/19/23 09:27 AB [id number]) Out-Patient Physical Therapy Visit Information Visit Information Visit Type Treatment Note Visit Note 06/29 Access Code [email or web address] Visit Start Time 08:15 Visit Stop Time 09:00 Visit Number 3 Number of BIOLOGY INTERNSHIP Visits 2 PT-OP-B Current Condition Start: 06/12/23 17:14 Freq: Status: Active Protocol: Document 06/13/23 09:27 [facility] (Rec: 06/13/23 11:19 [facility] [id number]) Current Condition History of Current Condition Current Complaints back pain & dec balance History of Current Condition Pt reports he has had really good balance all his life and don't trust it anymore. he still occ climb ladders and occ is worried about it and gets slow and careful. He does have DDD in bottom 5 vertebrae and mult degenerative changes. His back is stiff a lot. He has done PT in the past and at this point has given up on finding a cure. Walks 3 miles 5 days a week and tries to stay active . Uses an inversion table to prn to avoid sciatica. His sense is his back affects his balance. Doing the exercises over several months, didn't help but back gets tired from his PT exercises. When back gets tired, he starts tog et pain radiating to his buttocks and into back of leg. does report neuropathy. Last chemo was 5 years ago and has had leukemia dx for 31 years. In remission right now and is still regularly checked. hx of B knee replacements. Cyst on liver and gallbadder removed along w/part of liver and gallbladder. Pt reports he feels like his balance started to decline about 5 years w/ last 2-3 years more pronounced . SItting up in a straight backed chair is painful. Drive 10-15 min and has trouble getting straightened up. 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 He used to use a lot of asprin and ibuprofen in the past but cannot use it anymore. Dizziness sometimes when standing to get of chair. Hx L hip replacement. Pt has hx of L MELBA. Prior Treatments and Tests 2018 MRI: IMPRESSION: 1. Multilevel degenerative disc and facet disease, as well ligamentum flavum hypertrophy. 2. Grade I isthmic spondylolisthesis at L5-S1. 3. Severe bilateral L5-S1 foraminal stenosis, with associated flattening deformity of the L5 nerve roots in the neural foramina. Recommend correlation with clinical symptoms to ascertain relevance of this finding. 4. Mild canal and mild to moderate foraminal stenosis at the remaining levels. Treatment Goals Patient/Caregiver Goals Improve balance, find a way to cope better w/back, be able to yard work w/less repercussion; be able drive longer distances PT-OP-C Subjective Start: 06/12/23 17:14 Freq: Status: Active Protocol: Document 06/19/23 08:00 AB (Rec: 06/19/23 09:27 [id number]) OP-PT Subjective Patient Comments Patient Comments Pt reports better post prev session. Walking that afternoon was nomal, also walked the next day. PT-OP-D Balance Start: 06/12/23 17:14 Freq: Status: Active Protocol: Document 06/13/23 09:27 [facility] (Rec: 06/13/23 11:19 [facility] [id number]) Balance Tests Single Limb Standing Single Limb- Right 5 sec w/ lat lean over leg Single Limb- Left >30 sec w/hip ER PT-OP-E Functional Tests Start: 06/12/23 17:14 Freq: Status: Active Protocol: Document 06/17/23 08:03 AB (Rec: 06/17/23 14:07 [id number]) Functional Tests Functional Gait Assessment Functional Gait Assessment Impairment 20 to <40% Impaired (Score 19- Rating 24) PT-OP-F Manual Assessment Start: 06/12/23 17:14 Freq: Status: Active Protocol: Document 06/13/23 09:27 [facility] (Rec: 06/13/23 11:19 [facility] [id number]) Manual Assessments Joint Mobility Assessment Joint Mobility Assessment L iliac crest higher; equal greater trochanter B PT-OP-G Mobility & Gait Start: 02/21/24 17:14 Freq: Status: Active Protocol: Document 06/13/23 09:27 [facility] (Rec: 06/13/23 11:19 [facility] [id number]) OP Gait Assessment Comments Gait Comments rollout manager of RLE and lat lean w /wt acceptance on RLE; dec push off B PT-OP-J Posture/Palpation/Skin Start: 06/12/23 17:14 Freq: Status: Active Protocol: Document 06/13/23 09:27 [facility] (Rec: 06/13/23 11:19 [facility] [id number]) Posture Evaluation Tamara Postural Classification System Tamara Postural Classifications Posterior/Anterior Vertebral Compression Test 1 Lumbar Protective Mechanism Left AP 0 Lumbar Protective Mechanism Right AP 2 Lumbar Protective Mechanism Left PA 3 Comments Posture Comments L pelvic shear, L rot, L toe out, L shoulder higher, dec lordosis, inc upper tspine kyphosis PT-OP-K Range of Motion Start: 06/12/23 17:14 Freq: Status: Active Protocol: Document 06/13/23 09:27 [facility] (Rec: 06/13/23 11:19 [facility] [id number]) Lumbar Spine Range of Motion Lumbar Spine Active Percentage Flexion 50 Extension 20 Rotation Left 50 Rotation Right 75 Lateral Flexion Left 75 Lateral Flexion Right 50 ROM Limitations Pain PT-OP-L Special Tests Start: 06/12/23 17:14 Freq: Status: Active Protocol: Document 06/13/23 09:27 [facility] (Rec: 06/13/23 11:19 [facility] [id number]) Special Tests Lumbar Spine Special Tests Slump Comments some tightness in HS/calf L PT-OP-M Strength Start: 06/12/23 17:14 Freq: Status: Active Protocol: Document 06/13/23 09:27 [facility] (Rec: 06/13/23 11:19 [facility] [id number]) Hip Strength Hip Manual Muscle Testing Right Flexion (L2) 4 Good Extension (S1) 4- Good- Abduction 5 Normal External Rotation 4+ Good+ Internal Rotation 5 Normal Left Flexion (L2) 3+ Fair+ Extension (S1) 5 Normal Abduction 5 Normal External Rotation 3+ Fair+ Internal Rotation 5 Normal Knee Strength Knee Manual Muscle Testing Right Flexion (S2) 5 Normal Extension (L3) 5 Normal Left Flexion (S2) 5 Normal Extension (L3) 5 Normal Ankle/Foot Strength Ankle and Foot Manual Muscle Testing Right Dorsiflexion (L4) 5 Normal Plantarflexion (S1) 5 Normal Comments Dec R>L DF ROM; pain in lat foot w/heel raises Left Dorsiflexion (L4) 5 Normal Plantarflexion (S1) 5 Normal Comments 20 heel raises B PT-OP-Q Treatments Start: 06/12/23 17:14 Freq: Status: Active Protocol: Document 06/19/23 08:00 AB (Rec: 06/19/23 09:27 AB [id number]) Therapeutic Activity Therapeutic Activity sit to stand Name with and without band Reps/Minutes X2 then X 10 with band Comments Pt ed mechanics of sit to stand, patient ed use of self tactile cues for hip hinge. VC to keep tension on light blue band and perform sit to stand , initiatlly at a standard seat height, but reps X10 at 20 inch seat height. Manual Therapy Treatment Soft Tissue Mobilization LS nerve slacking bilateral glute/piriformis Mobilization Type Cross-Friction,Rolling, Sustained Pressure Intensity/Depth Moderate Body Position Sidelying Comments performed prior to MET Manual Techniques MET for left AI right PI and pubic shotgun Type MET Body Location SI Body Position Hooklying Reps/Duration 6X6 each MET Comments Verbal cues, monitored for pain Neuro Re-Education Treatment Balance Activities mini Lunge on Bosu Details first rep w/o UE use CGA/hands above parallel bars to use as needed for LOB Equipment Bosu Reps/Duration X5 Comments Discontinued due to reports of knee pain Tandem stepping Details CGA/ hands above parallel bars to use as needed for LOB Reps/Duration 10 feet X 8 Comments initially with eyes on feet, then facing forward, counting back by 2's, followed by head turns step up taps Details CGA/ hands above parallel bars to use as needed for LOB Equipment 8 inch step Reps/Duration X15 Comments slightly unstead on last 5 repetitions, but able to correct Other Activities glute med activation Details one minute hold seated hip abduction with level one band Reps/Duration X1 one minute hold Comments Verbal cues Self-Care/Home Management Treatment Activities Self-Care/Home Management Activities sit to stand with band and seated hip abduction glute med isometric added to HEP PT-OP-T Assessment and Plan Start: 06/12/23 17:14 Freq: Status: Active Protocol: Document 06/19/23 08:00 AB (Rec: 06/19/23 09:27 AB [id number]) Physical Therapy Assessment Goals posture Impairment VCT 1/5 Senior Patient Account Representative Goal (LTG) Pt will improve VCT to at least 4/5 to show improved postural alignment to allow improved stability and dec pain. LTG Duration 09/05/23 strength Short Term Goal (STG) Pt will be indep w/hEP STG Duration 07/23/23 Alf Goal (LTG) Pt will score 5/5 on BLE MMT and at least 4/5 on LPM in all planes to show improved stability to improve balance and strength. LTG Duration 09/02/23 activity Short Term Goal (STG) Pt will be able to drive to his mailbox at post office without inc back pain. STG Duration 07/23/23 Alf Goal (LTG) Pt will be able to drive for 1 hour and do yard/housework w/ o back pain greater than 3/10 LTG Duration 09/05/23 balance Short Term Goal (STG) Pt will be able to RLE SLS for at least 15 sec STG Duration 07/23/23 Senior Patient Account Representative Goal (LTG) Pt will be able to do SLS B w/ good alignment for 30 sec ea and at least 25/30 on FGA to show improved balance. LTG Duration 09/05/23 Assessment Summary Assessment Nicholas reports feeling tired, but not more sore end of session. Good return demonstration for hip hinge with sit to stand, but increased use of momentum and slightly increased velocity with stand to sit to a standard chair seat height. Physical Therapy Plan Frequency and Duration Frequency of Treatment 2x/Week Duration of treatment (weeks) 12 Plan of Care Start Date 06/13/23 Plan of Care End Date 09/05/23 Next Visit Focus/Plan Next Note Type Treatment Note Next Visit Plan FGA re-test as needed HEP: SLS, tandem balance ( with head turns ), clamshells, revisit sit to stands/squats next visit, review supine core strengthening Manual to innominate and hip to improve alignment and dec back pain PRN/ possibly add piriformis stretch
--- NOTE | 2023-06-27 12:18 | PT.OTN ---
Current Diagnoses Low back pain, unspecified (06/27/23) Difficulty in walking, not elsewhere classified (06/27/23) Other abnormalities of gait and mobility (06/27/23) Abnormal posture (06/27/23) Weakness (06/27/23) Physical Therapy Treatment Note PT-OP-A Visit Information Start: 06/12/23 17:14 Freq: Status: Active Protocol: Document 06/27/23 09:40 [facility] (Rec: 06/27/23 12:18 [facility] [id number]) Out-Patient Physical Therapy Visit Information Visit Information Visit Type Treatment Note Visit Note 07/30 Access Code [email or web address] Visit Start Time 11:23 Visit Stop Time 12:03 Visit Number 4 Number of CASH PERSON Visits 0 PT-OP-B Current Condition Start: 06/12/23 17:14 Freq: Status: Active Protocol: Document 06/13/23 09:27 [facility] (Rec: 06/13/23 11:19 [facility] [id number]) Current Condition History of Current Condition Current Complaints back pain & dec balance History of Current Condition Pt reports he has had really good balance all his life and don't trust it anymore. he still occ climb ladders and occ is worried about it and gets slow and careful. He does have DDD in bottom 5 vertebrae and mult degenerative changes. His back is stiff a lot. He has done PT in the past and at this point has given up on finding a cure. Walks 3 miles 5 days a week and tries to stay active . Uses an inversion table to prn to avoid sciatica. His sense is his back affects his balance. Doing the exercises over several months, didn't help but back gets tired from his PT exercises. When back gets tired, he starts tog et pain radiating to his buttocks and into back of leg. does report neuropathy. Last chemo was 5 years ago and has had leukemia dx for 31 years. In remission right now and is still regularly checked. hx of B knee replacements. Cyst on liver and gallbadder removed along w/part of liver and gallbladder. Pt reports he feels like his balance started to decline about 5 years w/ last 2-3 years more pronounced . SItting up in a straight backed chair is painful. Drive 10-15 min and has trouble getting straightened up. 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 He used to use a lot of asprin and ibuprofen in the past but cannot use it anymore. Dizziness sometimes when standing to get of chair. Hx L hip replacement. Pt has hx of L MELBA. Prior Treatments and Tests 2018 MRI: IMPRESSION: 1. Multilevel degenerative disc and facet disease, as well ligamentum flavum hypertrophy. 2. Grade I isthmic spondylolisthesis at L5-S1. 3. Severe bilateral L5-S1 foraminal stenosis, with associated flattening deformity of the L5 nerve roots in the neural foramina. Recommend correlation with clinical symptoms to ascertain relevance of this finding. 4. Mild canal and mild to moderate foraminal stenosis at the remaining levels. Treatment Goals Patient/Caregiver Goals Improve balance, find a way to cope better w/back, be able to yard work w/less repercussion; be able drive longer distances PT-OP-C Subjective Start: 06/12/23 17:14 Freq: Status: Active Protocol: Document 06/27/23 09:40 [facility] (Rec: 06/27/23 12:18 [facility] [id number]) OP-PT Subjective Patient Comments Patient Comments Pt reports he feels like he is doing better Patient Reported Progress Improving PT-OP-D Balance Start: 06/12/23 17:14 Freq: Status: Active Protocol: Document 06/13/23 09:27 [facility] (Rec: 06/13/23 11:19 [facility] [id number]) Balance Tests Single Limb Standing Single Limb- Right 5 sec w/ lat lean over leg Single Limb- Left >30 sec w/hip ER PT-OP-E Functional Tests Start: 06/12/23 17:14 Freq: Status: Active Protocol: Document 06/17/23 08:03 AB (Rec: 06/17/23 14:07 AB [id number]) Functional Tests Functional Gait Assessment Functional Gait Assessment Impairment 20 to <40% Impaired (Score 19- Rating 24) PT-OP-F Manual Assessment Start: 06/12/23 17:14 Freq: Status: Active Protocol: Document 06/13/23 09:27 [facility] (Rec: 06/13/23 11:19 [facility] [id number]) Manual Assessments Joint Mobility Assessment Joint Mobility Assessment L iliac crest higher; equal greater trochanter B PT-OP-G Mobility & Gait Start: 06/12/23 17:14 Freq: Status: Active Protocol: Document 06/13/23 09:27 [facility] (Rec: 06/13/23 11:19 [facility] [id number]) OP Gait Assessment Comments Gait Comments sign out clerk of RLE and lat lean w /wt acceptance on RLE; dec push off B PT-OP-J Posture/Palpation/Skin Start: 06/12/23 17:14 Freq: Status: Active Protocol: Document 06/13/23 09:27 [facility] (Rec: 06/13/23 11:19 [facility] [id number]) Posture Evaluation Tamara Postural Classification System Tamara Postural Classifications Posterior/Anterior Vertebral Compression Test 1 Lumbar Protective Mechanism Left AP 0 Lumbar Protective Mechanism Right AP 2 Lumbar Protective Mechanism Left PA 3 Comments Posture Comments L pelvic shear, L rot, L toe out, L shoulder higher, dec lordosis, inc upper tspine kyphosis PT-OP-K Range of Motion Start: 06/12/23 17:14 Freq: Status: Active Protocol: Document 06/13/23 09:27 [facility] (Rec: 06/13/23 11:19 [facility] [id number]) Lumbar Spine Range of Motion Lumbar Spine Active Percentage Flexion 50 Extension 20 Rotation Left 50 Rotation Right 75 Lateral Flexion Left 75 Lateral Flexion Right 50 ROM Limitations Pain PT-OP-L Special Tests Start: 06/12/23 17:14 Freq: Status: Active Protocol: Document 06/13/23 09:27 [facility] (Rec: 06/13/23 11:19 [facility] [id number]) Special Tests Lumbar Spine Special Tests Slump Comments some tightness in HS/calf L PT-OP-M Strength Start: 06/12/23 17:14 Freq: Status: Active Protocol: Document 06/13/23 09:27 [facility] (Rec: 06/13/23 11:19 [facility] [id number]) Hip Strength Hip Manual Muscle Testing Right Flexion (L2) 4 Good Extension (S1) 4- Good- Abduction 5 Normal External Rotation 4+ Good+ Internal Rotation 5 Normal Left Flexion (L2) 3+ Fair+ Extension (S1) 5 Normal Abduction 5 Normal External Rotation 3+ Fair+ Internal Rotation 5 Normal Knee Strength Knee Manual Muscle Testing Right Flexion (S2) 5 Normal Extension (L3) 5 Normal Left Flexion (S2) 5 Normal Extension (L3) 5 Normal Ankle/Foot Strength Ankle and Foot Manual Muscle Testing Right Dorsiflexion (L4) 5 Normal Plantarflexion (S1) 5 Normal Comments Dec R>L DF ROM; pain in lat foot w/heel raises Left Dorsiflexion (L4) 5 Normal Plantarflexion (S1) 5 Normal Comments 20 heel raises B PT-OP-Q Treatments Start: 06/12/23 17:14 Freq: Status: Active Protocol: Document 06/27/23 09:40 [facility] (Rec: 06/27/23 12:18 [facility] [id number]) Therapeutic Exercises Supine Exercises LTR Side bilateral Reps/Minutes 10 Comments cues for core engament abdominal bracing with heel slide Side bilateral Reps/Minutes X10 R; 2x10 L Comments VC and tactile cues Standing Exercises sit to stand Standing Exercise Name 1. chair 2. 20 in mat Side bilateral Reps/Minutes 8 ea Comments cues to tap Manual Therapy Treatment Soft Tissue Mobilization LB Body Location ES L>R Mobilization Type Rolling,Strumming Intensity/Depth Moderate Body Position Prone Joint Mobilizations sacrum Joint L caudal and UPA L FM innominate Comments L caudal & ER FM hip Grade II Comments L IR Free the ball, ER hip on axis, L inf FM PT-OP-T Assessment and Plan Start: 06/12/23 17:14 Freq: Status: Active Protocol: Document 06/27/23 09:40 [facility] (Rec: 06/27/23 12:18 [facility] [id number]) Physical Therapy Assessment Goals posture Impairment VCT 1/5 Managed Care Analyst Goal (LTG) Pt will improve VCT to at least 4/5 to show improved postural alignment to allow improved stability and dec pain. LTG Duration 09/05/23 strength Short Term Goal (STG) Pt will be indep w/hEP STG Duration 07/23/23 Managed Care Analyst Goal (LTG) Pt will score 5/5 on BLE MMT and at least 4/5 on LPM in all planes to show improved stability to improve balance and strength. LTG Duration 09/02/23 activity Short Term Goal (STG) Pt will be able to drive to his mailbox at post office without inc back pain. STG Duration 07/23/23 Managed Care Analyst Goal (LTG) Pt will be able to drive for 1 hour and do yard/housework w/ o back pain greater than 3/10 LTG Duration 09/05/23 balance Short Term Goal (STG) Pt will be able to RLE SLS for at least 15 sec STG Duration 07/23/23 Managed Care Analyst Goal (LTG) Pt will be able to do SLS B w/ good alignment for 30 sec ea and at least 25/30 on FGA to show improved balance. LTG Duration 09/05/23 Assessment Summary Assessment Improved comfort w/sit to stand taps after manual treatment today and improved pelvis dave w/L only slightly higher after manual. Required cues w/core for engagment througout to avoid trunk motion. Physical Therapy Plan Frequency and Duration Frequency of Treatment 2x/Week Duration of treatment (weeks) 12 Plan of Care Start Date 06/13/23 Plan of Care End Date 09/05/23 Next Visit Focus/Plan Next Note Type Treatment Note Next Visit Plan HEP: SLS, tandem balance ( with head turns ), clamshells, revisit sit to stands/squats next visit, review supine core strengthening Manual to innominate and hip to improve alignment and dec back pain PRN/ possibly add piriformis stretch
--- NOTE | 2023-07-01 18:13 | PT.OTN ---
Current Diagnoses Low back pain, unspecified (07/01/23) Difficulty in walking, not elsewhere classified (07/01/23) Other abnormalities of gait and mobility (07/01/23) Abnormal posture (07/01/23) Weakness (07/01/23) Physical Therapy Treatment Note PT-OP-A Visit Information Start: 06/12/23 17:14 Freq: Status: Active Protocol: Document 07/01/23 15:22 [facility] (Rec: 07/01/23 18:13 [facility] [id number]) Out-Patient Physical Therapy Visit Information Visit Information Visit Type Treatment Note Visit Note 08/29 Access Code [email or web address] Visit Start Time 15:21 Visit Stop Time 16:00 Visit Number 5 Number of DUPLICATION SPECIALIST Visits 0 PT-OP-B Current Condition Start: 06/12/23 17:14 Freq: Status: Active Protocol: Document 06/13/23 09:27 [facility] (Rec: 06/13/23 11:19 [facility] [id number]) Current Condition History of Current Condition Current Complaints back pain & dec balance History of Current Condition Pt reports he has had really good balance all his life and don't trust it anymore. he still occ climb ladders and occ is worried about it and gets slow and careful. He does have DDD in bottom 5 vertebrae and mult degenerative changes. His back is stiff a lot. He has done PT in the past and at this point has given up on finding a cure. Walks 3 miles 5 days a week and tries to stay active . Uses an inversion table to prn to avoid sciatica. His sense is his back affects his balance. Doing the exercises over several months, didn't help but back gets tired from his PT exercises. When back gets tired, he starts tog et pain radiating to his buttocks and into back of leg. does report neuropathy. Last chemo was 5 years ago and has had leukemia dx for 31 years. In remission right now and is still regularly checked. hx of B knee replacements. Cyst on liver and gallbadder removed along w/part of liver and gallbladder. Pt reports he feels like his balance started to decline about 5 years w/ last 2-3 years more pronounced . SItting up in a straight backed chair is painful. Drive 10-15 min and has trouble getting straightened up. 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 He used to use a lot of asprin and ibuprofen in the past but cannot use it anymore. Dizziness sometimes when standing to get of chair. Hx L hip replacement. Pt has hx of L MELBA. Prior Treatments and Tests 2018 MRI: IMPRESSION: 1. Multilevel degenerative disc and facet disease, as well ligamentum flavum hypertrophy. 2. Grade I isthmic spondylolisthesis at L5-S1. 3. Severe bilateral L5-S1 foraminal stenosis, with associated flattening deformity of the L5 nerve roots in the neural foramina. Recommend correlation with clinical symptoms to ascertain relevance of this finding. 4. Mild canal and mild to moderate foraminal stenosis at the remaining levels. Treatment Goals Patient/Caregiver Goals Improve balance, find a way to cope better w/back, be able to yard work w/less repercussion; be able drive longer distances PT-OP-C Subjective Start: 06/12/23 17:14 Freq: Status: Active Protocol: Document 07/01/23 15:22 [facility] (Rec: 07/01/23 18:13 [facility] [id number]) OP-PT Subjective Patient Comments Patient Comments Pt reports hiking [place] after last time. Notes he felt much better hiking after session. Notes he felt looser for a couple days after PT-OP-D Balance Start: 06/12/23 17:14 Freq: Status: Active Protocol: Document 06/13/23 09:27 [facility] (Rec: 06/13/23 11:19 [facility] [id number]) Balance Tests Single Limb Standing Single Limb- Right 5 sec w/ lat lean over leg Single Limb- Left >30 sec w/hip ER PT-OP-E Functional Tests Start: 06/12/23 17:14 Freq: Status: Active Protocol: Document 06/17/23 08:03 [facility] (Rec: 06/17/23 14:07 [facility] [id number]) Functional Tests Functional Gait Assessment Functional Gait Assessment Impairment 20 to <40% Impaired (Score 19- Rating 24) PT-OP-F Manual Assessment Start: 06/12/23 17:14 Freq: Status: Active Protocol: Document 06/13/23 09:27 [facility] (Rec: 06/13/23 11:19 [facility] [id number]) Manual Assessments Joint Mobility Assessment Joint Mobility Assessment L iliac crest higher; equal greater trochanter B PT-OP-G Mobility & Gait Start: 06/12/23 17:14 Freq: Status: Active Protocol: Document 06/13/23 09:27 [facility] (Rec: 06/13/23 11:19 [facility] [id number]) OP Gait Assessment Comments Gait Comments gutter mouth cutter of RLE and lat lean w /wt acceptance on RLE; dec push off B PT-OP-J Posture/Palpation/Skin Start: 06/12/23 17:14 Freq: Status: Active Protocol: Document 06/13/23 09:27 [facility] (Rec: 06/13/23 11:19 [facility] [id number]) Posture Evaluation Tamara Postural Classification System Tamara Postural Classifications Posterior/Anterior Vertebral Compression Test 1 Lumbar Protective Mechanism Left AP 0 Lumbar Protective Mechanism Right AP 2 Lumbar Protective Mechanism Left PA 3 Comments Posture Comments L pelvic shear, L rot, L toe out, L shoulder higher, dec lordosis, inc upper tspine kyphosis PT-OP-K Range of Motion Start: 06/12/23 17:14 Freq: Status: Active Protocol: Document 06/13/23 09:27 [facility] (Rec: 06/13/23 11:19 [facility] [id number]) Lumbar Spine Range of Motion Lumbar Spine Active Percentage Flexion 50 Extension 20 Rotation Left 50 Rotation Right 75 Lateral Flexion Left 75 Lateral Flexion Right 50 ROM Limitations Pain PT-OP-L Special Tests Start: 06/12/23 17:14 Freq: Status: Active Protocol: Document 06/13/23 09:27 [facility] (Rec: 06/13/23 11:19 [facility] [id number]) Special Tests Lumbar Spine Special Tests Slump Comments some tightness in HS/calf L PT-OP-M Strength Start: 06/12/23 17:14 Freq: Status: Active Protocol: Document 06/13/23 09:27 [facility] (Rec: 06/13/23 11:19 [facility] [id number]) Hip Strength Hip Manual Muscle Testing Right Flexion (L2) 4 Good Extension (S1) 4- Good- Abduction 5 Normal External Rotation 4+ Good+ Internal Rotation 5 Normal Left Flexion (L2) 3+ Fair+ Extension (S1) 5 Normal Abduction 5 Normal External Rotation 3+ Fair+ Internal Rotation 5 Normal Knee Strength Knee Manual Muscle Testing Right Flexion (S2) 5 Normal Extension (L3) 5 Normal Left Flexion (S2) 5 Normal Extension (L3) 5 Normal Ankle/Foot Strength Ankle and Foot Manual Muscle Testing Right Dorsiflexion (L4) 5 Normal Plantarflexion (S1) 5 Normal Comments Dec R>L DF ROM; pain in lat foot w/heel raises Left Dorsiflexion (L4) 5 Normal Plantarflexion (S1) 5 Normal Comments 20 heel raises B PT-OP-Q Treatments Start: 06/12/23 17:14 Freq: Status: Active Protocol: Document 07/01/23 15:22 [facility] (Rec: 07/01/23 18:13 [facility] [id number]) Gym Equipment Shuttle Balance red clips Details balancing & wt shift Comments fwd and side: WBOS & NBOS fwd: staggered stance B Manual Therapy Treatment Soft Tissue Mobilization hip flexor Body Location iliacus Mobilization Type Sustained Pressure Intensity/Depth Moderate Comments w/heel slide Joint Mobilizations innominate Comments B flex FM; L ER FM hip Grade II Comments B inf FM; L ER free the ball FM Neuro Re-Education Treatment Balance Activities bosu Comments 1. standing balance blue side 2. squat x15 (partial) 3. step ups x10 B PT-OP-T Assessment and Plan Start: 06/12/23 17:14 Freq: Status: Active Protocol: Document 07/01/23 15:22 [facility] (Rec: 07/01/23 18:13 [facility] [id number]) Physical Therapy Assessment Goals posture Impairment VCT 1/5 Photographic Double Goal (LTG) Pt will improve VCT to at least 4/5 to show improved postural alignment to allow improved stability and dec pain. LTG Duration 09/05/23 strength Short Term Goal (STG) Pt will be indep w/hEP STG Duration 07/23/23 Long-Term Goal (LTG) Pt will score 5/5 on BLE MMT and at least 4/5 on LPM in all planes to show improved stability to improve balance and strength. LTG Duration 09/02/23 activity Short Term Goal (STG) Pt will be able to drive to his mailbox at post office without inc back pain. STG Duration 07/23/23 Photographic Double Goal (LTG) Pt will be able to drive for 1 hour and do yard/housework w/ o back pain greater than 3/10 LTG Duration 09/05/23 balance Short Term Goal (STG) Pt will be able to RLE SLS for at least 15 sec STG Duration 07/23/23 Long-Term Goal (LTG) Pt will be able to do SLS B w/ good alignment for 30 sec ea and at least 25/30 on FGA to show improved balance. LTG Duration 09/05/23 Assessment Summary Assessment Pt had mch improved B HIp flex and L ER after manual treatment today which should helpw /pt comfort in sitting as he was signfiicantly limited in ability to flex hips at start. Challenged by unstable surfaces Physical Therapy Plan Frequency and Duration Frequency of Treatment 2x/Week Duration of treatment (weeks) 12 Plan of Care Start Date 06/13/23 Plan of Care End Date 09/05/23 Next Visit Focus/Plan Next Note Type Treatment Note Next Visit Plan advance hip strength/balance manual to hips and pelvis and lumbar spine to dec pain and stiffness
--- NOTE | 2023-07-03 12:01 | PT.OTN ---
Current Diagnoses Low back pain, unspecified (07/03/23) Difficulty in walking, not elsewhere classified (07/03/23) Other abnormalities of gait and mobility (07/03/23) Abnormal posture (07/03/23) Weakness (07/03/23) Physical Therapy Treatment Note PT-OP-A Visit Information Start: 06/12/23 17:14 Freq: Status: Active Protocol: Document 07/03/23 08:06 AB (Rec: 07/03/23 12:01 AB [id number]) Out-Patient Physical Therapy Visit Information Visit Information Visit Type Treatment Note Visit Note 09/29 Access Code [email or web address] Visit Start Time 09:47 Visit Stop Time 10:29 Visit Number 6 Number of REQUISITION APPROVER Visits 1 PT-OP-B Current Condition Start: 06/12/23 17:14 Freq: Status: Active Protocol: Document 06/13/23 09:27 [facility] (Rec: 06/13/23 11:19 [facility] [id number]) Current Condition History of Current Condition Current Complaints back pain & dec balance History of Current Condition Pt reports he has had really good balance all his life and don't trust it anymore. he still occ climb ladders and occ is worried about it and gets slow and careful. He does have DDD in bottom 5 vertebrae and mult degenerative changes. His back is stiff a lot. He has done PT in the past and at this point has given up on finding a cure. Walks 3 miles 5 days a week and tries to stay active . Uses an inversion table to prn to avoid sciatica. His sense is his back affects his balance. Doing the exercises over several months, didn't help but back gets tired from his PT exercises. When back gets tired, he starts tog et pain radiating to his buttocks and into back of leg. does report neuropathy. Last chemo was 5 years ago and has had leukemia dx for 31 years. In remission right now and is still regularly checked. hx of B knee replacements. Cyst on liver and gallbadder removed along w/part of liver and gallbladder. Pt reports he feels like his balance started to decline about 5 years w/ last 2-3 years more pronounced . SItting up in a straight backed chair is painful. Drive 10-15 min and has trouble getting straightened up. 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 He used to use a lot of asprin and ibuprofen in the past but cannot use it anymore. Dizziness sometimes when standing to get of chair. Hx L hip replacement. Pt has hx of L MELBA. Prior Treatments and Tests 2018 MRI: IMPRESSION: 1. Multilevel degenerative disc and facet disease, as well ligamentum flavum hypertrophy. 2. Grade I isthmic spondylolisthesis at L5-S1. 3. Severe bilateral L5-S1 foraminal stenosis, with associated flattening deformity of the L5 nerve roots in the neural foramina. Recommend correlation with clinical symptoms to ascertain relevance of this finding. 4. Mild canal and mild to moderate foraminal stenosis at the remaining levels. Treatment Goals Patient/Caregiver Goals Improve balance, find a way to cope better w/back, be able to yard work w/less repercussion; be able drive longer distances PT-OP-C Subjective Start: 06/12/23 17:14 Freq: Status: Active Protocol: Document 07/03/23 08:06 AB (Rec: 07/03/23 12:01 [id number]) OP-PT Subjective Patient Comments Patient Comments Patient reports everything is a little better, less stiffness getting out of cars and chairs, but the same problems persist, still gets stiff but slightly less. PT-OP-D Balance Start: 06/12/23 17:14 Freq: Status: Active Protocol: Document 06/13/23 09:27 [facility] (Rec: 06/13/23 11:19 [facility] [id number]) Balance Tests Single Limb Standing Single Limb- Right 5 sec w/ lat lean over leg Single Limb- Left >30 sec w/hip ER PT-OP-E Functional Tests Start: 06/12/23 17:14 Freq: Status: Active Protocol: Document 06/17/23 08:03 AB (Rec: 06/17/23 14:07 AB [id number]) Functional Tests Functional Gait Assessment Functional Gait Assessment Impairment 20 to <40% Impaired (Score 19- Rating 24) PT-OP-F Manual Assessment Start: 06/12/23 17:14 Freq: Status: Active Protocol: Document 06/13/23 09:27 [facility] (Rec: 06/13/23 11:19 [facility] [id number]) Manual Assessments Joint Mobility Assessment Joint Mobility Assessment L iliac crest higher; equal greater trochanter B PT-OP-G Mobility & Gait Start: 06/12/23 17:14 Freq: Status: Active Protocol: Document 06/13/23 09:27 [facility] (Rec: 06/13/23 11:19 [facility] [id number]) OP Gait Assessment Comments Gait Comments laundry routeman of RLE and lat lean w /wt acceptance on RLE; dec push off B PT-OP-J Posture/Palpation/Skin Start: 06/12/23 17:14 Freq: Status: Active Protocol: Document 06/13/23 09:27 [facility] (Rec: 06/13/23 11:19 [facility] [id number]) Posture Evaluation Tamara Postural Classification System Tamara Postural Classifications Posterior/Anterior Vertebral Compression Test 1 Lumbar Protective Mechanism Left AP 0 Lumbar Protective Mechanism Right AP 2 Lumbar Protective Mechanism Left PA 3 Comments Posture Comments L pelvic shear, L rot, L toe out, L shoulder higher, dec lordosis, inc upper tspine kyphosis PT-OP-K Range of Motion Start: 06/12/23 17:14 Freq: Status: Active Protocol: Document 06/13/23 09:27 [facility] (Rec: 06/13/23 11:19 [facility] [id number]) Lumbar Spine Range of Motion Lumbar Spine Active Percentage Flexion 50 Extension 20 Rotation Left 50 Rotation Right 75 Lateral Flexion Left 75 Lateral Flexion Right 50 ROM Limitations Pain PT-OP-L Special Tests Start: 06/12/23 17:14 Freq: Status: Active Protocol: Document 06/13/23 09:27 [facility] (Rec: 06/13/23 11:19 [facility] [id number]) Special Tests Lumbar Spine Special Tests Slump Comments some tightness in HS/calf L PT-OP-M Strength Start: 06/12/23 17:14 Freq: Status: Active Protocol: Document 06/13/23 09:27 [facility] (Rec: 06/13/23 11:19 [facility] [id number]) Hip Strength Hip Manual Muscle Testing Right Flexion (L2) 4 Good Extension (S1) 4- Good- Abduction 5 Normal External Rotation 4+ Good+ Internal Rotation 5 Normal Left Flexion (L2) 3+ Fair+ Extension (S1) 5 Normal Abduction 5 Normal External Rotation 3+ Fair+ Internal Rotation 5 Normal Knee Strength Knee Manual Muscle Testing Right Flexion (S2) 5 Normal Extension (L3) 5 Normal Left Flexion (S2) 5 Normal Extension (L3) 5 Normal Ankle/Foot Strength Ankle and Foot Manual Muscle Testing Right Dorsiflexion (L4) 5 Normal Plantarflexion (S1) 5 Normal Comments Dec R>L DF ROM; pain in lat foot w/heel raises Left Dorsiflexion (L4) 5 Normal Plantarflexion (S1) 5 Normal Comments 20 heel raises B PT-OP-Q Treatments Start: 06/12/23 17:14 Freq: Status: Active Protocol: Document 07/03/23 08:06 AB (Rec: 07/03/23 12:01 [id number]) Therapeutic Exercises Supine Exercises piriformis stretch Side bilateral Reps/Minutes one minute each LE Comments post manual pre MET, Verbal cues for LE position hip flexor stretch edge of bed Side bilateral Reps/Minutes one minute each LE X 1 Comments post manual pre MET, Verbal cues for LE position Standing Exercises squat with band Side bilateral Equipment Used level 2 band Reps/Minutes 2X10 Comments VC to squat to a depth that does not increase pain AROM DF Reps/Minutes X10 Comments post calf stretch, verbal and visual cues Other Exercises Calf stretch on stair Side bilateral Equipment Used stair Reps/Minutes X3 with knees straight X 1 with knees bent not tim, feels it TC area Manual Therapy Treatment Soft Tissue Mobilization hip flexor Body Location at groin Mobilization Type Cross-Friction,Rolling Intensity/Depth Moderate LS nerve slacking bilateral glute/piriformis Body Location bilateral hip flexors and glute/piriformis this session Mobilization Type Cross-Friction,Rolling, Sustained Pressure Intensity/Depth Moderate Body Position Sidelying Comments performed prior to MET Manual Techniques MET for left AI right PI and pubic shotgun Body Position Hooklying Reps/Duration 6X6 each Comments Verbal cues, monitored for pain Neuro Re-Education Treatment Other Activities glute med activation Details level 2 band seated hip abduction Reps/Duration X1 one minute hold Comments Verbal cues PT-OP-T Assessment and Plan Start: 06/12/23 17:14 Freq: Status: Active Protocol: Document 07/03/23 08:06 (Rec: 07/03/23 12:01 [id number]) Physical Therapy Assessment Goals posture Impairment VCT 1/5 Correction Goal (LTG) Pt will improve VCT to at least 4/5 to show improved postural alignment to allow improved stability and dec pain. LTG Duration 09/05/23 strength Short Term Goal (STG) Pt will be indep w/hEP STG Duration 07/23/23 Correction Goal (LTG) Pt will score 5/5 on BLE MMT and at least 4/5 on LPM in all planes to show improved stability to improve balance and strength. LTG Duration 09/02/23 activity Short Term Goal (STG) Pt will be able to drive to his mailbox at post office without inc back pain. 07/03/2023 Patient reports having less pain when getting in and out of the car to get the mail. STG Duration 07/23/23 Correction Goal (LTG) Pt will be able to drive for 1 hour and do yard/housework w/ o back pain greater than 3/10 LTG Duration 09/05/23 balance Short Term Goal (STG) Pt will be able to RLE SLS for at least 15 sec STG Duration 07/23/23 Correction Goal (LTG) Pt will be able to do SLS B w/ good alignment for 30 sec ea and at least 25/30 on FGA to show improved balance. LTG Duration 09/05/23 Assessment Summary Assessment patient reports a twinge of pain right glute ( gestures to ) ambulating out of sesssion. Reports sensation TC area vs soleus during calf stretches. Physical Therapy Plan Frequency and Duration Frequency of Treatment 2x/Week Duration of treatment (weeks) 12 Plan of Care Start Date 06/13/23 Plan of Care End Date 09/05/23 Next Visit Focus/Plan Next Note Type Treatment Note Next Visit Plan advance hip strength/balance manual to hips and pelvis and lumbar spine to dec pain and stiffness, reassess tim to soleus stretch, possibly piriformis stretch to HEP.
--- NOTE | 2023-07-12 14:03 | PT.OTN ---
Current Diagnoses Low back pain, unspecified (07/12/23) Difficulty in walking, not elsewhere classified (07/12/23) Other abnormalities of gait and mobility (07/12/23) Abnormal posture (07/12/23) Weakness (07/12/23) Physical Therapy Treatment Note PT-OP-A Visit Information Start: 06/12/23 17:14 Freq: Status: Active Protocol: Document 07/12/23 12:54 AB (Rec: 07/12/23 14:03 AB [id number]) Out-Patient Physical Therapy Visit Information Visit Information Visit Type Treatment Note Visit Note 10/29 Access Code [email or web address] Visit Start Time 13:02 Visit Stop Time 13:50 Visit Number 7 Number of FORMWORK CARPENTER Visits 2 PT-OP-B Current Condition Start: 06/12/23 17:14 Freq: Status: Active Protocol: Document 06/13/23 09:27 [facility] (Rec: 06/13/23 11:19 [facility] [id number]) Current Condition History of Current Condition Current Complaints back pain & dec balance History of Current Condition Pt reports he has had really good balance all his life and don't trust it anymore. he still occ climb ladders and occ is worried about it and gets slow and careful. He does have DDD in bottom 5 vertebrae and mult degenerative changes. His back is stiff a lot. He has done PT in the past and at this point has given up on finding a cure. Walks 3 miles 5 days a week and tries to stay active . Uses an inversion table to prn to avoid sciatica. His sense is his back affects his balance. Doing the exercises over several months, didn't help but back gets tired from his PT exercises. When back gets tired, he starts tog et pain radiating to his buttocks and into back of leg. does report neuropathy. Last chemo was 5 years ago and has had leukemia dx for 31 years. In remission right now and is still regularly checked. hx of B knee replacements. Cyst on liver and gallbadder removed along w/part of liver and gallbladder. Pt reports he feels like his balance started to decline about 5 years w/ last 2-3 years more pronounced . SItting up in a straight backed chair is painful. Drive 10-15 min and has trouble getting straightened up. 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 He used to use a lot of asprin and ibuprofen in the past but cannot use it anymore. Dizziness sometimes when standing to get of chair. Hx L hip replacement. Pt has hx of L MELBA. Prior Treatments and Tests 2018 MRI: IMPRESSION: 1. Multilevel degenerative disc and facet disease, as well ligamentum flavum hypertrophy. 2. Grade I isthmic spondylolisthesis at L5-S1. 3. Severe bilateral L5-S1 foraminal stenosis, with associated flattening deformity of the L5 nerve roots in the neural foramina. Recommend correlation with clinical symptoms to ascertain relevance of this finding. 4. Mild canal and mild to moderate foraminal stenosis at the remaining levels. Treatment Goals Patient/Caregiver Goals Improve balance, find a way to cope better w/back, be able to yard work w/less repercussion; be able drive longer distances PT-OP-C Subjective Start: 06/12/23 17:14 Freq: Status: Active Protocol: Document 07/12/23 12:54 AB (Rec: 07/12/23 14:03 [id number]) OP-PT Subjective Patient Comments Patient Comments Patient reports he was in [place] initially walking with son 4 miles a day and was on a stiff bed and the back was more sore, then in a hotel with a better bed able to walk at his own pace decreased pain. L 11 R 8 single leg HR with UE support start of session. PT-OP-D Balance Start: 06/12/23 17:14 Freq: Status: Active Protocol: Document 06/13/23 09:27 [facility] (Rec: 06/13/23 11:19 [facility] [id number]) Balance Tests Single Limb Standing Single Limb- Right 5 sec w/ lat lean over leg Single Limb- Left >30 sec w/hip ER PT-OP-E Functional Tests Start: 06/12/23 17:14 Freq: Status: Active Protocol: Document 06/17/23 08:03 AB (Rec: 06/17/23 14:07 [id number]) Functional Tests Functional Gait Assessment Functional Gait Assessment Impairment 20 to <40% Impaired (Score 19- Rating 24) PT-OP-F Manual Assessment Start: 06/12/23 17:14 Freq: Status: Active Protocol: Document 06/13/23 09:27 [facility] (Rec: 06/13/23 11:19 [facility] [id number]) Manual Assessments Joint Mobility Assessment Joint Mobility Assessment L iliac crest higher; equal greater trochanter B PT-OP-G Mobility & Gait Start: 06/12/23 17:14 Freq: Status: Active Protocol: Document 06/13/23 09:27 [facility] (Rec: 06/13/23 11:19 [facility] [id number]) OP Gait Assessment Comments Gait Comments route clerk of RLE and lat lean w /wt acceptance on RLE; dec push off B PT-OP-J Posture/Palpation/Skin Start: 06/12/23 17:14 Freq: Status: Active Protocol: Document 06/13/23 09:27 [facility] (Rec: 06/13/23 11:19 [facility] [id number]) Posture Evaluation Tamara Postural Classification System Tamara Postural Classifications Posterior/Anterior Vertebral Compression Test 1 Lumbar Protective Mechanism Left AP 0 Lumbar Protective Mechanism Right AP 2 Lumbar Protective Mechanism Left PA 3 Comments Posture Comments L pelvic shear, L rot, L toe out, L shoulder higher, dec lordosis, inc upper tspine kyphosis PT-OP-K Range of Motion Start: 06/12/23 17:14 Freq: Status: Active Protocol: Document 06/13/23 09:27 [facility] (Rec: 06/13/23 11:19 [facility] [id number]) Lumbar Spine Range of Motion Lumbar Spine Active Percentage Flexion 50 Extension 20 Rotation Left 50 Rotation Right 75 Lateral Flexion Left 75 Lateral Flexion Right 50 ROM Limitations Pain PT-OP-L Special Tests Start: 06/12/23 17:14 Freq: Status: Active Protocol: Document 06/13/23 09:27 [facility] (Rec: 06/13/23 11:19 [facility] [id number]) Special Tests Lumbar Spine Special Tests Slump Comments some tightness in HS/calf L PT-OP-M Strength Start: 06/12/23 17:14 Freq: Status: Active Protocol: Document 06/13/23 09:27 [facility] (Rec: 06/13/23 11:19 [facility] [id number]) Hip Strength Hip Manual Muscle Testing Right Flexion (L2) 4 Good Extension (S1) 4- Good- Abduction 5 Normal External Rotation 4+ Good+ Internal Rotation 5 Normal Left Flexion (L2) 3+ Fair+ Extension (S1) 5 Normal Abduction 5 Normal External Rotation 3+ Fair+ Internal Rotation 5 Normal Knee Strength Knee Manual Muscle Testing Right Flexion (S2) 5 Normal Extension (L3) 5 Normal Left Flexion (S2) 5 Normal Extension (L3) 5 Normal Ankle/Foot Strength Ankle and Foot Manual Muscle Testing Right Dorsiflexion (L4) 5 Normal Plantarflexion (S1) 5 Normal Comments Dec R>L DF ROM; pain in lat foot w/heel raises Left Dorsiflexion (L4) 5 Normal Plantarflexion (S1) 5 Normal Comments 20 heel raises B PT-OP-Q Treatments Start: 06/12/23 17:14 Freq: Status: Active Protocol: Document 07/12/23 12:54 AB (Rec: 07/12/23 14:03 AB [id number]) Therapeutic Exercises Supine Exercises piriformis stretch Side bilateral Reps/Minutes one minute each LE Comments Verbal cues for LE position bent knee fall out with and without band Side bilateral Resistance level 2 teal band Reps/Minutes X10 without band X10 with band Comments Verbal cues to brace and move LE slowly Standing Exercises single leg heel raise Side bilateral Reps/Minutes X10 X 1 Comments Verbal cues to lower heels to floor slowly AROM DF Reps/Minutes X12 Comments post calf stretches, VC to lower to floor slowly Other Exercises Calf stretch on stair Side bilateral Equipment Used stair Reps/Minutes 60 seconds with knees bent and straight X 2 Comments monitored for location of sensation of stretch Manual Therapy Treatment Soft Tissue Mobilization hip flexor Body Location at groin Mobilization Type Cross-Friction,Rolling Intensity/Depth Moderate Comments w/heel slide LS nerve slacking bilateral glute/piriformis Body Location bilateral hip flexors and glute/piriformis this session Mobilization Type Cross-Friction,Rolling, Sustained Pressure Intensity/Depth Moderate Body Position Sidelying Comments with AROM IR Manual Techniques MET for left AI right PI and pubic shotgun Type MET Body Position Hooklying Reps/Duration 6X6 each Comments Verbal cues, monitored for pain PT-OP-T Assessment and Plan Start: 06/12/23 17:14 Freq: Status: Active Protocol: Document 07/12/23 12:54 AB (Rec: 07/12/23 14:03 AB [id number]) Physical Therapy Assessment Goals posture Impairment VCT 1/5 Label Tacker Goal (LTG) Pt will improve VCT to at least 4/5 to show improved postural alignment to allow improved stability and dec pain. LTG Duration 09/05/23 strength Short Term Goal (STG) Pt will be indep w/hEP STG Duration 07/23/23 Fci Goal (LTG) Pt will score 5/5 on BLE MMT and at least 4/5 on LPM in all planes to show improved stability to improve balance and strength. LTG Duration 09/02/23 activity Short Term Goal (STG) Pt will be able to drive to his mailbox at post office without inc back pain. 07/03/2023 Patient reports having less pain when getting in and out of the car to get the mail. STG Duration 07/23/23 Label Tacker Goal (LTG) Pt will be able to drive for 1 hour and do yard/housework w/ o back pain greater than 3/10 LTG Duration 09/05/23 balance Short Term Goal (STG) Pt will be able to RLE SLS for at least 15 sec STG Duration 07/23/23 Fci Goal (LTG) Pt will be able to do SLS B w/ good alignment for 30 sec ea and at least 25/30 on FGA to show improved balance. LTG Duration 09/05/23 Assessment Summary Assessment Patient reports feeling looser end os session. Patient reports feeling sensation in calf muscles vs TC area during soleus stretch this session. Physical Therapy Plan Frequency and Duration Frequency of Treatment 2x/Week Duration of treatment (weeks) 12 Plan of Care Start Date 06/13/23 Plan of Care End Date 09/05/23 Next Visit Focus/Plan Next Note Type Progress Note Next Visit Plan advance hip strength/balance manual to hips and pelvis and lumbar spine to dec pain and stiffness, possibly piriformis stretch to HEP, focus on balance, Stabilzation seated on ball.
--- NOTE | 2023-07-16 09:52 | PT.OTN ---
Current Diagnoses Low back pain, unspecified (07/16/23) Difficulty in walking, not elsewhere classified (07/16/23) Other abnormalities of gait and mobility (07/16/23) Abnormal posture (07/16/23) Weakness (07/16/23) Physical Therapy Treatment Note PT-OP-A Visit Information Start: 06/12/23 17:14 Freq: Status: Active Protocol: Document 07/16/23 09:04 [facility] (Rec: 07/16/23 09:50 [facility] [id number]) Out-Patient Physical Therapy Visit Information Visit Information Visit Type Progress Note Visit Note 05/01 Access Code [email or web address] Visit Start Time 09:05 Visit Stop Time 09:45 Visit Number 8 Number of APPLICATION DEFENSE MANAGER Visits 0 PT-OP-B Current Condition Start: 06/12/23 17:14 Freq: Status: Active Protocol: Document 06/13/23 09:27 [facility] (Rec: 06/13/23 11:19 [facility] [id number]) Current Condition History of Current Condition Current Complaints back pain & dec balance History of Current Condition Pt reports he has had really good balance all his life and don't trust it anymore. he still occ climb ladders and occ is worried about it and gets slow and careful. He does have DDD in bottom 5 vertebrae and mult degenerative changes. His back is stiff a lot. He has done PT in the past and at this point has given up on finding a cure. Walks 3 miles 5 days a week and tries to stay active . Uses an inversion table to prn to avoid sciatica. His sense is his back affects his balance. Doing the exercises over several months, didn't help but back gets tired from his PT exercises. When back gets tired, he starts tog et pain radiating to his buttocks and into back of leg. does report neuropathy. Last chemo was 5 years ago and has had leukemia dx for 31 years. In remission right now and is still regularly checked. hx of B knee replacements. Cyst on liver and gallbadder removed along w/part of liver and gallbladder. Pt reports he feels like his balance started to decline about 5 years w/ last 2-3 years more pronounced . SItting up in a straight backed chair is painful. Drive 10-15 min and has trouble getting straightened up. 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 He used to use a lot of asprin and ibuprofen in the past but cannot use it anymore. Dizziness sometimes when standing to get of chair. Hx L hip replacement. Pt has hx of L MELBA. Prior Treatments and Tests 2018 MRI: IMPRESSION: 1. Multilevel degenerative disc and facet disease, as well ligamentum flavum hypertrophy. 2. Grade I isthmic spondylolisthesis at L5-S1. 3. Severe bilateral L5-S1 foraminal stenosis, with associated flattening deformity of the L5 nerve roots in the neural foramina. Recommend correlation with clinical symptoms to ascertain relevance of this finding. 4. Mild canal and mild to moderate foraminal stenosis at the remaining levels. Treatment Goals Patient/Caregiver Goals Improve balance, find a way to cope better w/back, be able to yard work w/less repercussion; be able drive longer distances PT-OP-C Subjective Start: 06/12/23 17:14 Freq: Status: Active Protocol: Document 07/16/23 09:04 [facility] (Rec: 07/16/23 09:52 [facility] [id number]) OP-PT Subjective Patient Comments Patient Comments Pt reports pain has dec since starting PT Patient Reported Progress Improving PT-OP-D Balance Start: 06/12/23 17:14 Freq: Status: Active Protocol: Document 07/16/23 09:04 [facility] (Rec: 07/16/23 09:50 [facility] [id number]) Balance Tests Single Limb Standing Single Limb- Right 9 sec Single Limb- Left >30 sec PT-OP-E Functional Tests Start: 06/12/23 17:14 Freq: Status: Active Protocol: Document 06/17/23 08:03 [facility] (Rec: 06/17/23 14:07 AB [id number]) Functional Tests Functional Gait Assessment Functional Gait Assessment Impairment 20 to <40% Impaired (Score 19- Rating 24) PT-OP-F Manual Assessment Start: 06/12/23 17:14 Freq: Status: Active Protocol: Document 06/13/23 09:27 [facility] (Rec: 06/13/23 11:19 [facility] [id number]) Manual Assessments Joint Mobility Assessment Joint Mobility Assessment L iliac crest higher; equal greater trochanter B PT-OP-G Mobility & Gait Start: 06/12/23 17:14 Freq: Status: Active Protocol: Document 06/13/23 09:27 [facility] (Rec: 06/13/23 11:19 [facility] [id number]) OP Gait Assessment Comments Gait Comments residential youth counselor of RLE and lat lean w /wt acceptance on RLE; dec push off B PT-OP-J Posture/Palpation/Skin Start: 06/12/23 17:14 Freq: Status: Active Protocol: Document 07/16/23 09:04 [facility] (Rec: 07/16/23 09:50 [facility] [id number]) Posture Evaluation [facility] Postural Classification System Vertebral Compression Test 2 Lumbar Protective Mechanism Left AP 3 Lumbar Protective Mechanism Right AP 1 Lumbar Protective Mechanism Left PA 3 Lumbar Protective Mechanism Right PA 4 PT-OP-K Range of Motion Start: 06/12/23 17:14 Freq: Status: Active Protocol: Document 06/13/23 09:27 [facility] (Rec: 06/13/23 11:19 [facility] [id number]) Lumbar Spine Range of Motion Lumbar Spine Active Percentage Flexion 50 Extension 20 Rotation Left 50 Rotation Right 75 Lateral Flexion Left 75 Lateral Flexion Right 50 ROM Limitations Pain PT-OP-L Special Tests Start: 06/12/23 17:14 Freq: Status: Active Protocol: Document 06/13/23 09:27 [facility] (Rec: 06/13/23 11:19 [facility] [id number]) Special Tests Lumbar Spine Special Tests Slump Comments some tightness in HS/calf L PT-OP-M Strength Start: 06/12/23 17:14 Freq: Status: Active Protocol: Document 07/16/23 09:04 [facility] (Rec: 07/16/23 09:50 [facility] [id number]) Hip Strength Hip Manual Muscle Testing Right Flexion (L2) 4+ Good+ Extension (S1) 5 Normal Abduction 5 Normal Adduction 5 Normal External Rotation 5 Normal Internal Rotation 5 Normal Comments pain in back w/B ext Left Flexion (L2) 4- Good- Extension (S1) 5 Normal Abduction 5 Normal Adduction 5 Normal External Rotation 4- Good- Internal Rotation 5 Normal Comments pain in ant L hip w/flex and ER Knee Strength Knee Manual Muscle Testing Right Flexion (S2) 5 Normal Extension (L3) 5 Normal Left Flexion (S2) 5 Normal Extension (L3) 5 Normal PT-OP-Q Treatments Start: 06/12/23 17:14 Freq: Status: Active Protocol: Document 07/16/23 09:04 [facility] (Rec: 07/16/23 09:50 [facility] [id number]) Therapeutic Exercises Other Exercises isometrics Other Exercise Name MMT and LPM & SLS trials Side bilateral Reps/Minutes 8 min Manual Therapy Treatment Soft Tissue Mobilization hip flexor Body Location L iliacus proximal Mobilization Type Rolling,Sustained Pressure Intensity/Depth Moderate Comments w/AAROM hip flex Joint Mobilizations lumbar Comments PA in prone L4 adn 5 w/B knee flex R downglide L5; L4 down downglide L innominate Comments L flex FM; R ext FM hip Joint L Inf FM PT-OP-T Assessment and Plan Start: 06/12/23 17:14 Freq: Status: Active Protocol: Document 07/16/23 09:04 [facility] (Rec: 07/16/23 09:50 [facility] [id number]) Physical Therapy Assessment Goals posture Impairment VCT 1/5 Welder/Fitter Goal (LTG) Pt will improve VCT to at least 4/5 to show improved postural alignment to allow improved stability and dec pain. 07/15-improved to 2/5 LTG Duration 09/05/23 strength Short Term Goal (STG) Pt will be indep w/hEP STG Duration achieved advancing as able Welder/Fitter Goal (LTG) Pt will score 5/5 on BLE MMT and at least 4/5 on LPM in all planes to show improved stability to improve balance and strength. 07/15-improved LTG Duration 09/02/23 activity Short Term Goal (STG) Pt will be able to drive to his mailbox at post office without inc back pain. 07/03/2023 Patient reports having less pain when getting in and out of the car to get the mail. STG Duration 07/23/23 Intermediate Goal (LTG) Pt will be able to drive for 1 hour and do yard/housework w/ o back pain greater than 3/10 07/15-stiff after; went to [place] (3 hr) and it took about 10 min before felt he can walk-5/10 LTG Duration 09/05/23 balance Short Term Goal (STG) Pt will be able to RLE SLS for at least 15 sec 07/15-10 sec R; 30 sec L STG Duration 07/23/23 Welder/Fitter Goal (LTG) Pt will be able to do SLS B w/ good alignment for 30 sec ea and at least 25/30 on FGA to show improved balance. LTG Duration 09/05/23 Assessment Summary Assessment Pt had improved ability to ER w/improved strength to 4/5 w/o pain after manual. Improved L hip mobility and improved back ext after manual which should help w/abilityt o sit in car. Physical Therapy Plan Frequency and Duration Frequency of Treatment 2x/Week Duration of treatment (weeks) 12 Plan of Care Start Date 06/13/23 Plan of Care End Date 09/05/23 Therapeutic Interventions Therapeutic Interventions Balance Training,Gait Training ,Home Exercise Program,Joint Mobilizations,Manual Therapy, Neuromuscular Re-education, Orthotic/Prosthetic Management ,Patient/Caregiver Education, Self-Care/Home Management,Soft Tissue Mobilization,Taping, Therapeutic Activities, Therapeutic Exercises, Vestibular Rehabilitation Modalities Cold Pack/Ice Massage,Electric Stimulation,Hot Packs, Infrared Therapy,Traction- Mechanical,Ultrasound Next Visit Focus/Plan Next Note Type Treatment Note Next Visit Plan advance hip strength/balance manual to hips and pelvis and lumbar spine to dec pain and stiffness, possibly piriformis stretch to HEP, focus on balance, Stabilzation seated on ball.
--- NOTE | 2023-07-18 14:04 | PT.OTN ---
Current Diagnoses Low back pain, unspecified (07/18/23) Difficulty in walking, not elsewhere classified (07/18/23) Other abnormalities of gait and mobility (07/18/23) Abnormal posture (07/18/23) Weakness (07/18/23) Physical Therapy Treatment Note PT-OP-A Visit Information Start: 06/12/23 17:14 Freq: Status: Active Protocol: Document 07/18/23 10:34 [facility] (Rec: 07/18/23 11:17 AB [id number]) Out-Patient Physical Therapy Visit Information Visit Information Visit Type Treatment Note Visit Note 06/01 Access Code [email or web address] Visit Start Time 10:35 Visit Stop Time 11:16 Visit Number 9 Number of BOOK SEWER Visits 1 PT-OP-B Current Condition Start: 06/12/23 17:14 Freq: Status: Active Protocol: Document 06/13/23 09:27 [facility] (Rec: 06/13/23 11:19 [facility] [id number]) Current Condition History of Current Condition Current Complaints back pain & dec balance History of Current Condition Pt reports he has had really good balance all his life and don't trust it anymore. he still occ climb ladders and occ is worried about it and gets slow and careful. He does have DDD in bottom 5 vertebrae and mult degenerative changes. His back is stiff a lot. He has done PT in the past and at this point has given up on finding a cure. Walks 3 miles 5 days a week and tries to stay active . Uses an inversion table to prn to avoid sciatica. His sense is his back affects his balance. Doing the exercises over several months, didn't help but back gets tired from his PT exercises. When back gets tired, he starts tog et pain radiating to his buttocks and into back of leg. does report neuropathy. Last chemo was 5 years ago and has had leukemia dx for 31 years. In remission right now and is still regularly checked. hx of B knee replacements. Cyst on liver and gallbadder removed along w/part of liver and gallbladder. Pt reports he feels like his balance started to decline about 5 years w/ last 2-3 years more pronounced . SItting up in a straight backed chair is painful. Drive 10-15 min and has trouble getting straightened up. 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 He used to use a lot of asprin and ibuprofen in the past but cannot use it anymore. Dizziness sometimes when standing to get of chair. Hx L hip replacement. Pt has hx of L MELBA. Prior Treatments and Tests 2018 MRI: IMPRESSION: 1. Multilevel degenerative disc and facet disease, as well ligamentum flavum hypertrophy. 2. Grade I isthmic spondylolisthesis at L5-S1. 3. Severe bilateral L5-S1 foraminal stenosis, with associated flattening deformity of the L5 nerve roots in the neural foramina. Recommend correlation with clinical symptoms to ascertain relevance of this finding. 4. Mild canal and mild to moderate foraminal stenosis at the remaining levels. Treatment Goals Patient/Caregiver Goals Improve balance, find a way to cope better w/back, be able to yard work w/less repercussion; be able drive longer distances PT-OP-C Subjective Start: 06/12/23 17:14 Freq: Status: Active Protocol: Document 07/18/23 10:34 [facility] (Rec: 07/18/23 11:17 [id number]) OP-PT Subjective Patient Comments Patient Comments Patient reports he is having less pain, less severe, rates pain 4/10 back. Patient reports he was able to work in the garden and didn't need Tylenol which he ususally needs post doing that much gardening. PT-OP-D Balance Start: 06/12/23 17:14 Freq: Status: Active Protocol: Document 07/16/23 09:04 [facility] (Rec: 07/16/23 09:50 [facility] [id number]) Balance Tests Single Limb Standing Single Limb- Right 9 sec Single Limb- Left >30 sec PT-OP-E Functional Tests Start: 06/12/23 17:14 Freq: Status: Active Protocol: Document 06/17/23 08:03 [facility] (Rec: 06/17/23 14:07 AB [id number]) Functional Tests Functional Gait Assessment Functional Gait Assessment Impairment 20 to <40% Impaired (Score 19- Rating 24) PT-OP-F Manual Assessment Start: 06/12/23 17:14 Freq: Status: Active Protocol: Document 06/13/23 09:27 [facility] (Rec: 06/13/23 11:19 [facility] [id number]) Manual Assessments Joint Mobility Assessment Joint Mobility Assessment L iliac crest higher; equal greater trochanter B PT-OP-G Mobility & Gait Start: 06/12/23 17:14 Freq: Status: Active Protocol: Document 06/13/23 09:27 [facility] (Rec: 06/13/23 11:19 [facility] [id number]) OP Gait Assessment Comments Gait Comments 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 of 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 and lat lean w /wt acceptance on RLE; dec push off B PT-OP-J Posture/Palpation/Skin Start: 06/12/23 17:14 Freq: Status: Active Protocol: Document 07/16/23 09:04 [facility] (Rec: 07/16/23 09:50 [facility] [id number]) Posture Evaluation [facility] Postural Classification System Vertebral Compression Test 2 Lumbar Protective Mechanism Left AP 3 Lumbar Protective Mechanism Right AP 1 Lumbar Protective Mechanism Left PA 3 Lumbar Protective Mechanism Right PA 4 PT-OP-K Range of Motion Start: 06/12/23 17:14 Freq: Status: Active Protocol: Document 06/13/23 09:27 [facility] (Rec: 06/13/23 11:19 [facility] [id number]) Lumbar Spine Range of Motion Lumbar Spine Active Percentage Flexion 50 Extension 20 Rotation Left 50 Rotation Right 75 Lateral Flexion Left 75 Lateral Flexion Right 50 ROM Limitations Pain PT-OP-L Special Tests Start: 06/12/23 17:14 Freq: Status: Active Protocol: Document 06/13/23 09:27 [facility] (Rec: 06/13/23 11:19 [facility] [id number]) Special Tests Lumbar Spine Special Tests Slump Comments some tightness in HS/calf L PT-OP-M Strength Start: 06/12/23 17:14 Freq: Status: Active Protocol: Document 07/16/23 09:04 [facility] (Rec: 07/16/23 09:50 [facility] [id number]) Hip Strength Hip Manual Muscle Testing Right Flexion (L2) 4+ Good+ Extension (S1) 5 Normal Abduction 5 Normal Adduction 5 Normal External Rotation 5 Normal Internal Rotation 5 Normal Comments pain in back w/B ext Left Flexion (L2) 4- Good- Extension (S1) 5 Normal Abduction 5 Normal Adduction 5 Normal External Rotation 4- Good- Internal Rotation 5 Normal Comments pain in ant L hip w/flex and ER Knee Strength Knee Manual Muscle Testing Right Flexion (S2) 5 Normal Extension (L3) 5 Normal Left Flexion (S2) 5 Normal Extension (L3) 5 Normal PT-OP-Q Treatments Start: 06/12/23 17:14 Freq: Status: Active Protocol: Document 07/18/23 10:34 [facility] (Rec: 07/18/23 11:17 AB [id number]) Therapeutic Exercises Supine Exercises piriformis stretch Side bilateral Reps/Minutes one minute each LE Comments Verbal cues for LE position hip flexor stretch edge of bed Side bilateral Reps/Minutes one minute each LE X 1 Comments post manual pre MET, Verbal cues for LE position Sitting Exercises seated marching on ball Sitting Exercise Name close supervision Side bilateral Reps/Minutes X10 Comments verbal cues Manual Therapy Treatment Soft Tissue Mobilization hip flexor Body Location bilateral this session iliacus proximal Mobilization Type Cross-Friction,Rolling, Sustained Pressure Intensity/Depth Moderate Body Position Hooklying LS nerve slacking bilateral glute/piriformis Body Location bilateral this session Mobilization Type Cross-Friction,Rolling, Sustained Pressure Intensity/Depth Moderate Body Position Sidelying Joint Mobilizations lumbar Grade III Reps/Duration IIIX 8 then IX5 Comments PA prone Lumbar Vertebrae hip Joint bilateral Inf FM Grade III Body Position Hooklying PT-OP-T Assessment and Plan Start: 06/12/23 17:14 Freq: Status: Active Protocol: Document 07/18/23 10:34 [facility] (Rec: 07/18/23 11:17 AB [id number]) Physical Therapy Assessment Goals posture Impairment VCT 1/ Penitentiary Goal (LTG) Pt will improve VCT to at least 4/5 to show improved postural alignment to allow improved stability and dec pain. 07/15-improved to 2/5 LTG Duration 09/05/23 strength Short Term Goal (STG) Pt will be indep w/hEP STG Duration achieved advancing as able Parts Analyst Goal (LTG) Pt will score 5/5 on BLE MMT and at least 4/5 on LPM in all planes to show improved stability to improve balance and strength. 07/15-improved LTG Duration 09/02/23 activity Short Term Goal (STG) Pt will be able to drive to his mailbox at post office without inc back pain. 07/03/2023 Patient reports having less pain when getting in and out of the car to get the mail. STG Duration 07/23/23 Parts Analyst Goal (LTG) Pt will be able to drive for 1 hour and do yard/housework w/ o back pain greater than 3/10 07/15-stiff after; went to [place] (3 hr) and it took about 10 min before felt he can walk-08/29 LTG Duration 09/05/23 balance Short Term Goal (STG) Pt will be able to RLE SLS for at least 15 sec 07/15-10 sec R; 30 sec L STG Duration 07/23/23 Parts Analyst Goal (LTG) Pt will be able to do SLS B w/ good alignment for 30 sec ea and at least 25/30 on FGA to show improved balance. LTG Duration 09/05/23 Assessment Summary Assessment Nicholas rates back pain 3 end of session, was able to hold position on ball well with seated marching. Piriformis stretch not yet added to HEP due to increased pain with left LE piriformis stretch in hooklying. Physical Therapy Plan Frequency and Duration Frequency of Treatment 2x/Week Duration of treatment (weeks) 12 Plan of Care Start Date 06/13/23 Plan of Care End Date 09/05/23 Next Visit Focus/Plan Next Note Type Treatment Note Next Visit Plan advance hip strength/balance manual to hips and pelvis and lumbar spine to dec pain and stiffness, possibly piriformis stretch to HEP, focus on balance, Stabilzation seated on ball.
--- NOTE | 2023-07-24 11:58 | PT.OTN ---
Current Diagnoses Low back pain, unspecified (07/24/23) Difficulty in walking, not elsewhere classified (07/24/23) Other abnormalities of gait and mobility (07/24/23) Abnormal posture (07/24/23) Weakness (07/24/23) Physical Therapy Treatment Note PT-OP-A Visit Information Start: 06/12/23 17:14 Freq: Status: Active Protocol: Document 07/24/23 10:31 AB (Rec: 07/24/23 11:17 AB [id number]) Out-Patient Physical Therapy Visit Information Visit Information Visit Type Treatment Note Visit Note 06/29 Access Code [email or web address] Visit Start Time 10:33 Visit Stop Time 11:15 Visit Number 10 Number of SPIRAL BINDER Visits 2 PT-OP-B Current Condition Start: 06/12/23 17:14 Freq: Status: Active Protocol: Document 06/13/23 09:27 [facility] (Rec: 06/13/23 11:19 [facility] [id number]) Current Condition History of Current Condition Current Complaints back pain & dec balance History of Current Condition Pt reports he has had really good balance all his life and don't trust it anymore. he still occ climb ladders and occ is worried about it and gets slow and careful. He does have DDD in bottom 5 vertebrae and mult degenerative changes. His back is stiff a lot. He has done PT in the past and at this point has given up on finding a cure. Walks 3 miles 5 days a week and tries to stay active . Uses an inversion table to prn to avoid sciatica. His sense is his back affects his balance. Doing the exercises over several months, didn't help but back gets tired from his PT exercises. When back gets tired, he starts tog et pain radiating to his buttocks and into back of leg. does report neuropathy. Last chemo was 5 years ago and has had leukemia dx for 31 years. In remission right now and is still regularly checked. hx of B knee replacements. Cyst on liver and gallbadder removed along w/part of liver and gallbladder. Pt reports he feels like his balance started to decline about 5 years w/ last 2-3 years more pronounced . SItting up in a straight backed chair is painful. Drive 10-15 min and has trouble getting straightened up. 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 He used to use a lot of asprin and ibuprofen in the past but cannot use it anymore. Dizziness sometimes when standing to get of chair. Hx L hip replacement. Pt has hx of L MELBA. Prior Treatments and Tests 2018 MRI: IMPRESSION: 1. Multilevel degenerative disc and facet disease, as well ligamentum flavum hypertrophy. 2. Grade I isthmic spondylolisthesis at L5-S1. 3. Severe bilateral L5-S1 foraminal stenosis, with associated flattening deformity of the L5 nerve roots in the neural foramina. Recommend correlation with clinical symptoms to ascertain relevance of this finding. 4. Mild canal and mild to moderate foraminal stenosis at the remaining levels. Treatment Goals Patient/Caregiver Goals Improve balance, find a way to cope better w/back, be able to yard work w/less repercussion; be able drive longer distances PT-OP-C Subjective Start: 06/12/23 17:14 Freq: Status: Active Protocol: Document 07/24/23 10:31 AB (Rec: 07/24/23 11:17 [id number]) OP-PT Subjective Patient Comments Patient Comments Patient reports having increased knee pain post ascending a step at nephews yesterday, comments knee was sore post walking more on vacation. Patient reports not tolerating walking with spouse due to knee pain. (ascends with quad dominant pattern, reports no pain with glute activation and improvement in pattern) PT-OP-D Balance Start: 06/12/23 17:14 Freq: Status: Active Protocol: Document 07/16/23 09:04 [facility] (Rec: 07/16/23 09:50 [facility] [id number]) Balance Tests Single Limb Standing Single Limb- Right 9 sec Single Limb- Left >30 sec PT-OP-E Functional Tests Start: 06/12/23 17:14 Freq: Status: Active Protocol: Document 06/17/23 08:03 AB (Rec: 06/17/23 14:07 [id number]) Functional Tests Functional Gait Assessment Functional Gait Assessment Impairment 20 to <40% Impaired (Score 19- Rating 24) PT-OP-F Manual Assessment Start: 06/12/23 17:14 Freq: Status: Active Protocol: Document 06/13/23 09:27 [facility] (Rec: 06/13/23 11:19 [facility] [id number]) Manual Assessments Joint Mobility Assessment Joint Mobility Assessment L iliac crest higher; equal greater trochanter B PT-OP-G Mobility & Gait Start: 06/12/23 17:14 Freq: Status: Active Protocol: Document 06/13/23 09:27 [facility] (Rec: 06/13/23 11:19 [facility] [id number]) OP Gait Assessment Comments Gait Comments 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 operator of RLE and lat lean w /wt acceptance on RLE; dec push off B PT-OP-J Posture/Palpation/Skin Start: 06/12/23 17:14 Freq: Status: Active Protocol: Document 07/16/23 09:04 [facility] (Rec: 07/16/23 09:50 [facility] [id number]) Posture Evaluation Tamara Postural Classification System Vertebral Compression Test 2 Lumbar Protective Mechanism Left AP 3 Lumbar Protective Mechanism Right AP 1 Lumbar Protective Mechanism Left PA 3 Lumbar Protective Mechanism Right PA 4 PT-OP-K Range of Motion Start: 06/12/23 17:14 Freq: Status: Active Protocol: Document 06/13/23 09:27 [facility] (Rec: 06/13/23 11:19 [facility] [id number]) Lumbar Spine Range of Motion Lumbar Spine Active Percentage Flexion 50 Extension 20 Rotation Left 50 Rotation Right 75 Lateral Flexion Left 75 Lateral Flexion Right 50 ROM Limitations Pain PT-OP-L Special Tests Start: 06/12/23 17:14 Freq: Status: Active Protocol: Document 06/13/23 09:27 [facility] (Rec: 06/13/23 11:19 [facility] [id number]) Special Tests Lumbar Spine Special Tests Slump Comments some tightness in HS/calf L PT-OP-M Strength Start: 06/12/23 17:14 Freq: Status: Active Protocol: Document 07/16/23 09:04 [facility] (Rec: 07/16/23 09:50 [facility] [id number]) Hip Strength Hip Manual Muscle Testing Right Flexion (L2) 4+ Good+ Extension (S1) 5 Normal Abduction 5 Normal Adduction 5 Normal External Rotation 5 Normal Internal Rotation 5 Normal Comments pain in back w/B ext Left Flexion (L2) 4- Good- Extension (S1) 5 Normal Abduction 5 Normal Adduction 5 Normal External Rotation 4- Good- Internal Rotation 5 Normal Comments pain in ant L hip w/flex and ER Knee Strength Knee Manual Muscle Testing Right Flexion (S2) 5 Normal Extension (L3) 5 Normal Left Flexion (S2) 5 Normal Extension (L3) 5 Normal PT-OP-Q Treatments Start: 06/12/23 17:14 Freq: Status: Active Protocol: Document 07/24/23 10:31 AB (Rec: 07/24/23 11:17 AB [id number]) Therapeutic Exercises Supine Exercises piriformis stretch Side bilateral Reps/Minutes one minute each LE Comments Verbal cues for LE position hip flexor stretch edge of bed Side bilateral Reps/Minutes one minute each LE X 1 Comments post manual pre MET, Verbal cues for LE position Standing Exercises single leg heel raise Standing Exercise Name single not tim, bilateral this session and on HEP Side bilateral Reps/Minutes X1 single then bilateral X 10 Comments Verbal cues to lower heels to floor slowly squat with band Standing Exercise Name 1/2 to chair seat Side bilateral Equipment Used level 2 band Reps/Minutes 2X10 Comments HEP modified to 1/2 to chair seat due to knee pain with sit to stand sit to stand Standing Exercise Name 1. chair Side bilateral Reps/Minutes 1 Comments reports increased right knee pain, HEP modified to 1/2 to chair squat Other Exercises Calf stretch on stair Side bilateral Equipment Used stair Reps/Minutes 60 seconds with knees bent and straight X 1 Comments monitored for location of sensation of stretch Therapeutic Activity Therapeutic Activity Stair training Comments 4 steps X 2 with rails, verbal and visual cues for less quad dominant pattern and VC to activate gluteal muscles when ascending. Manual Therapy Treatment Soft Tissue Mobilization left piriformis Body Location left Mobilization Type Cross-Friction,Rolling Intensity/Depth Moderate Comments prior to stretch hip flexor Body Location left this session iliacus proximal Mobilization Type Cross-Friction,Rolling, Sustained Pressure Intensity/Depth Moderate Body Position Hooklying LS nerve slacking bilateral glute/piriformis Body Location left this session Mobilization Type Cross-Friction,Rolling, Sustained Pressure Intensity/Depth Moderate Body Position Sidelying Manual Techniques left hip contract relax into IR Reps/Duration X1 60 seconds Comments verbal cues MET for left AI right PI and pubic shotgun Type MET Body Location SI Body Position Hooklying Reps/Duration 6X6 each Comments Verbal cues, monitored for pain PT-OP-T Assessment and Plan Start: 06/12/23 17:14 Freq: Status: Active Protocol: Document 07/24/23 10:31 AB (Rec: 07/24/23 11:17 AB [id number]) Physical Therapy Assessment Goals posture Impairment VCT 1/ Snf Goal (LTG) Pt will improve VCT to at least 4/5 to show improved postural alignment to allow improved stability and dec pain. 07/15-improved to 2/5 LTG Duration 09/05/23 strength Short Term Goal (STG) Pt will be indep w/hEP STG Duration achieved advancing as able Pharmacy Sales Representative Goal (LTG) Pt will score 5/5 on BLE MMT and at least 4/5 on LPM in all planes to show improved stability to improve balance and strength. 07/15-improved LTG Duration 09/02/23 activity Short Term Goal (STG) Pt will be able to drive to his mailbox at post office without inc back pain. 07/03/2023 Patient reports having less pain when getting in and out of the car to get the mail. STG Duration 07/23/23 Snf Goal (LTG) Pt will be able to drive for 1 hour and do yard/housework w/ o back pain greater than 3/10 07/15-stiff after; went to [place] (3 hr) and it took about 10 min before felt he can walk-5/10 LTG Duration 09/05/23 balance Short Term Goal (STG) Pt will be able to RLE SLS for at least 15 sec 07/15-10 sec R; 30 sec L STG Duration 07/23/23 Snf Goal (LTG) Pt will be able to do SLS B w/ good alignment for 30 sec ea and at least 25/30 on FGA to show improved balance. LTG Duration 09/05/23 Assessment Summary Assessment Patient reports feeling better end of session, reports no pain right knee ascending stairs with glute activation and increased hip hinge, but does have pain with sit to stand with band exercise and single leg HR which required modification to HEP. Physical Therapy Plan Frequency and Duration Frequency of Treatment 2x/Week Duration of treatment (weeks) 12 Plan of Care Start Date 06/13/23 Plan of Care End Date 09/05/23 Therapeutic Interventions Therapeutic Interventions Balance Training,Gait Training ,Home Exercise Program,Joint Mobilizations,Manual Therapy, Neuromuscular Re-education, Orthotic/Prosthetic Management ,Patient/Caregiver Education, Self-Care/Home Management,Soft Tissue Mobilization,Taping, Therapeutic Activities, Therapeutic Exercises, Vestibular Rehabilitation Next Visit Focus/Plan Next Note Type Treatment Note Next Visit Plan advance hip strength/balance manual to hips and pelvis and lumbar spine to dec pain and stiffness, focus on balance, Stabilzation seated on ball. Possibly taping
--- NOTE | 2023-07-31 12:18 | PT.OTN ---
Current Diagnoses Low back pain, unspecified (07/31/23) Difficulty in walking, not elsewhere classified (07/31/23) Other abnormalities of gait and mobility (07/31/23) Abnormal posture (07/31/23) Weakness (07/31/23) Physical Therapy Treatment Note PT-OP-A Visit Information Start: 06/12/23 17:14 Freq: Status: Active Protocol: Document 07/31/23 10:36 [facility] (Rec: 07/31/23 12:18 [facility] [id number]) Out-Patient Physical Therapy Visit Information Visit Information Visit Type Treatment Note Visit Note 07/30 Access Code [email or web address] Visit Start Time 10:35 Visit Stop Time 11:15 Visit Number 11 Number of SILVERWARE WASHER Visits 0 PT-OP-B Current Condition Start: 06/12/23 17:14 Freq: Status: Active Protocol: Document 06/13/23 09:27 [facility] (Rec: 06/13/23 11:19 [facility] [id number]) Current Condition History of Current Condition Current Complaints back pain & dec balance History of Current Condition Pt reports he has had really good balance all his life and don't trust it anymore. he still occ climb ladders and occ is worried about it and gets slow and careful. He does have DDD in bottom 5 vertebrae and mult degenerative changes. His back is stiff a lot. He has done PT in the past and at this point has given up on finding a cure. Walks 3 miles 5 days a week and tries to stay active . Uses an inversion table to prn to avoid sciatica. His sense is his back affects his balance. Doing the exercises over several months, didn't help but back gets tired from his PT exercises. When back gets tired, he starts tog et pain radiating to his buttocks and into back of leg. does report neuropathy. Last chemo was 5 years ago and has had leukemia dx for 31 years. In remission right now and is still regularly checked. hx of B knee replacements. Cyst on liver and gallbadder removed along w/part of liver and gallbladder. Pt reports he feels like his balance started to decline about 5 years w/ last 2-3 years more pronounced . SItting up in a straight backed chair is painful. Drive 10-15 min and has trouble getting straightened up. 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 He used to use a lot of asprin and ibuprofen in the past but cannot use it anymore. Dizziness sometimes when standing to get of chair. Hx L hip replacement. Pt has hx of L MELBA. Prior Treatments and Tests 2018 MRI: IMPRESSION: 1. Multilevel degenerative disc and facet disease, as well ligamentum flavum hypertrophy. 2. Grade I isthmic spondylolisthesis at L5-S1. 3. Severe bilateral L5-S1 foraminal stenosis, with associated flattening deformity of the L5 nerve roots in the neural foramina. Recommend correlation with clinical symptoms to ascertain relevance of this finding. 4. Mild canal and mild to moderate foraminal stenosis at the remaining levels. Treatment Goals Patient/Caregiver Goals Improve balance, find a way to cope better w/back, be able to yard work w/less repercussion; be able drive longer distances PT-OP-C Subjective Start: 06/12/23 17:14 Freq: Status: Active Protocol: Document 07/31/23 10:36 [facility] (Rec: 07/31/23 12:18 [facility] [id number]) OP-PT Subjective Patient Comments Patient Comments pt reprots knee is a little better but not great. Bought a brace and that seems to help. He has not done his 3 miles. been doing voltaren and ice. PT-OP-D Balance Start: 06/12/23 17:14 Freq: Status: Active Protocol: Document 07/16/23 09:04 [facility] (Rec: 07/16/23 09:50 [facility] [id number]) Balance Tests Single Limb Standing Single Limb- Right 9 sec Single Limb- Left >30 sec PT-OP-E Functional Tests Start: 06/12/23 17:14 Freq: Status: Active Protocol: Document 06/17/23 08:03 AB (Rec: 06/17/23 14:07 AB [id number]) Functional Tests Functional Gait Assessment Functional Gait Assessment Impairment 20 to <40% Impaired (Score 19- Rating 24) PT-OP-F Manual Assessment Start: 06/12/23 17:14 Freq: Status: Active Protocol: Document 06/13/23 09:27 [facility] (Rec: 06/13/23 11:19 [facility] [id number]) Manual Assessments Joint Mobility Assessment Joint Mobility Assessment L iliac crest higher; equal greater trochanter B PT-OP-G Mobility & Gait Start: 06/12/23 17:14 Freq: Status: Active Protocol: Document 06/13/23 09:27 [facility] (Rec: 06/13/23 11:19 [facility] [id number]) OP Gait Assessment Comments Gait Comments set up and lay out inspector of RLE and lat lean w /wt acceptance on RLE; dec push off B PT-OP-J Posture/Palpation/Skin Start: 06/12/23 17:14 Freq: Status: Active Protocol: Document 07/16/23 09:04 [facility] (Rec: 07/16/23 09:50 [facility] [id number]) Posture Evaluation Tamara Postural Classification System Vertebral Compression Test 2 Lumbar Protective Mechanism Left AP 3 Lumbar Protective Mechanism Right AP 1 Lumbar Protective Mechanism Left PA 3 Lumbar Protective Mechanism Right PA 4 PT-OP-K Range of Motion Start: 06/12/23 17:14 Freq: Status: Active Protocol: Document 06/13/23 09:27 [facility] (Rec: 06/13/23 11:19 [facility] [id number]) Lumbar Spine Range of Motion Lumbar Spine Active Percentage Flexion 50 Extension 20 Rotation Left 50 Rotation Right 75 Lateral Flexion Left 75 Lateral Flexion Right 50 ROM Limitations Pain PT-OP-L Special Tests Start: 06/12/23 17:14 Freq: Status: Active Protocol: Document 06/13/23 09:27 [facility] (Rec: 06/13/23 11:19 [facility] [id number]) Special Tests Lumbar Spine Special Tests Slump Comments some tightness in HS/calf L PT-OP-M Strength Start: 06/12/23 17:14 Freq: Status: Active Protocol: Document 07/16/23 09:04 [facility] (Rec: 07/16/23 09:50 [facility] [id number]) Hip Strength Hip Manual Muscle Testing Right Flexion (L2) 4+ Good+ Extension (S1) 5 Normal Abduction 5 Normal Adduction 5 Normal External Rotation 5 Normal Internal Rotation 5 Normal Comments pain in back w/B ext Left Flexion (L2) 4- Good- Extension (S1) 5 Normal Abduction 5 Normal Adduction 5 Normal External Rotation 4- Good- Internal Rotation 5 Normal Comments pain in ant L hip w/flex and ER Knee Strength Knee Manual Muscle Testing Right Flexion (S2) 5 Normal Extension (L3) 5 Normal Left Flexion (S2) 5 Normal Extension (L3) 5 Normal PT-OP-Q Treatments Start: 06/12/23 17:14 Freq: Status: Active Protocol: Document 07/31/23 10:36 [facility] (Rec: 07/31/23 12:18 [facility] [id number]) Therapeutic Exercises Sitting Exercises tennis ball Sitting Exercise Name glutes Side right Reps/Minutes 4 min Comments work w/knee ext stabilization Sitting Exercise Name rhythmic stabilization Side bilateral Reps/Minutes 4 min Manual Therapy Treatment Soft Tissue Mobilization left piriformis Body Location left Mobilization Type Rolling Intensity/Depth Moderate Body Position Sidelying Comments w/sciatic n glide LB Body Location ES R Mobilization Type Rolling,Strumming Intensity/Depth Moderate Body Position Sidelying Joint Mobilizations thoracic Comments transverse R T3-4 FM ribs Comments external torsion L ribs 5-7 FM Self-Care/Home Management Treatment Education Other Education 6 min: edu re: n tension and hwo that can affect knee pain; edu on use of tennis ball to glutes PT-OP-T Assessment and Plan Start: 06/12/23 17:14 Freq: Status: Active Protocol: Document 07/31/23 10:36 [facility] (Rec: 07/31/23 12:18 [facility] [id number]) Physical Therapy Assessment Goals posture Impairment VCT 04/26 Instructional Coordinator Goal (LTG) Pt will improve VCT to at least 4/5 to show improved postural alignment to allow improved stability and dec pain. 07/15-improved to 2/5 LTG Duration 09/05/23 strength Short Term Goal (STG) Pt will be indep w/hEP STG Duration achieved advancing as able Senior Care Goal (LTG) Pt will score 5/5 on BLE MMT and at least 4/5 on LPM in all planes to show improved stability to improve balance and strength. 07/15-improved LTG Duration 09/02/23 activity Short Term Goal (STG) Pt will be able to drive to his mailbox [place] office without inc back pain. 07/03/2023 Patient reports having less pain when getting in and out of the car to get the mail. STG Duration 07/23/23 Instructional Coordinator Goal (LTG) Pt will be able to drive for 1 hour and do yard/housework w/ o back pain greater than 3/10 07/15-stiff after; went to [place] (3 hr) and it took about 10 min before felt he can walk-5/10 LTG Duration 09/05/23 balance Short Term Goal (STG) Pt will be able to RLE SLS for at least 15 sec 07/15-10 sec R; 30 sec L STG Duration 07/23/23 Instructional Coordinator Goal (LTG) Pt will be able to do SLS B w/ good alignment for 30 sec ea and at least 25/30 on FGA to show improved balance. LTG Duration 09/05/23 Assessment Summary Assessment Pt did have positive R SLR that inc knee pain at start of session which improved after manual care to piriformis. He did still note some pain at end of session but educated to cont stretcehs from last session and tennis ball to glutes. Physical Therapy Plan Frequency and Duration Frequency of Treatment 2x/Week Duration of treatment (weeks) 12 Plan of Care Start Date 06/13/23 Plan of Care End Date 09/05/23 Next Visit Focus/Plan Next Note Type Treatment Note Next Visit Plan advance hip strength/balance manual to hips and pelvis and lumbar spine to dec pain and stiffness, focus on balance, Stabilzation seated on ball. Possibly taping
--- NOTE | 2023-08-07 15:15 | PT.OTN ---
Current Diagnoses Low back pain, unspecified (08/07/23) Difficulty in walking, not elsewhere classified (08/07/23) Other abnormalities of gait and mobility (08/07/23) Abnormal posture (08/07/23) Weakness (08/07/23) Physical Therapy Treatment Note PT-OP-A Visit Information Start: 06/12/23 17:14 Freq: Status: Active Protocol: Document 08/07/23 08:11 AB (Rec: 08/07/23 15:15 AB [id number]) Out-Patient Physical Therapy Visit Information Visit Information Visit Type Treatment Note Visit Note 07/30 Access Code [email or web address] Visit Start Time 10:34 Visit Stop Time 11:16 Visit Number 12 Number of LIGHT AIR DEFENSE ARTILLERY CREWMEMBER Visits 1 PT-OP-B Current Condition Start: 06/12/23 17:14 Freq: Status: Active Protocol: Document 06/13/23 09:27 [facility] (Rec: 06/13/23 11:19 [facility] [id number]) Current Condition History of Current Condition Current Complaints back pain & dec balance History of Current Condition Pt reports he has had really good balance all his life and don't trust it anymore. he still occ climb ladders and occ is worried about it and gets slow and careful. He does have DDD in bottom 5 vertebrae and mult degenerative changes. His back is stiff a lot. He has done PT in the past and at this point has given up on finding a cure. Walks 3 miles 5 days a week and tries to stay active . Uses an inversion table to prn to avoid sciatica. His sense is his back affects his balance. Doing the exercises over several months, didn't help but back gets tired from his PT exercises. When back gets tired, he starts tog et pain radiating to his buttocks and into back of leg. does report neuropathy. Last chemo was 5 years ago and has had leukemia dx for 31 years. In remission right now and is still regularly checked. hx of B knee replacements. Cyst on liver and gallbadder removed along w/part of liver and gallbladder. Pt reports he feels like his balance started to decline about 5 years w/ last 2-3 years more pronounced . SItting up in a straight backed chair is painful. Drive 10-15 min and has trouble getting straightened up. 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 He used to use a lot of asprin and ibuprofen in the past but cannot use it anymore. Dizziness sometimes when standing to get of chair. Hx L hip replacement. Pt has hx of L MELBA. Prior Treatments and Tests 2018 MRI: IMPRESSION: 1. Multilevel degenerative disc and facet disease, as well ligamentum flavum hypertrophy. 2. Grade I isthmic spondylolisthesis at L5-S1. 3. Severe bilateral L5-S1 foraminal stenosis, with associated flattening deformity of the L5 nerve roots in the neural foramina. Recommend correlation with clinical symptoms to ascertain relevance of this finding. 4. Mild canal and mild to moderate foraminal stenosis at the remaining levels. Treatment Goals Patient/Caregiver Goals Improve balance, find a way to cope better w/back, be able to yard work w/less repercussion; be able drive longer distances PT-OP-C Subjective Start: 06/12/23 17:14 Freq: Status: Active Protocol: Document 08/07/23 08:11 AB (Rec: 08/07/23 15:15 AB [id number]) OP-PT Subjective Patient Comments Patient Comments Pt reports walking 2 miles, sometimes it hurts, sometimes not, reports wearing a knee brace when walking.2.5-3/10 back pain right knee 1.5/10 start of session. PT-OP-D Balance Start: 06/12/23 17:14 Freq: Status: Active Protocol: Document 07/16/23 09:04 [facility] (Rec: 07/16/23 09:50 [facility] [id number]) Balance Tests Single Limb Standing Single Limb- Right 9 sec Single Limb- Left >30 sec PT-OP-E Functional Tests Start: 06/12/23 17:14 Freq: Status: Active Protocol: Document 06/17/23 08:03 AB (Rec: 06/17/23 14:07 AB [id number]) Functional Tests Functional Gait Assessment Functional Gait Assessment Impairment 20 to <40% Impaired (Score 19- Rating 24) PT-OP-F Manual Assessment Start: 06/12/23 17:14 Freq: Status: Active Protocol: Document 06/13/23 09:27 [facility] (Rec: 06/13/23 11:19 [facility] [id number]) Manual Assessments Joint Mobility Assessment Joint Mobility Assessment L iliac crest higher; equal greater trochanter B PT-OP-G Mobility & Gait Start: 06/12/23 17:14 Freq: Status: Active Protocol: Document 06/13/23 09:27 [facility] (Rec: 06/13/23 11:19 [facility] [id number]) OP Gait Assessment Comments Gait Comments outreach counselor of RLE and lat lean w /wt acceptance on RLE; dec push off B PT-OP-J Posture/Palpation/Skin Start: 06/12/23 17:14 Freq: Status: Active Protocol: Document 07/16/23 09:04 [facility] (Rec: 07/16/23 09:50 [facility] [id number]) Posture Evaluation Tamara Postural Classification System Vertebral Compression Test 2 Lumbar Protective Mechanism Left AP 3 Lumbar Protective Mechanism Right AP 1 Lumbar Protective Mechanism Left PA 3 Lumbar Protective Mechanism Right PA 4 PT-OP-K Range of Motion Start: 06/12/23 17:14 Freq: Status: Active Protocol: Document 06/13/23 09:27 [facility] (Rec: 06/13/23 11:19 [facility] [id number]) Lumbar Spine Range of Motion Lumbar Spine Active Percentage Flexion 50 Extension 20 Rotation Left 50 Rotation Right 75 Lateral Flexion Left 75 Lateral Flexion Right 50 ROM Limitations Pain PT-OP-L Special Tests Start: 06/12/23 17:14 Freq: Status: Active Protocol: Document 06/13/23 09:27 [facility] (Rec: 06/13/23 11:19 [facility] [id number]) Special Tests Lumbar Spine Special Tests Slump Comments some tightness in HS/calf L PT-OP-M Strength Start: 06/12/23 17:14 Freq: Status: Active Protocol: Document 07/16/23 09:04 [facility] (Rec: 07/16/23 09:50 [facility] [id number]) Hip Strength Hip Manual Muscle Testing Right Flexion (L2) 4+ Good+ Extension (S1) 5 Normal Abduction 5 Normal Adduction 5 Normal External Rotation 5 Normal Internal Rotation 5 Normal Comments pain in back w/B ext Left Flexion (L2) 4- Good- Extension (S1) 5 Normal Abduction 5 Normal Adduction 5 Normal External Rotation 4- Good- Internal Rotation 5 Normal Comments pain in ant L hip w/flex and ER Knee Strength Knee Manual Muscle Testing Right Flexion (S2) 5 Normal Extension (L3) 5 Normal Left Flexion (S2) 5 Normal Extension (L3) 5 Normal PT-OP-Q Treatments Start: 06/12/23 17:14 Freq: Status: Active Protocol: Document 08/07/23 08:11 AB (Rec: 08/07/23 15:15 AB [id number]) Therapeutic Exercises Supine Exercises piriformis stretch Side bilateral Reps/Minutes one minute X2 each LE Comments Verbal cues for LE position bent knee fall out with and without band Side bilateral Resistance level 3 green band Reps/Minutes X10 without band X10 with band Comments Verbal cues to brace and move LE slowly Sitting Exercises tennis ball Sitting Exercise Name glutes Side right Reps/Minutes 2 min Comments work w/knee ext Standing Exercises standing glute med activation at wall Reps/Minutes one minute X 1 each LE Comments Verbal and visual cues squat with band Standing Exercise Name 1/2 to chair seat Side bilateral Equipment Used level 3 band Reps/Minutes 2X10 Comments HEP modified to 1/2 to chair seat due to knee pain with sit to stand Manual Therapy Treatment Soft Tissue Mobilization LS nerve slacking bilateral glute/piriformis Body Location bilateral LS areas only Mobilization Type Sustained Pressure Intensity/Depth Moderate Body Position Sidelying Self-Care/Home Management Treatment Activities Self-Care/Home Management Activities piriformis stretch and glute med activation added to HEP, bands increased to level 3 PT-OP-T Assessment and Plan Start: 06/12/23 17:14 Freq: Status: Active Protocol: Document 08/07/23 08:11 AB (Rec: 08/07/23 15:15 AB [id number]) Physical Therapy Assessment Goals posture Impairment VCT 1/5 Instrument And Controls Technician Goal (LTG) Pt will improve VCT to at least 4/5 to show improved postural alignment to allow improved stability and dec pain. 07/15-improved to 2/5 LTG Duration 09/05/23 strength Short Term Goal (STG) Pt will be indep w/hEP STG Duration achieved advancing as able Instrument And Controls Technician Goal (LTG) Pt will score 5/5 on BLE MMT and at least 4/5 on LPM in all planes to show improved stability to improve balance and strength. 07/15-improved LTG Duration 09/02/23 activity Short Term Goal (STG) Pt will be able to drive to his mailbox at post office without inc back pain. 07/03/2023 Patient reports having less pain when getting in and out of the car to get the mail. STG Duration 07/23/23 Custodial Goal (LTG) Pt will be able to drive for 1 hour and do yard/housework w/ o back pain greater than 3/10 07/15-stiff after; went to [place] (3 hr) and it took about 10 min before felt he can walk-08/29 LTG Duration 09/05/23 balance Short Term Goal (STG) Pt will be able to RLE SLS for at least 15 sec 07/15-10 sec R; 30 sec L STG Duration 07/23/23 Custodial Goal (LTG) Pt will be able to do SLS B w/ good alignment for 30 sec ea and at least 25/30 on FGA to show improved balance. LTG Duration 09/05/23 Assessment Summary Assessment Patient reports his back feels like he exercised, not pain. Physical Therapy Plan Frequency and Duration Frequency of Treatment 2x/Week Duration of treatment (weeks) 12 Plan of Care Start Date 06/13/23 Plan of Care End Date 09/05/23 Next Visit Focus/Plan Next Note Type Treatment Note Next Visit Plan advance hip strength/balance manual to hips and pelvis and lumbar spine to dec pain and stiffness, focus on balance, Stabilzation seated on ball. Possibly taping
--- NOTE | 2023-08-14 11:32 | PT.OTN ---
Current Diagnoses Low back pain, unspecified (08/14/23) Difficulty in walking, not elsewhere classified (08/14/23) Other abnormalities of gait and mobility (08/14/23) Abnormal posture (08/14/23) Weakness (08/14/23) Physical Therapy Treatment Note PT-OP-A Visit Information Start: 06/12/23 17:14 Freq: Status: Active Protocol: Document 08/14/23 08:06 AB (Rec: 08/14/23 11:32 AB [id number]) Out-Patient Physical Therapy Visit Information Visit Information Visit Type Treatment Note Visit Note 09/29 Access Code [email or web address] Visit Start Time 10:32 Visit Stop Time 11:18 Visit Number 13 Number of ARCHITECTURAL PROJECT MANAGER Visits 2 PT-OP-B Current Condition Start: 06/12/23 17:14 Freq: Status: Active Protocol: Document 06/13/23 09:27 [facility] (Rec: 06/13/23 11:19 [facility] [id number]) Current Condition History of Current Condition Current Complaints back pain & dec balance History of Current Condition Pt reports he has had really good balance all his life and don't trust it anymore. he still occ climb ladders and occ is worried about it and gets slow and careful. He does have DDD in bottom 5 vertebrae and mult degenerative changes. His back is stiff a lot. He has done PT in the past and at this point has given up on finding a cure. Walks 3 miles 5 days a week and tries to stay active . Uses an inversion table to prn to avoid sciatica. His sense is his back affects his balance. Doing the exercises over several months, didn't help but back gets tired from his PT exercises. When back gets tired, he starts tog et pain radiating to his buttocks and into back of leg. does report neuropathy. Last chemo was 5 years ago and has had leukemia dx for 31 years. In remission right now and is still regularly checked. hx of B knee replacements. Cyst on liver and gallbadder removed along w/part of liver and gallbladder. Pt reports he feels like his balance started to decline about 5 years w/ last 2-3 years more pronounced . SItting up in a straight backed chair is painful. Drive 10-15 min and has trouble getting straightened up. 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 He used to use a lot of asprin and ibuprofen in the past but cannot use it anymore. Dizziness sometimes when standing to get of chair. Hx L hip replacement. Pt has hx of L MELBA. Prior Treatments and Tests 2018 MRI: IMPRESSION: 1. Multilevel degenerative disc and facet disease, as well ligamentum flavum hypertrophy. 2. Grade I isthmic spondylolisthesis at L5-S1. 3. Severe bilateral L5-S1 foraminal stenosis, with associated flattening deformity of the L5 nerve roots in the neural foramina. Recommend correlation with clinical symptoms to ascertain relevance of this finding. 4. Mild canal and mild to moderate foraminal stenosis at the remaining levels. Treatment Goals Patient/Caregiver Goals Improve balance, find a way to cope better w/back, be able to yard work w/less repercussion; be able drive longer distances PT-OP-C Subjective Start: 06/12/23 17:14 Freq: Status: Active Protocol: Document 08/14/23 08:06 AB (Rec: 08/14/23 11:32 [id number]) OP-PT Subjective Patient Comments Patient Comments Patient reports he drove to [place] and back, was stiff after, but not as bad as he used to be. Patient reports the knee was also painful, but then OK after walking around. Patient reports back is at least 50% better than when he started therapy. PT-OP-D Balance Start: 06/12/23 17:14 Freq: Status: Active Protocol: Document 07/16/23 09:04 [facility] (Rec: 07/16/23 09:50 [facility] [id number]) Balance Tests Single Limb Standing Single Limb- Right 9 sec Single Limb- Left >30 sec PT-OP-E Functional Tests Start: 06/12/23 17:14 Freq: Status: Active Protocol: Document 06/17/23 08:03 AB (Rec: 06/17/23 14:07 AB [id number]) Functional Tests Functional Gait Assessment Functional Gait Assessment Impairment 20 to <40% Impaired (Score 19- Rating 24) PT-OP-F Manual Assessment Start: 06/12/23 17:14 Freq: Status: Active Protocol: Document 06/13/23 09:27 [facility] (Rec: 06/13/23 11:19 [facility] [id number]) Manual Assessments Joint Mobility Assessment Joint Mobility Assessment L iliac crest higher; equal greater trochanter B PT-OP-G Mobility & Gait Start: 06/12/23 17:14 Freq: Status: Active Protocol: Document 06/13/23 09:27 [facility] (Rec: 06/13/23 11:19 [facility] [id number]) OP Gait Assessment Comments Gait 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 w /wt acceptance on RLE; dec push off B PT-OP-J Posture/Palpation/Skin Start: 06/12/23 17:14 Freq: Status: Active Protocol: Document 07/16/23 09:04 [facility] (Rec: 07/16/23 09:50 [facility] [id number]) Posture Evaluation Tamara Postural Classification System Vertebral Compression Test 2 Lumbar Protective Mechanism Left AP 3 Lumbar Protective Mechanism Right AP 1 Lumbar Protective Mechanism Left PA 3 Lumbar Protective Mechanism Right PA 4 PT-OP-K Range of Motion Start: 06/12/23 17:14 Freq: Status: Active Protocol: Document 06/13/23 09:27 [facility] (Rec: 06/13/23 11:19 [facility] [id number]) Lumbar Spine Range of Motion Lumbar Spine Active Percentage Flexion 50 Extension 20 Rotation Left 50 Rotation Right 75 Lateral Flexion Left 75 Lateral Flexion Right 50 ROM Limitations Pain PT-OP-L Special Tests Start: 06/12/23 17:14 Freq: Status: Active Protocol: Document 06/13/23 09:27 [facility] (Rec: 06/13/23 11:19 [facility] [id number]) Special Tests Lumbar Spine Special Tests Slump Comments some tightness in HS/calf L PT-OP-M Strength Start: 06/12/23 17:14 Freq: Status: Active Protocol: Document 07/16/23 09:04 [facility] (Rec: 07/16/23 09:50 [facility] [id number]) Hip Strength Hip Manual Muscle Testing Right Flexion (L2) 4+ Good+ Extension (S1) 5 Normal Abduction 5 Normal Adduction 5 Normal External Rotation 5 Normal Internal Rotation 5 Normal Comments pain in back w/B ext Left Flexion (L2) 4- Good- Extension (S1) 5 Normal Abduction 5 Normal Adduction 5 Normal External Rotation 4- Good- Internal Rotation 5 Normal Comments pain in ant L hip w/flex and ER Knee Strength Knee Manual Muscle Testing Right Flexion (S2) 5 Normal Extension (L3) 5 Normal Left Flexion (S2) 5 Normal Extension (L3) 5 Normal PT-OP-Q Treatments Start: 06/12/23 17:14 Freq: Status: Active Protocol: Document 08/14/23 08:06 AB (Rec: 08/14/23 11:32 AB [id number]) Therapeutic Exercises Supine Exercises hip flexor stretch edge of bed Side bilateral Reps/Minutes one minute each LE X 1 Sitting Exercises seated marching on ball Sitting Exercise Name Supervision Side bilateral Reps/Minutes X10 Comments verbal cues for marching and to avoid allowing the ball to move. Standing Exercises counter bird dog Side bilateral Reps/Minutes X10 X 2 Comments verbal cues to brace with abdominal muscles Other Exercises quadruped bird dog Side bilateral Reps/Minutes X5 X 2 Manual Therapy Treatment Soft Tissue Mobilization hip flexor Body Location bilateral Mobilization Type Cross-Friction,Rolling, Sustained Pressure Intensity/Depth Moderate Body Position Hooklying LS nerve slacking bilateral glute/piriformis Body Location bilateral Mobilization Type Sustained Pressure Intensity/Depth Moderate Body Position Sidelying Manual Techniques MET for left AI right PI and pubic shotgun Type MET Body Location SI Body Position Hooklying Reps/Duration 6X6 each Comments Verbal cues, monitored for pain PT-OP-T Assessment and Plan Start: 06/12/23 17:14 Freq: Status: Active Protocol: Document 08/14/23 08:06 AB (Rec: 08/14/23 11:32 AB [id number]) Physical Therapy Assessment Goals posture Impairment VCT 1/5 Scholarship Counselor Goal (LTG) Pt will improve VCT to at least 4/5 to show improved postural alignment to allow improved stability and dec pain. 07/15-improved to 2/5 LTG Duration 09/05/23 strength Short Term Goal (STG) Pt will be indep w/hEP STG Duration achieved advancing as able Snf Goal (LTG) Pt will score 5/5 on BLE MMT and at least 4/5 on LPM in all planes to show improved stability to improve balance and strength. 07/15-improved LTG Duration 09/02/23 activity Short Term Goal (STG) Pt will be able to drive to his mailbox at post office without inc back pain. 07/03/2023 Patient reports having less pain when getting in and out of the car to get the mail. STG Duration 07/23/23 Scholarship Counselor Goal (LTG) Pt will be able to drive for 1 hour and do yard/housework w/ o back pain greater than 3/10 07/15-stiff after; went to [place] (3 hr) and it took about 10 min before felt he can walk-5/10 LTG Duration 09/05/23 balance Short Term Goal (STG) Pt will be able to RLE SLS for at least 15 sec 07/15-10 sec R; 30 sec L STG Duration 07/23/23 Snf Goal (LTG) Pt will be able to do SLS B w/ good alignment for 30 sec ea and at least 25/30 on FGA to show improved balance. LTG Duration 09/05/23 Assessment Summary Assessment Patient reports the back feels good looser, end of session. Physical Therapy Plan Frequency and Duration Frequency of Treatment 2x/Week Duration of treatment (weeks) 12 Plan of Care Start Date 06/13/23 Plan of Care End Date 09/05/23 Therapeutic Interventions Therapeutic Interventions Balance Training,Gait Training ,Home Exercise Program,Joint Mobilizations,Manual Therapy, Neuromuscular Re-education, Orthotic/Prosthetic Management ,Patient/Caregiver Education, Self-Care/Home Management,Soft Tissue Mobilization,Taping, Therapeutic Activities, Therapeutic Exercises, Vestibular Rehabilitation Next Visit Focus/Plan Next Note Type Treatment Note Next Visit Plan advance hip strength/balance manual to hips and pelvis and lumbar spine to dec pain and stiffness, focus on balance, Possibly Stabilzation seated on ball to HEP. Balance
--- NOTE | 2023-08-21 11:29 | PT.OTN ---
Current Diagnoses Low back pain, unspecified (08/21/23) Difficulty in walking, not elsewhere classified (08/21/23) Other abnormalities of gait and mobility (08/21/23) Abnormal posture (08/21/23) Weakness (08/21/23) Physical Therapy Treatment Note PT-OP-A Visit Information Start: 06/12/23 17:14 Freq: Status: Active Protocol: Document 08/21/23 10:37 [facility] (Rec: 08/21/23 11:28 [facility] [id number]) Out-Patient Physical Therapy Visit Information Visit Information Visit Type Progress Note Visit Note 05/01 Access Code [email or web address] Visit Start Time 10:37 Visit Stop Time 11:17 Visit Number 14 Number of SOFTWARE DEVELOPMENT ADVISOR Visits 0 PT-OP-B Current Condition Start: 06/12/23 17:14 Freq: Status: Active Protocol: Document 06/13/23 09:27 [facility] (Rec: 06/13/23 11:19 [facility] [id number]) Current Condition History of Current Condition Current Complaints back pain & dec balance History of Current Condition Pt reports he has had really good balance all his life and don't trust it anymore. he still occ climb ladders and occ is worried about it and gets slow and careful. He does have DDD in bottom 5 vertebrae and mult degenerative changes. His back is stiff a lot. He has done PT in the past and at this point has given up on finding a cure. Walks 3 miles 5 days a week and tries to stay active . Uses an inversion table to prn to avoid sciatica. His sense is his back affects his balance. Doing the exercises over several months, didn't help but back gets tired from his PT exercises. When back gets tired, he starts tog et pain radiating to his buttocks and into back of leg. does report neuropathy. Last chemo was 5 years ago and has had leukemia dx for 31 years. In remission right now and is still regularly checked. hx of B knee replacements. Cyst on liver and gallbadder removed along w/part of liver and gallbladder. Pt reports he feels like his balance started to decline about 5 years w/ last 2-3 years more pronounced . SItting up in a straight backed chair is painful. Drive 10-15 min and has trouble getting straightened up. 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 He used to use a lot of asprin and ibuprofen in the past but cannot use it anymore. Dizziness sometimes when standing to get of chair. Hx L hip replacement. Pt has hx of L MELBA. Prior Treatments and Tests 2018 MRI: IMPRESSION: 1. Multilevel degenerative disc and facet disease, as well ligamentum flavum hypertrophy. 2. Grade I isthmic spondylolisthesis at L5-S1. 3. Severe bilateral L5-S1 foraminal stenosis, with associated flattening deformity of the L5 nerve roots in the neural foramina. Recommend correlation with clinical symptoms to ascertain relevance of this finding. 4. Mild canal and mild to moderate foraminal stenosis at the remaining levels. Treatment Goals Patient/Caregiver Goals Improve balance, find a way to cope better w/back, be able to yard work w/less repercussion; be able drive longer distances PT-OP-C Subjective Start: 06/12/23 17:14 Freq: Status: Active Protocol: Document 08/21/23 10:37 [facility] (Rec: 08/21/23 11:28 [facility] [id number]) OP-PT Subjective Patient Comments Patient Comments Pt reports back better but still there. He has been doing his exercises every other day . If he exercises and walk, his back is tired. His exercises make his legs sore. Feels like balance is better. Stiffness goes away quicker. Knee tightened up when driving . Back to walking 3 miles and wears a knee brace. Mostly when twists knee funny, it hurts PT-OP-D Balance Start: 06/12/23 17:14 Freq: Status: Active Protocol: Document 08/21/23 10:37 [facility] (Rec: 08/21/23 11:28 [facility] [id number]) Balance Tests Single Limb Standing Single Limb- Right 30 sec Single Limb- Left >30 sec PT-OP-E Functional Tests Start: 06/12/23 17:14 Freq: Status: Active Protocol: Document 06/17/23 08:03 [facility] (Rec: 06/17/23 14:07 AB [id number]) Functional Tests Functional Gait Assessment Functional Gait Assessment Impairment 20 to <40% Impaired (Score 19- Rating 24) PT-OP-F Manual Assessment Start: 06/12/23 17:14 Freq: Status: Active Protocol: Document 06/13/23 09:27 [facility] (Rec: 06/13/23 11:19 [facility] [id number]) Manual Assessments Joint Mobility Assessment Joint Mobility Assessment L iliac crest higher; equal greater trochanter B PT-OP-G Mobility & Gait Start: 06/12/23 17:14 Freq: Status: Active Protocol: Document 06/13/23 09:27 [facility] (Rec: 06/13/23 11:19 [facility] [id number]) OP Gait Assessment Comments 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 lat 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 w /wt acceptance on RLE; dec push off B PT-OP-J Posture/Palpation/Skin Start: 06/12/23 17:14 Freq: Status: Active Protocol: Document 08/21/23 10:37 [facility] (Rec: 08/21/23 11:28 [facility] [id number]) Posture Evaluation [facility] Postural Classification System Vertebral Compression Test 4 Lumbar Protective Mechanism Left AP 2 Lumbar Protective Mechanism Right AP 2 Lumbar Protective Mechanism Left PA 4 Lumbar Protective Mechanism Right PA 3 PT-OP-K Range of Motion Start: 06/12/23 17:14 Freq: Status: Active Protocol: Document 06/13/23 09:27 [facility] (Rec: 06/13/23 11:19 [facility] [id number]) Lumbar Spine Range of Motion Lumbar Spine Active Percentage Flexion 50 Extension 20 Rotation Left 50 Rotation Right 75 Lateral Flexion Left 75 Lateral Flexion Right 50 ROM Limitations Pain PT-OP-L Special Tests Start: 06/12/23 17:14 Freq: Status: Active Protocol: Document 06/13/23 09:27 [facility] (Rec: 06/13/23 11:19 [facility] [id number]) Special Tests Lumbar Spine Special Tests Slump Comments some tightness in HS/calf L PT-OP-M Strength Start: 06/12/23 17:14 Freq: Status: Active Protocol: Document 08/21/23 10:37 [facility] (Rec: 08/21/23 11:28 [facility] [id number]) Hip Strength Hip Manual Muscle Testing Right Flexion (L2) 5 Normal Extension (S1) 5 Normal Abduction 5 Normal Adduction 5 Normal External Rotation 5 Normal Internal Rotation 5 Normal Left Flexion (L2) 4+ Good+ Extension (S1) 5 Normal Abduction 5 Normal Adduction 5 Normal External Rotation 4 Good Internal Rotation 5 Normal Comments pain in ant L hip w/flex and ER, IR Knee Strength Knee Manual Muscle Testing Right Flexion (S2) 5 Normal Extension (L3) 5 Normal Left Flexion (S2) 5 Normal Extension (L3) 5 Normal Ankle/Foot Strength Ankle and Foot Manual Muscle Testing Right Dorsiflexion (L4) 5 Normal Plantarflexion (S1) 5 Normal Left Dorsiflexion (L4) 5 Normal Plantarflexion (S1) 5 Normal Comments 20 heel raises B PT-OP-Q Treatments Start: 06/12/23 17:14 Freq: Status: Active Protocol: Document 08/21/23 10:37 [facility] (Rec: 08/21/23 11:28 [facility] [id number]) Therapeutic Exercises Supine Exercises KTC Supine Exercise Name DKTC Side bilateral Reps/Minutes 1 min Sidelying Exercises clamshell Side left Equipment Used L2 Reps/Minutes 10 Sitting Exercises pelvic tilts Reps/Minutes 10 Other Exercises isometrics Other Exercise Name MMT and LPM & VCT Side bilateral Manual Therapy Treatment Joint Mobilizations lumbar Comments downglide R L5, down glide L L5 sacrum Comments PA sacrum seated FM Neuro Re-Education Treatment Balance Activities SLS Comments B trials FGA Comments Score of 29 Self-Care/Home Management Treatment Education Other Education 6 min: discussion of HEP and what to cont and how to advance SLS w/head turns w/ counter near PT-OP-T Assessment and Plan Start: 06/12/23 17:14 Freq: Status: Active Protocol: Document 08/21/23 10:37 [facility] (Rec: 08/21/23 11:28 [facility] [id number]) Physical Therapy Assessment Goals posture Impairment VCT 1/5 [facility] Goal (LTG) Pt will improve VCT to at least 4/5 to show improved postural alignment to allow improved stability and dec pain. 07/15-improved to 2/5 LTG Duration achieved 08/20 strength Short Term Goal (STG) Pt will be indep w/hEP STG Duration achieved advancing as able Antiquer Goal (LTG) Pt will score 5/5 on BLE MMT and at least 4/5 on LPM in all planes to show improved stability to improve balance and strength. 07/15-improved 08/20-improved LTG Duration 7/ activity Short Term Goal (STG) Pt will be able to drive to his mailbox at post office without inc back pain. 07/03/2023 Patient reports having less pain when getting in and out of the car to get the mail. 08/20-loosens up by the time gets to the door vs maintaining tightness. Not as painfull just stiffness STG Duration 09/18 [facility] Goal (LTG) Pt will be able to drive for 1 hour and do yard/housework w/ o back pain greater than 3/10 07/15-stiff after; went to [place] (3 hr) and it took about 10 min before felt he can walk-08/29 08/20-yard/housework 2-06/29 achieved; drive 1 hour-2-06/29 LTG Duration achieved 08/20 balance Short Term Goal (STG) Pt will be able to RLE SLS for at least 15 sec 07/15-10 sec R; 30 sec L STG Duration achieved [facility] Goal (LTG) Pt will be able to do SLS B w/ good alignment for 30 sec ea and at least 25/30 on FGA to show improved balance. LTG Duration achieved Assessment Summary Assessment Pt making good progress w/PT at this time. Sitting still limited likely d/t cannot get pelvis into neutral in seated position. Pt cont to benefit from PT with dec in back pain and improve in balance and funcitonal activity. Pt no longer feels off balance as much. Cont PT for working on dec back pain and hip pain improved function Physical Therapy Plan Frequency and Duration Frequency of Treatment 1x/Week Duration of treatment (weeks) 8 Plan of Care Start Date 08/21/23 Plan of Care End Date 10/24/23 Therapeutic Interventions Therapeutic Interventions Balance Training,Gait Training ,Home Exercise Program,Joint Mobilizations,Manual Therapy, Neuromuscular Re-education, Orthotic/Prosthetic Management ,Patient/Caregiver Education, Self-Care/Home Management,Soft Tissue Mobilization,Taping, Therapeutic Activities, Therapeutic Exercises, Vestibular Rehabilitation Next Visit Focus/Plan Next Note Type Discharge Summary Next Visit Plan assess ability to DC. FOllow up in a few weeks
--- NOTE | 2023-08-21 11:29 | PT.OPPOC ---
Physical, Occupational & Speech Therapy At [facility] Current Diagnoses Low back pain, unspecified (08/21/23) Difficulty in walking, not elsewhere classified (08/21/23) Other abnormalities of gait and mobility (08/21/23) Abnormal posture (08/21/23) Weakness (08/21/23) Visit Care Team Role Provider Type Jj La MD Attending Provider Physician Family Provider Primary Care Provider Referring Provider Specialty: Family Practice Address: [address] [place] [address] Email: [email or web address] Plan Of Care PT-OP-T Assessment and Plan Start: 06/12/23 17:14 Freq: Status: Active Protocol: Document 08/21/23 10:37 [facility] (Rec: 08/21/23 11:28 [facility] [id number]) Physical Therapy Assessment Goals posture Impairment VCT 1/ Assisted Goal (LTG) Pt will improve VCT to at least 4/5 to show improved postural alignment to allow improved stability and dec pain. 07/15-improved to 2/5 LTG Duration achieved 08/20 strength Short Term Goal (STG) Pt will be indep w/hEP STG Duration achieved advancing as able Assisted Goal (LTG) Pt will score 5/5 on BLE MMT and at least 4/5 on LPM in all planes to show improved stability to improve balance and strength. 07/15-improved 08/20-improved LTG Duration 7/ activity Short Term Goal (STG) Pt will be able to drive to his mailbox at post office without inc back pain. 07/03/2023 Patient reports having less pain when getting in and out of the car to get the mail. 08/20-loosens up by the time gets to the door vs maintaining tightness. Not as painfull just stiffness STG Duration 09/18 Civil Engineering Professional Goal (LTG) Pt will be able to drive for 1 hour and do yard/housework w/ o back pain greater than 3/10 07/15-stiff after; went to [place] (3 hr) and it took about 10 min before felt he can walk-08/29 08/20-yard/housework 2-3/10 achieved; drive 1 hour-2-3/10 LTG Duration achieved 08/20 balance Short Term Goal (STG) Pt will be able to RLE SLS for at least 15 sec /-10 sec R; 30 sec L STG Duration achieved Civil Engineering Professional Goal (LTG) Pt will be able to do SLS B w/ good alignment for 30 sec ea and at least 25/30 on FGA to show improved balance. LTG Duration achieved Assessment Summary Assessment Pt making good progress w/PT at this time. Sitting still limited likely d/t cannot get pelvis into neutral in seated position. Pt cont to benefit from PT with dec in back pain and improve in balance and funcitonal activity. Pt no longer feels off balance as much. Cont PT for working on dec back pain and hip pain improved function Physical Therapy Plan Frequency and Duration Frequency of Treatment 1x/Week Duration of treatment (weeks) 8 Plan of Care Start Date 08/21/23 Plan of Care End Date 10/24/23 Therapeutic Interventions Therapeutic Interventions Balance Training,Gait Training ,Home Exercise Program,Joint Mobilizations,Manual Therapy, Neuromuscular Re-education, Orthotic/Prosthetic Management ,Patient/Caregiver Education, Self-Care/Home Management,Soft Tissue Mobilization,Taping, Therapeutic Activities, Therapeutic Exercises, Vestibular Rehabilitation Next Visit Focus/Plan Next Note Type Discharge Summary Next Visit Plan assess ability to DC. FOllow up in a few weeks Plan of Care Dates Plan of Care Start Date 08/21/23 Plan of Care End Date 10/24/23 Electronically Signed by: Nga Black, PT 08/21/23 0276 If you are in agreement with this Plan of Care, please return a signed and dated copy. I have reviewed this Plan of Care and certify that the skilled therapy services above are required to meet the patient?s needs. Physician Signature Date Printed Name and Credentials Clinical Instructor Signature Printed Name and Credentials
--- NOTE | 2023-09-09 16:21 | PT.OTN ---
Current Diagnoses Low back pain, unspecified (09/09/23) Difficulty in walking, not elsewhere classified (09/09/23) Other abnormalities of gait and mobility (09/09/23) Abnormal posture (09/09/23) Weakness (09/09/23) Physical Therapy Treatment Note PT-OP-A Visit Information Start: 06/12/23 17:14 Freq: Status: Active Protocol: Document 09/09/23 12:58 [facility] (Rec: 09/09/23 16:21 [facility] [id number]) Out-Patient Physical Therapy Visit Information Visit Information Visit Type Treatment Note Visit Note Access Code [email or web address] Visit Start Time 14:31 Visit Stop Time 15:15 Visit Number 15 Number of INSURANCE CLAIMS ADJUSTER Visits 1 PT-OP-B Current Condition Start: 06/12/23 17:14 Freq: Status: Active Protocol: Document 06/13/23 09:27 [facility] (Rec: 06/13/23 11:19 [facility] [id number]) Current Condition History of Current Condition Current Complaints back pain & dec balance History of Current Condition Pt reports he has had really good balance all his life and don't trust it anymore. he still occ climb ladders and occ is worried about it and gets slow and careful. He does have DDD in bottom 5 vertebrae and mult degenerative changes. His back is stiff a lot. He has done PT in the past and at this point has given up on finding a cure. Walks 3 miles 5 days a week and tries to stay active . Uses an inversion table to prn to avoid sciatica. His sense is his back affects his balance. Doing the exercises over several months, didn't help but back gets tired from his PT exercises. When back gets tired, he starts tog et pain radiating to his buttocks and into back of leg. does report neuropathy. Last chemo was 5 years ago and has had leukemia dx for 31 years. In remission right now and is still regularly checked. hx of B knee replacements. Cyst on liver and gallbadder removed along w/part of liver and gallbladder. Pt reports he feels like his balance started to decline about 5 years w/ last 2-3 years more pronounced . SItting up in a straight backed chair is painful. Drive 10-15 min and has trouble getting straightened up. 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 He used to use a lot of asprin and ibuprofen in the past but cannot use it anymore. Dizziness sometimes when standing to get of chair. Hx L hip replacement. Pt has hx of L MELBA. Prior Treatments and Tests 2018 MRI: IMPRESSION: 1. Multilevel degenerative disc and facet disease, as well ligamentum flavum hypertrophy. 2. Grade I isthmic spondylolisthesis at L5-S1. 3. Severe bilateral L5-S1 foraminal stenosis, with associated flattening deformity of the L5 nerve roots in the neural foramina. Recommend correlation with clinical symptoms to ascertain relevance of this finding. 4. Mild canal and mild to moderate foraminal stenosis at the remaining levels. Treatment Goals Patient/Caregiver Goals Improve balance, find a way to cope better w/back, be able to yard work w/less repercussion; be able drive longer distances PT-OP-C Subjective Start: 06/12/23 17:14 Freq: Status: Active Protocol: Document 09/09/23 12:58 [facility] (Rec: 09/09/23 16:21 [facility] [id number]) OP-PT Subjective Patient Comments Patient Comments Patient reports he is similar to previous session, comments he did something that made him sore, not sure if it is exercises or the yard work. Patient reports the green band is difficult with the squats, so he ties the band a little looser. PT-OP-D Balance Start: 06/12/23 17:14 Freq: Status: Active Protocol: Document 08/21/23 10:37 [facility] (Rec: 08/21/23 11:28 [facility] [id number]) Balance Tests Single Limb Standing Single Limb- Right 30 sec Single Limb- Left >30 sec PT-OP-E Functional Tests Start: 06/12/23 17:14 Freq: Status: Active Protocol: Document 06/17/23 08:03 [facility] (Rec: 06/17/23 14:07 [facility] [id number]) Functional Tests Functional Gait Assessment Functional Gait Assessment Impairment 20 to <40% Impaired (Score 19- Rating 24) PT-OP-F Manual Assessment Start: 06/12/23 17:14 Freq: Status: Active Protocol: Document 06/13/23 09:27 [facility] (Rec: 06/13/23 11:19 [facility] [id number]) Manual Assessments Joint Mobility Assessment Joint Mobility Assessment L iliac crest higher; equal greater trochanter B PT-OP-G Mobility & Gait Start: 06/12/23 17:14 Freq: Status: Active Protocol: Document 06/13/23 09:27 [facility] (Rec: 06/13/23 11:19 [facility] [id number]) OP Gait Assessment Comments Gait Comments city routeman of RLE and lat lean w /wt acceptance on RLE; dec push off B PT-OP-J Posture/Palpation/Skin Start: 06/12/23 17:14 Freq: Status: Active Protocol: Document 08/21/23 10:37 [facility] (Rec: 08/21/23 11:28 [facility] [id number]) Posture Evaluation [facility] Postural Classification System Vertebral Compression Test 4 Lumbar Protective Mechanism Left AP 2 Lumbar Protective Mechanism Right AP 2 Lumbar Protective Mechanism Left PA 4 Lumbar Protective Mechanism Right PA 3 PT-OP-K Range of Motion Start: 06/12/23 17:14 Freq: Status: Active Protocol: Document 06/13/23 09:27 [facility] (Rec: 06/13/23 11:19 [facility] [id number]) Lumbar Spine Range of Motion Lumbar Spine Active Percentage Flexion 50 Extension 20 Rotation Left 50 Rotation Right 75 Lateral Flexion Left 75 Lateral Flexion Right 50 ROM Limitations Pain PT-OP-L Special Tests Start: 06/12/23 17:14 Freq: Status: Active Protocol: Document 06/13/23 09:27 [facility] (Rec: 06/13/23 11:19 [facility] [id number]) Special Tests Lumbar Spine Special Tests Slump Comments some tightness in HS/calf L PT-OP-M Strength Start: 06/12/23 17:14 Freq: Status: Active Protocol: Document 08/21/23 10:37 [facility] (Rec: 08/21/23 11:28 [facility] [id number]) Hip Strength Hip Manual Muscle Testing Right Flexion (L2) 5 Normal Extension (S1) 5 Normal Abduction 5 Normal Adduction 5 Normal External Rotation 5 Normal Internal Rotation 5 Normal Left Flexion (L2) 4+ Good+ Extension (S1) 5 Normal Abduction 5 Normal Adduction 5 Normal External Rotation 4 Good Internal Rotation 5 Normal Comments pain in ant L hip w/flex and ER, IR Knee Strength Knee Manual Muscle Testing Right Flexion (S2) 5 Normal Extension (L3) 5 Normal Left Flexion (S2) 5 Normal Extension (L3) 5 Normal Ankle/Foot Strength Ankle and Foot Manual Muscle Testing Right Dorsiflexion (L4) 5 Normal Plantarflexion (S1) 5 Normal Left Dorsiflexion (L4) 5 Normal Plantarflexion (S1) 5 Normal Comments 20 heel raises B PT-OP-Q Treatments Start: 06/12/23 17:14 Freq: Status: Active Protocol: Document 09/09/23 12:58 [facility] (Rec: 09/09/23 16:21 AB [id number]) Therapeutic Exercises Supine Exercises abdominal bracing with heel slide Side bilateral Reps/Minutes X10 each LE Comments VC and tactile cues Sidelying Exercises clamshell Side bilateral Equipment Used L3 Reps/Minutes 10 Therapeutic Activity Therapeutic Activity sitting positioning Name seated on towel roll and 1/2 foam roller Comments Patient ed use of spine model and patient ed rationale of positioning to increase anterior pelvic tilt using roll. Patient ed increased time spent seated causes posterior pelvic tilt. Manual Therapy Treatment Soft Tissue Mobilization left piriformis Body Location left Mobilization Type Rolling Intensity/Depth Moderate Body Position Sidelying Comments w/sciatic n glide hip flexor Body Location bilateral Mobilization Type Cross-Friction,Rolling, Sustained Pressure Intensity/Depth Moderate Body Position Hooklying Manual Techniques MET for left AI right PI and pubic shotgun Type MET Body Location SI Body Position Hooklying Reps/Duration 6X6 each Comments Verbal cues, monitored for pain PT-OP-T Assessment and Plan Start: 06/12/23 17:14 Freq: Status: Active Protocol: Document 09/09/23 12:58 [facility] (Rec: 09/09/23 16:21 [facility] [id number]) Physical Therapy Assessment Goals posture Impairment VCT 1/5 Group Home Goal (LTG) Pt will improve VCT to at least 4/5 to show improved postural alignment to allow improved stability and dec pain. 07/15-improved to 2/5 LTG Duration achieved 5/1 strength Short Term Goal (STG) Pt will be indep w/hEP STG Duration achieved advancing as able Group Home Goal (LTG) Pt will score 5/5 on BLE MMT and at least 4/5 on LPM in all planes to show improved stability to improve balance and strength. 07/15-improved 5/1-improved LTG Duration 7/1 activity Short Term Goal (STG) Pt will be able to drive to his mailbox at post office without inc back pain. 07/03/2023 Patient reports having less pain when getting in and out of the car to get the mail. /-loosens up by the time gets to the door vs maintaining tightness. Not as painfull just stiffness STG Duration 09/18 Surgical First Assistant Goal (LTG) Pt will be able to drive for 1 hour and do yard/housework w/ o back pain greater than 3/10 07/15-stiff after; went to [place] (3 hr) and it took about 10 min before felt he can walk-08/29 08/20-yard/housework 2-06/29 achieved; drive 1 hour-2-06/29 LTG Duration achieved 08/20 balance Short Term Goal (STG) Pt will be able to RLE SLS for at least 15 sec 07/15-10 sec R; 30 sec L STG Duration achieved Group Home Goal (LTG) Pt will be able to do SLS B w/ good alignment for 30 sec ea and at least 25/30 on FGA to show improved balance. LTG Duration achieved Assessment Summary Assessment Patient reports muscle soreness in the area worked today/hips end of session. Physical Therapy Plan Frequency and Duration Frequency of Treatment 1x/Week Duration of treatment (weeks) 8 Plan of Care Start Date 08/21/23 Plan of Care End Date 10/24/23 Next Visit Focus/Plan Next Note Type Treatment Note Next Visit Plan Add MET correction/pubic shotgun to HEP and review, possibly progress sidelying clamshell with band to side plank position
--- NOTE | 2023-09-18 14:33 | PT.OTN ---
Current Diagnoses Low back pain, unspecified (09/18/23) Difficulty in walking, not elsewhere classified (09/18/23) Other abnormalities of gait and mobility (09/18/23) Abnormal posture (09/18/23) Weakness (09/18/23) Physical Therapy Treatment Note PT-OP-A Visit Information Start: 06/12/23 17:14 Freq: Status: Active Protocol: Document 09/18/23 12:58 AB (Rec: 09/18/23 14:33 AB [id number]) Out-Patient Physical Therapy Visit Information Visit Information Visit Type Treatment Note Visit Note Access Code [email or web address] Visit Start Time 13:48 Visit Stop Time 16:31 Visit Number 16 Number of BIOLOGICAL LAB TECHNICIAN Visits 2 PT-OP-B Current Condition Start: 06/12/23 17:14 Freq: Status: Active Protocol: Document 06/13/23 09:27 [facility] (Rec: 06/13/23 11:19 [facility] [id number]) Current Condition History of Current Condition Current Complaints back pain & dec balance History of Current Condition Pt reports he has had really good balance all his life and don't trust it anymore. he still occ climb ladders and occ is worried about it and gets slow and careful. He does have DDD in bottom 5 vertebrae and mult degenerative changes. His back is stiff a lot. He has done PT in the past and at this point has given up on finding a cure. Walks 3 miles 5 days a week and tries to stay active . Uses an inversion table to prn to avoid sciatica. His sense is his back affects his balance. Doing the exercises over several months, didn't help but back gets tired from his PT exercises. When back gets tired, he starts tog et pain radiating to his buttocks and into back of leg. does report neuropathy. Last chemo was 5 years ago and has had leukemia dx for 31 years. In remission right now and is still regularly checked. hx of B knee replacements. Cyst on liver and gallbadder removed along w/part of liver and gallbladder. Pt reports he feels like his balance started to decline about 5 years w/ last 2-3 years more pronounced . SItting up in a straight backed chair is painful. Drive 10-15 min and has trouble getting straightened up. 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 He used to use a lot of asprin and ibuprofen in the past but cannot use it anymore. Dizziness sometimes when standing to get of chair. Hx L hip replacement. Pt has hx of L MELBA. Prior Treatments and Tests 2017 MRI: IMPRESSION: 1. Multilevel degenerative disc and facet disease, as well ligamentum flavum hypertrophy. 2. Grade I isthmic spondylolisthesis at L5-S1. 3. Severe bilateral L5-S1 foraminal stenosis, with associated flattening deformity of the L5 nerve roots in the neural foramina. Recommend correlation with clinical symptoms to ascertain relevance of this finding. 4. Mild canal and mild to moderate foraminal stenosis at the remaining levels. 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 Patient reports he was able to perform his HEP. AROM trunk rot L< R with more awareness of painful area with rotation left. PT-OP-D Balance Start: 06/12/23 17:14 Freq: Status: Active Protocol: Document 08/21/23 10:37 [facility] (Rec: 08/21/23 11:28 [facility] [id number]) Balance Tests Single Limb Standing Single Limb- Right 30 sec Single Limb- Left >30 sec PT-OP-E Functional Tests Start: 06/12/23 17:14 Freq: Status: Active Protocol: Document 06/17/23 08:03 AB (Rec: 06/17/23 14:07 AB [id number]) Functional Tests Functional Gait Assessment Functional Gait Assessment Impairment 20 to <40% Impaired (Score 19- Rating 24) PT-OP-F Manual Assessment Start: 06/12/23 17:14 Freq: Status: Active Protocol: Document 06/13/23 09:27 [facility] (Rec: 06/13/23 11:19 [facility] [id number]) Manual Assessments Joint Mobility Assessment Joint Mobility Assessment L iliac crest higher; equal greater trochanter B PT-OP-G Mobility & Gait Start: 06/12/23 17:14 Freq: Status: Active Protocol: Document 06/13/23 09:27 [facility] (Rec: 06/13/23 11:19 [facility] [id number]) OP Gait Assessment Comments Gait Comments live out nanny of RLE and lat lean w /wt acceptance on RLE; dec push off B PT-OP-J Posture/Palpation/Skin Start: 06/12/23 17:14 Freq: Status: Active Protocol: Document 08/21/23 10:37 [facility] (Rec: 08/21/23 11:28 [facility] [id number]) Posture Evaluation Tamara Postural Classification System Vertebral Compression Test 4 Lumbar Protective Mechanism Left AP 2 Lumbar Protective Mechanism Right AP 2 Lumbar Protective Mechanism Left PA 4 Lumbar Protective Mechanism Right PA 3 PT-OP-K Range of Motion Start: 06/12/23 17:14 Freq: Status: Active Protocol: Document 06/13/23 09:27 [facility] (Rec: 06/13/23 11:19 [facility] [id number]) Lumbar Spine Range of Motion Lumbar Spine Active Percentage Flexion 50 Extension 20 Rotation Left 50 Rotation Right 75 Lateral Flexion Left 75 Lateral Flexion Right 50 ROM Limitations Pain PT-OP-L Special Tests Start: 06/12/23 17:14 Freq: Status: Active Protocol: Document 06/13/23 09:27 [facility] (Rec: 06/13/23 11:19 [facility] [id number]) Special Tests Lumbar Spine Special Tests Slump Comments some tightness in HS/calf L PT-OP-M Strength Start: 06/12/23 17:14 Freq: Status: Active Protocol: Document 08/21/23 10:37 [facility] (Rec: 08/21/23 11:28 [facility] [id number]) Hip Strength Hip Manual Muscle Testing Right Flexion (L2) 5 Normal Extension (S1) 5 Normal Abduction 5 Normal Adduction 5 Normal External Rotation 5 Normal Internal Rotation 5 Normal Left Flexion (L2) 4+ Good+ Extension (S1) 5 Normal Abduction 5 Normal Adduction 5 Normal External Rotation 4 Good Internal Rotation 5 Normal Comments pain in ant L hip w/flex and ER, IR Knee Strength Knee Manual Muscle Testing Right Flexion (S2) 5 Normal Extension (L3) 5 Normal Left Flexion (S2) 5 Normal Extension (L3) 5 Normal Ankle/Foot Strength Ankle and Foot Manual Muscle Testing Right Dorsiflexion (L4) 5 Normal Plantarflexion (S1) 5 Normal Left Dorsiflexion (L4) 5 Normal Plantarflexion (S1) 5 Normal Comments 20 heel raises B PT-OP-Q Treatments Start: 06/12/23 17:14 Freq: Status: Active Protocol: Document 09/18/23 12:58 AB (Rec: 09/18/23 14:33 AB [id number]) Therapeutic Exercises Supine Exercises piriformis stretch Side bilateral Reps/Minutes one minute X2 each LE Comments Verbal cues for LE position hip flexor stretch edge of bed Side bilateral Reps/Minutes one minute each LE X 2 LTR Side bilateral Reps/Minutes 2 min Comments cues for core engament Standing Exercises standing glute med activation at wall Reps/Minutes one minute X 1 each LE Comments Verbal and visual cues Manual Therapy Treatment Soft Tissue Mobilization left piriformis Body Location left Mobilization Type Rolling Intensity/Depth Moderate Body Position Sidelying Comments w/sciatic n glide LS nerve slacking bilateral glute/piriformis Body Location left LS and intervertebral tissue Intensity/Depth Moderate Body Position Sidelying Manual Techniques MET for left AI right PI and pubic shotgun Type MET Body Location SI Body Position Hooklying Reps/Duration 6X6 each Comments Verbal cues, monitored for pain PT-OP-T Assessment and Plan Start: 06/12/23 17:14 Freq: Status: Active Protocol: Document 09/18/23 12:58 AB (Rec: 09/18/23 14:33 AB [id number]) Physical Therapy Assessment Goals posture Impairment VCT 1/5 [facility] Goal (LTG) Pt will improve VCT to at least 4/5 to show improved postural alignment to allow improved stability and dec pain. 07/15-improved to 2/5 LTG Duration achieved 5/ strength Short Term Goal (STG) Pt will be indep w/hEP STG Duration achieved advancing as able [employer] Goal (LTG) Pt will score 5/5 on BLE MMT and at least 4/5 on LPM in all planes to show improved stability to improve balance and strength. 07/15-improved 5/-improved LTG Duration 7/ activity Short Term Goal (STG) Pt will be able to drive to his mailbox at post office without inc back pain. 07/03/2023 Patient reports having less pain when getting in and out of the car to get the mail. 5/1-loosens up by the time gets to the door vs maintaining tightness. Not as painfull just stiffness STG Duration 09/18 [facility] Goal (LTG) Pt will be able to drive for 1 hour and do yard/housework w/ o back pain greater than 3/10 07/15-stiff after; went to [place] (3 hr) and it took about 10 min before felt he can walk-08/29 08/20-yard/housework 2-06/29 achieved; drive 1 hour-2-06/29 LTG Duration achieved 08/20 balance Short Term Goal (STG) Pt will be able to RLE SLS for at least 15 sec 07/15-10 sec R; 30 sec L STG Duration achieved [employer] Goal (LTG) Pt will be able to do SLS B w/ good alignment for 30 sec ea and at least 25/30 on FGA to show improved balance. LTG Duration achieved Assessment Summary Assessment Patient reports standing hip rotation feels the same AROM left and right, no pain with rotation left end of session. Physical Therapy Plan Frequency and Duration Frequency of Treatment 1x/Week Duration of treatment (weeks) 8 Plan of Care Start Date 08/21/23 Plan of Care End Date 10/24/23 Next Visit Focus/Plan Next Note Type Treatment Note Next Visit Plan Possibly trial of bird dog with 1 lb weight in UE's, possibly progress sidelying clamshell with band to side plank position
--- NOTE | 2023-09-18 16:30 | PT.OTN ---
Current Diagnoses Low back pain, unspecified (09/18/23) Difficulty in walking, not elsewhere classified (09/18/23) Other abnormalities of gait and mobility (09/18/23) Abnormal posture (09/18/23) Weakness (09/18/23) Physical Therapy Treatment Note PT-OP-A Visit Information Start: 06/12/23 17:14 Freq: Status: Active Protocol: Document 09/18/23 12:58 AB (Rec: 09/18/23 14:33 AB [id number]) Out-Patient Physical Therapy Visit Information Visit Information Visit Type Treatment Note Visit Note Access Code [email or web address] Visit Start Time 13:48 Visit Stop Time 16:31 Visit Number 16 Number of TUB RIDER Visits 2 PT-OP-B Current Condition Start: 06/12/23 17:14 Freq: Status: Active Protocol: Document 06/13/23 09:27 [facility] (Rec: 06/13/23 11:19 [facility] [id number]) Current Condition History of Current Condition Current Complaints back pain & dec balance History of Current Condition Pt reports he has had really good balance all his life and don't trust it anymore. he still occ climb ladders and occ is worried about it and gets slow and careful. He does have DDD in bottom 5 vertebrae and mult degenerative changes. His back is stiff a lot. He has done PT in the past and at this point has given up on finding a cure. Walks 3 miles 5 days a week and tries to stay active . Uses an inversion table to prn to avoid sciatica. His sense is his back affects his balance. Doing the exercises over several months, didn't help but back gets tired from his PT exercises. When back gets tired, he starts tog et pain radiating to his buttocks and into back of leg. does report neuropathy. Last chemo was 5 years ago and has had leukemia dx for 31 years. In remission right now and is still regularly checked. hx of B knee replacements. Cyst on liver and gallbadder removed along w/part of liver and gallbladder. Pt reports he feels like his balance started to decline about 5 years w/ last 2-3 years more pronounced . SItting up in a straight backed chair is painful. Drive 10-15 min and has trouble getting straightened up. 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 He used to use a lot of asprin and ibuprofen in the past but cannot use it anymore. Dizziness sometimes when standing to get of chair. Hx L hip replacement. Pt has hx of L MELBA. Prior Treatments and Tests 2017 MRI: IMPRESSION: 1. Multilevel degenerative disc and facet disease, as well ligamentum flavum hypertrophy. 2. Grade I isthmic spondylolisthesis at L5-S1. 3. Severe bilateral L5-S1 foraminal stenosis, with associated flattening deformity of the L5 nerve roots in the neural foramina. Recommend correlation with clinical symptoms to ascertain relevance of this finding. 4. Mild canal and mild to moderate foraminal stenosis at the remaining levels. 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 Patient reports he was able to perform his HEP. AROM trunk rot L< R with more awareness of painful area with rotation left. PT-OP-D Balance Start: 06/12/23 17:14 Freq: Status: Active Protocol: Document 08/21/23 10:37 [facility] (Rec: 08/21/23 11:28 [facility] [id number]) Balance Tests Single Limb Standing Single Limb- Right 30 sec Single Limb- Left >30 sec PT-OP-E Functional Tests Start: 06/12/23 17:14 Freq: Status: Active Protocol: Document 06/17/23 08:03 AB (Rec: 06/17/23 14:07 AB [id number]) Functional Tests Functional Gait Assessment Functional Gait Assessment Impairment 20 to <40% Impaired (Score 19- Rating 24) PT-OP-F Manual Assessment Start: 06/12/23 17:14 Freq: Status: Active Protocol: Document 06/13/23 09:27 [facility] (Rec: 06/13/23 11:19 [facility] [id number]) Manual Assessments Joint Mobility Assessment Joint Mobility Assessment L iliac crest higher; equal greater trochanter B PT-OP-G Mobility & Gait Start: 06/12/23 17:14 Freq: Status: Active Protocol: Document 06/13/23 09:27 [facility] (Rec: 06/13/23 11:19 [facility] [id number]) OP Gait Assessment Comments Gait Comments city rout[place] of RLE and lat lean w /wt acceptance on RLE; dec push off B PT-OP-J Posture/Palpation/Skin Start: 06/12/23 17:14 Freq: Status: Active Protocol: Document 08/21/23 10:37 [facility] (Rec: 08/21/23 11:28 [facility] [id number]) Posture Evaluation Tamara Postural Classification System Vertebral Compression Test 4 Lumbar Protective Mechanism Left AP 2 Lumbar Protective Mechanism Right AP 2 Lumbar Protective Mechanism Left PA 4 Lumbar Protective Mechanism Right PA 3 PT-OP-K Range of Motion Start: 06/12/23 17:14 Freq: Status: Active Protocol: Document 06/13/23 09:27 [facility] (Rec: 06/13/23 11:19 [facility] [id number]) Lumbar Spine Range of Motion Lumbar Spine Active Percentage Flexion 50 Extension 20 Rotation Left 50 Rotation Right 75 Lateral Flexion Left 75 Lateral Flexion Right 50 ROM Limitations Pain PT-OP-L Special Tests Start: 06/12/23 17:14 Freq: Status: Active Protocol: Document 06/13/23 09:27 [facility] (Rec: 06/13/23 11:19 [facility] [id number]) Special Tests Lumbar Spine Special Tests Slump Comments some tightness in HS/calf L PT-OP-M Strength Start: 06/12/23 17:14 Freq: Status: Active Protocol: Document 08/21/23 10:37 [facility] (Rec: 08/21/23 11:28 [facility] [id number]) Hip Strength Hip Manual Muscle Testing Right Flexion (L2) 5 Normal Extension (S1) 5 Normal Abduction 5 Normal Adduction 5 Normal External Rotation 5 Normal Internal Rotation 5 Normal Left Flexion (L2) 4+ Good+ Extension (S1) 5 Normal Abduction 5 Normal Adduction 5 Normal External Rotation 4 Good Internal Rotation 5 Normal Comments pain in ant L hip w/flex and ER, IR Knee Strength Knee Manual Muscle Testing Right Flexion (S2) 5 Normal Extension (L3) 5 Normal Left Flexion (S2) 5 Normal Extension (L3) 5 Normal Ankle/Foot Strength Ankle and Foot Manual Muscle Testing Right Dorsiflexion (L4) 5 Normal Plantarflexion (S1) 5 Normal Left Dorsiflexion (L4) 5 Normal Plantarflexion (S1) 5 Normal Comments 20 heel raises B PT-OP-Q Treatments Start: 06/12/23 17:14 Freq: Status: Active Protocol: Document 09/18/23 12:58 AB (Rec: 09/18/23 14:33 AB [id number]) Therapeutic Exercises Supine Exercises piriformis stretch Side bilateral Reps/Minutes one minute X2 each LE Comments Verbal cues for LE position hip flexor stretch edge of bed Side bilateral Reps/Minutes one minute each LE X 2 LTR Side bilateral Reps/Minutes 2 min Comments cues for core engament Standing Exercises standing glute med activation at wall Reps/Minutes one minute X 1 each LE Comments Verbal and visual cues Manual Therapy Treatment Soft Tissue Mobilization left piriformis Body Location left Mobilization Type Rolling Intensity/Depth Moderate Body Position Sidelying Comments w/sciatic n glide LS nerve slacking bilateral glute/piriformis Body Location left LS and intervertebral tissue Intensity/Depth Moderate Body Position Sidelying Manual Techniques MET for left AI right PI and pubic shotgun Type MET Body Location SI Body Position Hooklying Reps/Duration 6X6 each Comments Verbal cues, monitored for pain PT-OP-T Assessment and Plan Start: 06/12/23 17:14 Freq: Status: Active Protocol: Document 09/18/23 12:58 AB (Rec: 09/18/23 14:33 AB [id number]) Physical Therapy Assessment Goals posture Impairment VCT 1/5 [facility] Goal (LTG) Pt will improve VCT to at least 4/5 to show improved postural alignment to allow improved stability and dec pain. 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 07/15-improved 5/-improved LTG Duration 7/ activity Short Term Goal (STG) Pt will be able to drive to his mailbox at post office without inc back pain. 07/03/2023 Patient reports having less pain when getting in and out of the car to get the mail. 5/1-loosens up by the time gets to the door vs maintaining tightness. Not as painfull just stiffness STG Duration 09/18 [facility] Goal (LTG) Pt will be able to drive for 1 hour and do yard/housework w/ o back pain greater than 3/10 07/15-stiff after; went to [place] (3 hr) and it took about 10 min before felt he can walk-08/29 08/20-yard/housework 2-06/29 achieved; drive 1 hour-2-06/29 LTG Duration achieved 08/20 balance Short Term Goal (STG) Pt will be able to RLE SLS for at least 15 sec 07/15-10 sec R; 30 sec L STG Duration achieved [employer] Goal (LTG) Pt will be able to do SLS B w/ good alignment for 30 sec ea and at least 25/30 on FGA to show improved balance. LTG Duration achieved Assessment Summary Assessment Patient reports standing hip rotation feels the same AROM left and right, no pain with rotation left end of session. Physical Therapy Plan Frequency and Duration Frequency of Treatment 1x/Week Duration of treatment (weeks) 8 Plan of Care Start Date 08/21/23 Plan of Care End Date 10/24/23 Next Visit Focus/Plan Next Note Type Treatment Note Next Visit Plan Possibly trial of bird dog with 1 lb weight in UE's, possibly progress sidelying clamshell with band to side plank position
--- NOTE | 2023-09-25 17:27 | PT.OTN ---
Current Diagnoses Low back pain, unspecified (09/25/23) Difficulty in walking, not elsewhere classified (09/25/23) Other abnormalities of gait and mobility (09/25/23) Abnormal posture (09/25/23) Weakness (09/25/23) Physical Therapy Treatment Note PT-OP-A Visit Information Start: 06/12/23 17:14 Freq: Status: Active Protocol: Document 09/25/23 15:20 [facility] (Rec: 09/25/23 18:14 [facility] [id number]) Out-Patient Physical Therapy Visit Information Visit Information Visit Type Progress Note Visit Note Access Code [email or web address] Visit Start Time 15:20 Visit Stop Time 16:00 Visit Number 17 Number of CAR CHECKER Visits 0 PT-OP-B Current Condition Start: 06/12/23 17:14 Freq: Status: Active Protocol: Document 06/13/23 09:27 [facility] (Rec: 06/13/23 11:19 [facility] [id number]) Current Condition History of Current Condition Current Complaints back pain & dec balance History of Current Condition Pt reports he has had really good balance all his life and don't trust it anymore. he still occ climb ladders and occ is worried about it and gets slow and careful. He does have DDD in bottom 5 vertebrae and mult degenerative changes. His back is stiff a lot. He has done PT in the past and at this point has given up on finding a cure. Walks 3 miles 5 days a week and tries to stay active . Uses an inversion table to prn to avoid sciatica. His sense is his back affects his balance. Doing the exercises over several months, didn't help but back gets tired from his PT exercises. When back gets tired, he starts tog et pain radiating to his buttocks and into back of leg. does report neuropathy. Last chemo was 5 years ago and has had leukemia dx for 31 years. In remission right now and is still regularly checked. hx of B knee replacements. Cyst on liver and gallbadder removed along w/part of liver and gallbladder. Pt reports he feels like his balance started to decline about 5 years w/ last 2-3 years more pronounced . SItting up in a straight backed chair is painful. Drive 10-15 min and has trouble getting straightened up. 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 He used to use a lot of asprin and ibuprofen in the past but cannot use it anymore. Dizziness sometimes when standing to get of chair. Hx L hip replacement. Pt has hx of L MELBA. Prior Treatments and Tests 2018 MRI: IMPRESSION: 1. Multilevel degenerative disc and facet disease, as well ligamentum flavum hypertrophy. 2. Grade I isthmic spondylolisthesis at L5-S1. 3. Severe bilateral L5-S1 foraminal stenosis, with associated flattening deformity of the L5 nerve roots in the neural foramina. Recommend correlation with clinical symptoms to ascertain relevance of this finding. 4. Mild canal and mild to moderate foraminal stenosis at the remaining levels. Treatment Goals Patient/Caregiver Goals Improve balance, find a way to cope better w/back, be able to yard work w/less repercussion; be able drive longer distances PT-OP-C Subjective Start: 06/12/23 17:14 Freq: Status: Active Protocol: Document 09/25/23 15:20 [facility] (Rec: 09/25/23 18:14 [facility] [id number]) OP-PT Subjective Patient Comments Patient Comments Pt reports had out of no where had B post thigh and L calf burn and limped back from a walk. He stopped taking them for 2 nights but hasn't talked to his doctor. Plans to call after a week. Wants to see if this dec symptoms. He notices his mm soreness doesn't go away from doing his exercises. If he does the exercises, he feels tired and uncomfortable and like he doens't want to do more. This is about a week ago. It got kind of better without doing exercises and went back to exercises ok. His leg is better since stopping taking the statin even w/ strain of inc yard work. PT-OP-D Balance Start: 06/12/23 17:14 Freq: Status: Active Protocol: Document 08/21/23 10:37 [facility] (Rec: 08/21/23 11:28 [facility] [id number]) Balance Tests Single Limb Standing Single Limb- Right 30 sec Single Limb- Left >30 sec PT-OP-E Functional Tests Start: 06/12/23 17:14 Freq: Status: Active Protocol: Document 06/17/23 08:03 [facility] (Rec: 06/17/23 14:07 [facility] [id number]) Functional Tests Functional Gait Assessment Functional Gait Assessment Impairment 20 to <40% Impaired (Score 19- Rating 24) PT-OP-F Manual Assessment Start: 06/12/23 17:14 Freq: Status: Active Protocol: Document 06/13/23 09:27 [facility] (Rec: 06/13/23 11:19 [facility] [id number]) Manual Assessments Joint Mobility Assessment Joint Mobility Assessment L iliac crest higher; equal greater trochanter B PT-OP-G Mobility & Gait Start: 06/12/23 17:14 Freq: Status: Active Protocol: Document 06/13/23 09:27 [facility] (Rec: 06/13/23 11:19 [facility] [id number]) OP Gait Assessment Comments Gait Comments roustabout head of RLE and lat lean w /wt acceptance on RLE; dec push off B PT-OP-J Posture/Palpation/Skin Start: 06/12/23 17:14 Freq: Status: Active Protocol: Document 09/25/23 15:20 [facility] (Rec: 09/25/23 18:14 [facility] [id number]) Posture Evaluation Tamara Postural Classification System Vertebral Compression Test 5 Elbow Flexion Test 4 Lumbar Protective Mechanism Left AP 2 Lumbar Protective Mechanism Right AP 1 Lumbar Protective Mechanism Left PA 3 Lumbar Protective Mechanism Right PA 2 PT-OP-K Range of Motion Start: 06/12/23 17:14 Freq: Status: Active Protocol: Document 06/13/23 09:27 [facility] (Rec: 06/13/23 11:19 [facility] [id number]) Lumbar Spine Range of Motion Lumbar Spine Active Percentage Flexion 50 Extension 20 Rotation Left 50 Rotation Right 75 Lateral Flexion Left 75 Lateral Flexion Right 50 ROM Limitations Pain PT-OP-L Special Tests Start: 06/12/23 17:14 Freq: Status: Active Protocol: Document 06/13/23 09:27 [facility] (Rec: 06/13/23 11:19 [facility] [id number]) Special Tests Lumbar Spine Special Tests Slump Comments some tightness in HS/calf L PT-OP-M Strength Start: 06/12/23 17:14 Freq: Status: Active Protocol: Document 09/25/23 15:20 [facility] (Rec: 09/25/23 18:14 [facility] [id number]) Hip Strength Hip Manual Muscle Testing Right Flexion (L2) 5 Normal Extension (S1) 4 Good Abduction 5 Normal Adduction 5 Normal External Rotation 5 Normal Internal Rotation 5 Normal Comments pain in L groin w/hip ext Left Flexion (L2) 5 Normal Extension (S1) 5 Normal Abduction 5 Normal Adduction 5 Normal External Rotation 5 Normal Internal Rotation 5 Normal Comments pain in groin hip Knee Strength Knee Manual Muscle Testing Right Flexion (S2) 5 Normal Extension (L3) 5 Normal Left Flexion (S2) 5 Normal Extension (L3) 5 Normal Ankle/Foot Strength Ankle and Foot Manual Muscle Testing Right Dorsiflexion (L4) 5 Normal Plantarflexion (S1) 5 Normal Left Dorsiflexion (L4) 5 Normal Plantarflexion (S1) 5 Normal Comments 20 heel raises B PT-OP-Q Treatments Start: 06/12/23 17:14 Freq: Status: Active Protocol: Document 09/25/23 15:20 [facility] (Rec: 09/25/23 18:14 [facility] [id number]) Therapeutic Exercises Other Exercises isometrics Other Exercise Name MMT and LPM & VCT Side bilateral Reps/Minutes 8 min Manual Therapy Treatment Soft Tissue Mobilization HS Body Location L btwn mm borders Mobilization Type Rolling Intensity/Depth Moderate Comments w/SLR and active HS stretch left piriformis Body Location L pifiromis and glutes Mobilization Type Rolling Intensity/Depth Moderate Joint Mobilizations lumbar Body Position Sitting Comments L 4 and 5 up glide and UPA R FM sacrum Comments PA L FM seated hip Joint L inf FM Body Position Hooklying Neuro Re-Education Treatment Other Activities PNF Reps/Duration 4min Comments core facilitation w/ant elevation pattern w/LLE progressed to sustained holds Self-Care/Home Management Treatment Education Other Education 8 min: edu to discuss meds w/ MD as it is importance w/some meds to be careful coming off them. Edu to pt cont HEP and to pay attention to leg pain. Discussed how some could have been neural symptoms based on positive ext sit today PT-OP-T Assessment and Plan Start: 06/12/23 17:14 Freq: Status: Active Protocol: Document 09/25/23 15:20 [facility] (Rec: 09/25/23 18:14 [facility] [id number]) Physical Therapy Assessment Goals posture Impairment VCT 1/5 Regulatory Assistant Goal (LTG) Pt will improve VCT to at least 4/5 to show improved postural alignment to allow improved stability and dec pain. 07/15-improved to 2/5 LTG Duration achieved 5/ strength Short Term Goal (STG) Pt will be indep w/hEP STG Duration achieved advancing as able Regulatory Assistant Goal (LTG) Pt will score 5/5 on BLE MMT and at least 4/5 on LPM in all planes to show improved stability to improve balance and strength. 07/15-improved 08/20-improved 09/24-overall improved some dec in R hip ext today LTG Duration 11/16 activity Short Term Goal (STG) Pt will be able to drive to his mailbox at post office without inc back pain. 07/03/2023 Patient reports having less pain when getting in and out of the car to get the mail. 08/20-loosens up by the time gets to the door vs maintaining tightness. Not as painfull just stiffness 09/24-much improved since start, just stiff STG Duration 10/20 Halfway Goal (LTG) Pt will be able to drive for 1 hour and do yard/housework w/ o back pain greater than 3/10 07/15-stiff after; went to [place] (3 hr) and it took about 10 min before felt he can walk-508/20-yard/housework 2-06/29 achieved; drive 1 hour-2-3 LTG Duration achieved 08/20 balance Short Term Goal (STG) Pt will be able to RLE SLS for at least 15 sec 07/15-10 sec R; 30 sec L STG Duration achieved Halfway Goal (LTG) Pt will be able to do SLS B w/ good alignment for 30 sec ea and at least 25/30 on FGA to show improved balance. LTG Duration achieved Assessment Summary Assessment Ext sit test positive and L SLR but improved to just mild HS tightness w/equal ROM to other side after treatment today. Pt cont to feel improvement w/PT and note improved back pain overall and feeling of improved steadiness d/t this. He shows overall improved posture and today w/inc pain had dec core which improved after manual. Pt to cont PT to work on inc functional mobility with less pain. Physical Therapy Plan Frequency and Duration Frequency of Treatment Every Other Week Duration of treatment (weeks) 8 Plan of Care Start Date 09/25/23 Plan of Care End Date 11/20/23 Therapeutic Interventions Therapeutic Interventions Balance Training,Gait Training ,Home Exercise Program,Joint Mobilizations,Manual Therapy, Neuromuscular Re-education, Orthotic/Prosthetic Management ,Patient/Caregiver Education, Self-Care/Home Management,Soft Tissue Mobilization,Taping, Therapeutic Activities, Therapeutic Exercises, Vestibular Rehabilitation Next Visit Focus/Plan Next Note Type Treatment Note Next Visit Plan assess possibly of DC and review HEP; follow up as needed w/pt and progress towards DC
--- NOTE | 2023-09-25 17:28 | PT.OPPOC ---
Physical, Occupational & Speech Therapy At [facility] Current Diagnoses Low back pain, unspecified (09/25/23) Difficulty in walking, not elsewhere classified (09/25/23) Other abnormalities of gait and mobility (09/25/23) Abnormal posture (09/25/23) Weakness (09/25/23) Visit Care Team Role Provider Type Jj La MD Attending Provider Physician Family Provider Primary Care Provider Referring Provider Specialty: Family Practice Address: [address] [place] [address], [facility] Email: [email or web address] Plan Of Care PT-OP-T Assessment and Plan Start: 06/12/23 17:14 Freq: Status: Active Protocol: Document 09/25/23 15:20 [facility] (Rec: 09/25/23 18:14 [facility] [id number]) Physical Therapy Assessment Goals posture Impairment VCT / Mcfp Goal (LTG) Pt will improve VCT to at least 4/5 to show improved postural alignment to allow improved stability and dec pain. 07/15-improved to 2/5 LTG Duration achieved 08/20 strength Short Term Goal (STG) Pt will be indep w/hEP STG Duration achieved advancing as able Mcfp Goal (LTG) Pt will score 5/5 on BLE MMT and at least 4/5 on LPM in all planes to show improved stability to improve balance and strength. 07/15-improved 08/20-improved 09/24-overall improved some dec in R hip ext today LTG Duration 11/16 activity Short Term Goal (STG) Pt will be able to drive to his mailbox at post office without inc back pain. 07/03/2023 Patient reports having less pain when getting in and out of the car to get the mail. 08/20-loosens up by the time gets to the door vs maintaining tightness. Not as painfull just stiffness 09/24-much improved since start, just stiff STG Duration 10/20 Mcfp Goal (LTG) Pt will be able to drive for 1 hour and do yard/housework w/ o back pain greater than 3/10 07/15-stiff after; went to [place] (3 hr) and it took about 10 min before felt he can walk-5/10 08/20-yard/housework 2-310 achieved; drive 1 hour-2-310 LTG Duration achieved 08/20 balance Short Term Goal (STG) Pt will be able to RLE SLS for at least 15 sec /-10 sec R; 30 sec L STG Duration achieved Mcfp Goal (LTG) Pt will be able to do SLS B w/ good alignment for 30 sec ea and at least 25/30 on FGA to show improved balance. LTG Duration achieved Assessment Summary Assessment Ext sit test positive and L SLR but improved to just mild HS tightness w/equal ROM to other side after treatment today. Pt cont to feel improvement w/PT and note improved back pain overall and feeling of improved steadiness d/t this. He shows overall improved posture and today w/inc pain had dec core which improved after manual. Pt to cont PT to work on inc functional mobility with less pain. Physical Therapy Plan Frequency and Duration Frequency of Treatment Every Other Week Duration of treatment (weeks) 8 Plan of Care Start Date 09/25/23 Plan of Care End Date 11/20/23 Therapeutic Interventions Therapeutic Interventions Balance Training,Gait Training ,Home Exercise Program,Joint Mobilizations,Manual Therapy, Neuromuscular Re-education, Orthotic/Prosthetic Management ,Patient/Caregiver Education, Self-Care/Home Management,Soft Tissue Mobilization,Taping, Therapeutic Activities, Therapeutic Exercises, Vestibular Rehabilitation Next Visit Focus/Plan Next Note Type Treatment Note Next Visit Plan assess possibly of DC and review HEP; follow up as needed w/pt and progress towards DC Plan of Care Dates Plan of Care Start Date 09/25/23 Plan of Care End Date 11/20/23 Electronically Signed by: Nga Black, PT 09/29/23 [id number] If you are in agreement with this Plan of Care, please return a signed and dated copy. I have reviewed this Plan of Care and certify that the skilled therapy services above are required to meet the patient?s needs. Physician Signature Date Printed Name and Credentials Clinical Instructor Signature Printed Name and Credentials
--- NOTE | 2023-10-02 15:39 | PT.OTN ---
Current Diagnoses Low back pain, unspecified (10/02/23) Difficulty in walking, not elsewhere classified (10/02/23) Other abnormalities of gait and mobility (10/02/23) Abnormal posture (10/02/23) Weakness (10/02/23) Physical Therapy Treatment Note PT-OP-A Visit Information Start: 06/12/23 17:14 Freq: Status: Active Protocol: Document 10/02/23 13:53 [facility] (Rec: 10/02/23 15:38 [facility] [id number]) Out-Patient Physical Therapy Visit Information Visit Information Visit Note Access Code [email or web address] Visit Start Time 13:52 Visit Stop Time 14:32 Visit Number 18 Number of METALLURGIST PROCESS Visits 0 PT-OP-B Current Condition Start: 06/12/23 17:14 Freq: Status: Active Protocol: Document 06/13/23 09:27 [facility] (Rec: 06/13/23 11:19 [facility] [id number]) Current Condition History of Current Condition Current Complaints back pain & dec balance History of Current Condition Pt reports he has had really good balance all his life and don't trust it anymore. he still occ climb ladders and occ is worried about it and gets slow and careful. He does have DDD in bottom 5 vertebrae and mult degenerative changes. His back is stiff a lot. He has done PT in the past and at this point has given up on finding a cure. Walks 3 miles 5 days a week and tries to stay active . Uses an inversion table to prn to avoid sciatica. His sense is his back affects his balance. Doing the exercises over several months, didn't help but back gets tired from his PT exercises. When back gets tired, he starts tog et pain radiating to his buttocks and into back of leg. does report neuropathy. Last chemo was 5 years ago and has had leukemia dx for 31 years. In remission right now and is still regularly checked. hx of B knee replacements. Cyst on liver and gallbadder removed along w/part of liver and gallbladder. Pt reports he feels like his balance started to decline about 5 years w/ last 2-3 years more pronounced . SItting up in a straight backed chair is painful. Drive 10-15 min and has trouble getting straightened up. 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 He used to use a lot of asprin and ibuprofen in the past but cannot use it anymore. Dizziness sometimes when standing to get of chair. Hx L hip replacement. Pt has hx of L MELBA. Prior Treatments and Tests 2017 MRI: IMPRESSION: 1. Multilevel degenerative disc and facet disease, as well ligamentum flavum hypertrophy. 2. Grade I isthmic spondylolisthesis at L5-S1. 3. Severe bilateral L5-S1 foraminal stenosis, with associated flattening deformity of the L5 nerve roots in the neural foramina. Recommend correlation with clinical symptoms to ascertain relevance of this finding. 4. Mild canal and mild to moderate foraminal stenosis at the remaining levels. Treatment Goals Patient/Caregiver Goals Improve balance, find a way to cope better w/back, be able to yard work w/less repercussion; be able drive longer distances PT-OP-C Subjective Start: 06/12/23 17:14 Freq: Status: Active Protocol: Document 10/02/23 13:53 [facility] (Rec: 10/02/23 15:38 [facility] [id number]) OP-PT Subjective Patient Comments Patient Comments Pt reports he feels like since being off the statin has made his back and legs are a lot better. He feels like he has a significantly higher threshold of activity. did stoop activity in garden for 2 hours and was able to walk it off. feels better in AMs now PT-OP-D Balance Start: 06/12/23 17:14 Freq: Status: Active Protocol: Document 08/21/23 10:37 [facility] (Rec: 08/21/23 11:28 [facility] [id number]) Balance Tests Single Limb Standing Single Limb- Right 30 sec Single Limb- Left >30 sec PT-OP-E Functional Tests Start: 06/12/23 17:14 Freq: Status: Active Protocol: Document 06/17/23 08:03 [facility] (Rec: 06/17/23 14:07 [facility] [id number]) Functional Tests Functional Gait Assessment Functional Gait Assessment Impairment 20 to <40% Impaired (Score 19- Rating 24) PT-OP-F Manual Assessment Start: 06/12/23 17:14 Freq: Status: Active Protocol: Document 06/13/23 09:27 [facility] (Rec: 06/13/23 11:19 [facility] [id number]) Manual Assessments Joint Mobility Assessment Joint Mobility Assessment L iliac crest higher; equal greater trochanter B PT-OP-G Mobility & Gait Start: 06/12/23 17:14 Freq: Status: Active Protocol: Document 06/13/23 09:27 [facility] (Rec: 06/13/23 11:19 [facility] [id number]) OP Gait Assessment Comments Gait 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 w /wt acceptance on RLE; dec push off B PT-OP-J Posture/Palpation/Skin Start: 06/12/23 17:14 Freq: Status: Active Protocol: Document 09/25/23 15:20 [facility] (Rec: 09/25/23 18:14 [facility] [id number]) Posture Evaluation [facility] Postural Classification System Vertebral Compression Test 5 Elbow Flexion Test 4 Lumbar Protective Mechanism Left AP 2 Lumbar Protective Mechanism Right AP 1 Lumbar Protective Mechanism Left PA 3 Lumbar Protective Mechanism Right PA 2 PT-OP-K Range of Motion Start: 06/12/23 17:14 Freq: Status: Active Protocol: Document 06/13/23 09:27 [facility] (Rec: 06/13/23 11:19 [facility] [id number]) Lumbar Spine Range of Motion Lumbar Spine Active Percentage Flexion 50 Extension 20 Rotation Left 50 Rotation Right 75 Lateral Flexion Left 75 Lateral Flexion Right 50 ROM Limitations Pain PT-OP-L Special Tests Start: 06/12/23 17:14 Freq: Status: Active Protocol: Document 06/13/23 09:27 [facility] (Rec: 06/13/23 11:19 [facility] [id number]) Special Tests Lumbar Spine Special Tests Slump Comments some tightness in HS/calf L PT-OP-M Strength Start: 06/12/23 17:14 Freq: Status: Active Protocol: Document 09/25/23 15:20 [facility] (Rec: 09/25/23 18:14 [facility] [id number]) Hip Strength Hip Manual Muscle Testing Right Flexion (L2) 5 Normal Extension (S1) 4 Good Abduction 5 Normal Adduction 5 Normal External Rotation 5 Normal Internal Rotation 5 Normal Comments pain in L groin w/hip ext Left Flexion (L2) 5 Normal Extension (S1) 5 Normal Abduction 5 Normal Adduction 5 Normal External Rotation 5 Normal Internal Rotation 5 Normal Comments pain in groin hip Knee Strength Knee Manual Muscle Testing Right Flexion (S2) 5 Normal Extension (L3) 5 Normal Left Flexion (S2) 5 Normal Extension (L3) 5 Normal Ankle/Foot Strength Ankle and Foot Manual Muscle Testing Right Dorsiflexion (L4) 5 Normal Plantarflexion (S1) 5 Normal Left Dorsiflexion (L4) 5 Normal Plantarflexion (S1) 5 Normal Comments 20 heel raises B PT-OP-Q Treatments Start: 06/12/23 17:14 Freq: Status: Active Protocol: Document 10/02/23 13:53 [facility] (Rec: 10/02/23 15:38 [facility] [id number]) Therapeutic Exercises Supine Exercises piriformis stretch Side bilateral Reps/Minutes 15 sec abdominal bracing with heel slide Supine Exercise Name 1. leg down btwn 2. bug 3 . w/o bringing foot down Side bilateral Reps/Minutes 8 ea Sidelying Exercises clamshell Side bilateral Equipment Used L3 Reps/Minutes 10 Comments cues for position to avoid rolling back Standing Exercises squat with band Standing Exercise Name tap to chair Side bilateral Equipment Used level 3 band Reps/Minutes 15 Comments cues for full hp ext at top Other Exercises quadruped bird dog Other Exercise Name w/hands on counter Side bilateral Reps/Minutes 2x8 Comments cues neutral spine Calf stretch on stair Side bilateral Equipment Used stair Reps/Minutes 60sec Manual Therapy Treatment Soft Tissue Mobilization LB Body Location ES R Mobilization Type Rolling,Strumming Intensity/Depth Moderate Body Position Sidelying Joint Mobilizations lumbar Comments s/l transverse L FM L2-4 Self-Care/Home Management Treatment Education Other Education 12 min: discussion of exercises and cont plan to follow up w/PT as needed in next month otherwise follow up . review of importance of stablity w/HEP and why stability exercises will help pain so focus on isolating LE movement from spinal movement PT-OP-T Assessment and Plan Start: 06/12/23 17:14 Freq: Status: Active Protocol: Document 10/02/23 13:53 [facility] (Rec: 10/02/23 15:38 [facility] [id number]) Physical Therapy Assessment Goals posture Impairment VCT 1/5 Steam Room Attendant Goal (LTG) Pt will improve VCT to at least 4/5 to show improved postural alignment to allow improved stability and dec pain. 07/15-improved to 2/5 LTG Duration achieved 5/ strength Short Term Goal (STG) Pt will be indep w/hEP STG Duration achieved advancing as able Steam Room Attendant Goal (LTG) Pt will score 5/5 on BLE MMT and at least 4/5 on LPM in all planes to show improved stability to improve balance and strength. 07/15-improved 08/20-improved 09/24-overall improved some dec in R hip ext today LTG Duration 11/16 activity Short Term Goal (STG) Pt will be able to drive to his mailbox at post office without inc back pain. 07/03/2023 Patient reports having less pain when getting in and out of the car to get the mail. 08/20-loosens up by the time gets to the door vs maintaining tightness. Not as painfull just stiffness 09/24-much improved since start, just stiff STG Duration 10/20 Mcfp Goal (LTG) Pt will be able to drive for 1 hour and do yard/housework w/ o back pain greater than 3/10 07/15-stiff after; went to [place] (3 hr) and it took about 10 min before felt he can walk-08/29 08/20-yard/housework 2-06/29 achieved; drive 1 hour-2-3 LTG Duration achieved 08/20 balance Short Term Goal (STG) Pt will be able to RLE SLS for at least 15 sec 07/15-10 sec R; 30 sec L STG Duration achieved Mcfp Goal (LTG) Pt will be able to do SLS B w/ good alignment for 30 sec ea and at least 25/30 on FGA to show improved balance. LTG Duration achieved Assessment Summary Assessment Pt did require some cues w/ exercises today for proper form and slowing down and isolating spine during core exercises. Physical Therapy Plan Frequency and Duration Frequency of Treatment Every Other Week Duration of treatment (weeks) 8 Plan of Care Start Date 09/25/23 Plan of Care End Date 11/20/23 Therapeutic Interventions Therapeutic Interventions Balance Training,Gait Training ,Home Exercise Program,Joint Mobilizations,Manual Therapy, Neuromuscular Re-education, Orthotic/Prosthetic Management ,Patient/Caregiver Education, Self-Care/Home Management,Soft Tissue Mobilization,Taping, Therapeutic Activities, Therapeutic Exercises, Vestibular Rehabilitation Next Visit Focus/Plan Next Note Type Discharge Summary Next Visit Plan assess possibly of DC and review HEP; follow up as needed w/pt and progress towards DC
--- NOTE | 2023-10-30 11:00 | PT.OTN ---
Current Diagnoses Low back pain, unspecified (10/30/23) Difficulty in walking, not elsewhere classified (10/30/23) Other abnormalities of gait and mobility (10/30/23) Abnormal posture (10/30/23) Weakness (10/30/23) Physical Therapy Treatment Note PT-OP-A Visit Information Start: 06/12/23 17:14 Freq: Status: Active Protocol: Document 10/30/23 09:51 [facility] (Rec: 10/30/23 11:00 [facility] [id number]) Out-Patient Physical Therapy Visit Information Visit Information Visit Type Discharge Summary Visit Start Time 09:52 Visit Stop Time 10:30 Visit Number 19 Number of SLUDGE FILTRATION OPERATOR Visits 0 PT-OP-B Current Condition Start: 06/12/23 17:14 Freq: Status: Active Protocol: Document 06/13/23 09:27 [facility] (Rec: 06/13/23 11:19 [facility] [id number]) Current Condition History of Current Condition Current Complaints back pain & dec balance History of Current Condition Pt reports he has had really good balance all his life and don't trust it anymore. he still occ climb ladders and occ is worried about it and gets slow and careful. He does have DDD in bottom 5 vertebrae and mult degenerative changes. His back is stiff a lot. He has done PT in the past and at this point has given up on finding a cure. Walks 3 miles 5 days a week and tries to stay active . Uses an inversion table to prn to avoid sciatica. His sense is his back affects his balance. Doing the exercises over several months, didn't help but back gets tired from his PT exercises. When back gets tired, he starts tog et pain radiating to his buttocks and into back of leg. does report neuropathy. Last chemo was 5 years ago and has had leukemia dx for 31 years. In remission right now and is still regularly checked. hx of B knee replacements. Cyst on liver and gallbadder removed along w/part of liver and gallbladder. Pt reports he feels like his balance started to decline about 5 years w/ last 2-3 years more pronounced . SItting up in a straight backed chair is painful. Drive 10-15 min and has trouble getting straightened up. 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 He used to use a lot of asprin and ibuprofen in the past but cannot use it anymore. Dizziness sometimes when standing to get of chair. Hx L hip replacement. Pt has hx of L MELBA. Prior Treatments and Tests 2018 MRI: IMPRESSION: 1. Multilevel degenerative disc and facet disease, as well ligamentum flavum hypertrophy. 2. Grade I isthmic spondylolisthesis at L5-S1. 3. Severe bilateral L5-S1 foraminal stenosis, with associated flattening deformity of the L5 nerve roots in the neural foramina. Recommend correlation with clinical symptoms to ascertain relevance of this finding. 4. Mild canal and mild to moderate foraminal stenosis at the remaining levels. Treatment Goals Patient/Caregiver Goals Improve balance, find a way to cope better w/back, be able to yard work w/less repercussion; be able drive longer distances PT-OP-C Subjective Start: 06/12/23 17:14 Freq: Status: Active Protocol: Document 10/30/23 09:51 [facility] (Rec: 10/30/23 11:00 [facility] [id number]) OP-PT Subjective Patient Comments Patient Comments Pt reports back gets tired if he does his exercises and walks then his back gets tired . He felt better after a family thing where he didn't do his exercises. He didn't go for walks but did maintence on a house. PT-OP-D Balance Start: 06/12/23 17:14 Freq: Status: Active Protocol: Document 08/21/23 10:37 [facility] (Rec: 08/21/23 11:28 [facility] [id number]) Balance Tests Single Limb Standing Single Limb- Right 30 sec Single Limb- Left >30 sec PT-OP-E Functional Tests Start: 06/12/23 17:14 Freq: Status: Active Protocol: Document 06/17/23 08:03 [facility] (Rec: 06/17/23 14:07 [facility] [id number]) Functional Tests Functional Gait Assessment Functional Gait Assessment Impairment 20 to <40% Impaired (Score 19- Rating 24) PT-OP-F Manual Assessment Start: 06/12/23 17:14 Freq: Status: Active Protocol: Document 06/13/23 09:27 [facility] (Rec: 06/13/23 11:19 [facility] [id number]) Manual Assessments Joint Mobility Assessment Joint Mobility Assessment L iliac crest higher; equal greater trochanter B PT-OP-G Mobility & Gait Start: 06/12/23 17:14 Freq: Status: Active Protocol: Document 06/13/23 09:27 [facility] (Rec: 06/13/23 11:19 [facility] [id number]) OP Gait Assessment Comments 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 w /wt acceptance on RLE; dec push off B PT-OP-J Posture/Palpation/Skin Start: 06/12/23 17:14 Freq: Status: Active Protocol: Document 10/30/23 09:51 [facility] (Rec: 10/30/23 11:00 [facility] [id number]) Posture Evaluation [facility] Postural Classification System Lumbar Protective Mechanism Left AP 3 Lumbar Protective Mechanism Right AP 1 Lumbar Protective Mechanism Left PA 3 Lumbar Protective Mechanism Right PA 3 PT-OP-K Range of Motion Start: 06/12/23 17:14 Freq: Status: Active Protocol: Document 06/13/23 09:27 [facility] (Rec: 06/13/23 11:19 [facility] [id number]) Lumbar Spine Range of Motion Lumbar Spine Active Percentage Flexion 50 Extension 20 Rotation Left 50 Rotation Right 75 Lateral Flexion Left 75 Lateral Flexion Right 50 ROM Limitations Pain PT-OP-L Special Tests Start: 06/12/23 17:14 Freq: Status: Active Protocol: Document 06/13/23 09:27 [facility] (Rec: 06/13/23 11:19 [facility] [id number]) Special Tests Lumbar Spine Special Tests Slump Comments some tightness in HS/calf L PT-OP-M Strength Start: 06/12/23 17:14 Freq: Status: Active Protocol: Document 10/30/23 09:51 [facility] (Rec: 10/30/23 11:00 [facility] [id number]) Hip Strength Hip Manual Muscle Testing Right Extension (S1) 5 Normal Left Extension (S1) 5 Normal PT-OP-Q Treatments Start: 06/12/23 17:14 Freq: Status: Active Protocol: Document 10/30/23 09:51 [facility] (Rec: 10/30/23 11:00 [facility] [id number]) Therapeutic Exercises Sidelying Exercises clamshell Sidelying Exercise Name comfortable range Side bilateral Equipment Used L3 Reps/Minutes 2x10 Comments cues for position to avoid rolling back Standing Exercises standing glute med activation at wall Standing Exercise Name DC d/t pain-inc time spent to dec back pain Reps/Minutes one minute X 1 each LE Comments Verbal and visual cues squat with band Standing Exercise Name tap to chair Side bilateral Equipment Used level 3 band Reps/Minutes 2x10 Comments cues hip hinge Self-Care/Home Management Treatment Education Other Education 13 min: edu for cont exercises for every other day or stretches daily if needed. edu 2x10 vs 3 sets if 3 sets inc pain; edu to work on stabilization of spine w/ exercises to avoid back pain during exercises PT-OP-T Assessment and Plan Start: 06/12/23 17:14 Freq: Status: Active Protocol: Document 10/30/23 09:51 [facility] (Rec: 10/30/23 11:00 [facility] [id number]) Physical Therapy Assessment Goals posture Impairment VCT / Salvage Engineer Goal (LTG) Pt will improve VCT to at least 4/5 to show improved postural alignment to allow improved stability and dec pain. 07/15-improved to 2/5 LTG Duration achieved 08/20 strength Short Term Goal (STG) Pt will be indep w/hEP STG Duration achieved advancing as able Residential Goal (LTG) Pt will score 5/5 on BLE MMT and at least 4/5 on LPM in all planes to show improved stability to improve balance and strength. 07/15-improved 08/20-improved 09/24-overall improved some dec in R hip ext today 10/29-LPM still dec, but 5/5 B hip ext LTG Duration 11/16 activity Short Term Goal (STG) Pt will be able to drive to his mailbox at post office without inc back pain. 07/03/2023 Patient reports having less pain when getting in and out of the car to get the mail. 08/20-loosens up by the time gets to the door vs maintaining tightness. Not as painfull just stiffness 09/24-much improved since start, just stiff STG Duration dec tightness now Salvage Engineer Goal (LTG) Pt will be able to drive for 1 hour and do yard/housework w/ o back pain greater than 3/10 07/15-stiff after; went to [place] (3 hr) and it took about 10 min before felt he can walk-08/29 08/20-yard/housework 2-06/29 achieved; drive 1 hour-2-06/29 LTG Duration achieved 5 balance Short Term Goal (STG) Pt will be able to RLE SLS for at least 15 sec 07/15-10 sec R; 30 sec L STG Duration achieved Residential Goal (LTG) Pt will be able to do SLS B w/ good alignment for 30 sec ea and at least 25/30 on FGA to show improved balance. LTG Duration achieved Assessment Summary Assessment inc time for focus on exercises form and slowing pt down w/motions. overlal doing well with exercises but does need cues for neutral spine. Physical Therapy Plan Discharge Physical Therapy Discharge Reasons Goals Met
== END 2023-12-05 08:52 | disposition home or self-care (01) ==
LOC: PHYS 09:45
PROVIDERS: Family Provider Family Medicine; PCP Family Medicine; Referring Provider Family Medicine; Visit Provider Family Medicine
DX: R26.89 Other abnormalities of gait and mobility (principal); R53.1 Weakness; R29.3 Abnormal posture; R26.2 Difficulty in walking, not elsewhere classified; M54.50 Low back pain, unspecified
CPT/HCPCS: 97110; 97112; 97140; 97162; 97530; 97535

== ENCOUNTER → 2024-01-02 08:51 | Outpatient (CLI) | payer OTHER, SELFPAY ==
[2021-08-07 10:42] VITALS: BMI 24.7
[2024-01-02 11:22] LABS: Alanine Aminotransferase 23 IU/L (<50); Albumin 4.2 g/dL (3.5-5.0); Albumin Globulin Ratio 1.8 (1.0-2.8); Alkaline Phosphatase 68 U/L (38-126); Aspartate Aminotransferase 30 IU/L (17-59); BUN Creatinine Ratio 16.5 (6-22); Bilirubin Total 0.7 mg/dL (0.2-1.3); Blood Urea Nitrogen 16 mg/dL (9-20); Calcium 9.6 mg/dL (8.4-10.2); Carbon Dioxide 28 mmol/L (22-32); Chloride 105 mmol/L (98-107); Estimated Glomerular Filt Rate > 60 mL/min (>60); Globulin 2.3 g/dL (1.7-4.1); Glucose 101 mg/dL (80-110); HEMOLYSIS < 15 (0-50); Magnesium 2.1 mg/dL (1.6-2.3); Potassium 5.1 mmol/L (3.4-5.1); Sodium 138 mmol/L (137-145); Total Protein 6.5 g/dL (6.3-8.2)
== END ==
PROVIDERS: Family Provider Family Medicine; PCP Family Medicine; Referring Provider Specialist; Visit Provider Specialist
DX: I48.0 Paroxysmal atrial fibrillation (principal); E78.00 Pure hypercholesterolemia, unspecified
CPT/HCPCS: 36415; 80053; 80299; 83735

== ENCOUNTER → 2024-01-09 09:09 | Outpatient (CLI) | payer OTHER, SELFPAY ==
[2021-08-07 10:42] VITALS: BMI 24.7
--- NOTE | 2024-01-09 09:10 | DI.ECHO.S_ITS ---
[place] [facility]+ [facility] : : [address] : : [place] : : [id number] : : Phone: [phone] Echocardiogram Report + + :Name: GERONIMO SOLO Study Date: 01/09/2024 Height: 70 in : :[facility] ReadingLocation: Weight: 182 lb : : Gender: Male BSA: 2.0 m2 : :: 1950 Age: 73 yrs BP: 121/72 mmHg: :Reason For Study: Aortic, Ascending Aneurysm : :Ordering Physician: LINDA, : :MANFRED Performed By: Vickie Munoz : :Referring: MANFRED MCKEON : + + Interpretation Summary Left ventricular systolic function remains at the lower limits of normal with an estimated ejection fraction of around 55% with a dyssynchronous contraction pattern but no obvious focal wall motion abnormality and appears unchanged from the previous study. Left ventricular volumes remain mildly increased but unchanged. There is a probable diastolic relaxation abnormality but normal filling pressures that are likely unchanged from the previous study. The right ventricle is likely mildly enlarged and mildly hypokinetic and appears slightly less dynamic compared to the previous study. Right ventricular systolic pressure cannot be estimated but CVP is around 3 mmHg. There is mild left atrial enlargement and normal right atrial size but both have mildly increased in size since the previous study. There is mild mitral regurgitation that is less prominent compared to the previous study and trivial tricuspid regurgitation that is unchanged. There is mild to moderate aortic regurgitation that is likely unchanged. The aortic root and aortic arch are mildly enlarged and measure larger compared to the previous study. The ascending aorta is mild to moderately enlarged but unchanged from the previous study. The patient was in sinus rhythm at 50 to 55 bpm throughout the exam, similar to the previous study. Procedure: A two-dimensional transthoracic echocardiogram with color flow and Doppler was performed. The study quality was technically adequate. Comparison is made with the echocardiogram of 12-06-21. The patient was in sinus rhythm with heart rates between 50-55 bpm during the exam. Left Ventricle: The left ventricle is borderline dilated. The estimated left ventricular end diastolic volume is 113 mL compared to the previous 122 ml. There is normal left ventricular wall thickness. There is moderate proximal septal thickening noted. Left ventricular systolic function is low normal. Left ventricular ejection fraction is estimated to be around 55%. There is a mild dyssynchronous contraction pattern, consistent with a conduction abnormality. There are no focal wall motion abnormalities. This is unchanged compared to the previous study. Diastolic parameters suggest a relaxation abnormality of the left ventricle, consistent with probable normal filling pressures. This is unchanged compared to the previous study. Right Ventricle: The right ventricle is mildly dilated. Right ventricular systolic function is mildly reduced. This is slightly less dynamic compared to the previous study. Atria: The left atrium is mildly dilated. Both atria have mildly increased in size since the prior echo exam. Right atrial size is normal. The interatrial septum grossly appears intact with no obvious evidence for an atrial septal defect. Mitral Valve: The mitral valve leaflets appear normal. There is no evidence of stenosis, fluttering, or prolapse. There is mild mitral regurgitation. This is less prominent compared to the previous study. Aortic Valve: The aortic valve is trileaflet. The aortic valve is mildly calcified. The aortic valve opens well. There is mild to moderate aortic regurgitation. This is unchanged compared to the previous study. Tricuspid Valve: The tricuspid valve leaflets are thin and pliable. There is trace tricuspid regurgitation. Pulmonary artery pressures cannot be estimated because of the lack of a measurable TR jet velocity but the IVC suggests a CVP of around 3 mmHg. Pulmonic Valve: The pulmonic valve is not well seen, but is grossly normal. There is a trace or physiologic amount of pulmonic regurgitation. Great Vessels: The aortic root is mildly dilated. This is larger compared to the previous study. The ascending aorta is mild-moderately enlarged. This is unchanged compared to the previous study. The aortic arch is mildly enlarged. This is larger compared to the previous study. The IVC is of normal diameter and collapses greater than 50% with a sniff. This suggests a low right atrial pressure of 3 mm Hg. Pericardium/ Pleura There is no pericardial effusion. There is no pleural effusion. MMode/2D Measurements & Calculations LVIDd: 5.7 cm LVOT diam: 2.4 cm LVIDs: 3.3 cm Ao root diam: 4.2 cm FS: 41.5 % asc Aorta Diam: 4.3 cm EPSS: 0.69 cm Ao Arch Diam (Prox Trans): 3.5 cm IVSd: 0.77 cm LVPWd: 0.77 cm LV verduzco. diameter/BSA (cm/m^2): 2.8 LV sys. diameter/BSA (cm/m^2): 1.7 LA A2 area: 25.3 cm2 RA long axis: 6.4 cm LA A4 area: 22.4 cm2 RA area: 20.0 cm2 LA length (vol): 5.6 cm RA vol: 53.0 ml LA vol: 85.7 ml RA : 26.4 ml/m2 LA vol index: 42.7 ml/m2 IVC diam: 1.6 cm RVD1 (basal): 3.8 cm TAPSE: 2.3 cm Doppler Measurements & Calculations Ao V2 max: 118.6 cm/sec LVOT Max Alvin: 91.7 cm/sec Ao V2 mean: 82.0 cm/sec LV V1 max P.4 mmHg Ao max P.6 mmHg LV V1 VTI: 20.3 cm Ao mean P.1 mmHg AARON(I,D): 3.4 cm2 Ao V2 VTI: 26.7 cm AARON(V,D): 3.5 cm2 sev ratio: 0.76 AARON indexed to BSA (cm^2/m^2): 1.7 AI P1/2t: 706.7 msec AI dec slope: 179.9 cm/sec2 MV E max alvin: 49.2 cm/sec TR max alvin: 239.2 cm/sec MV A max alvin: 52.3 cm/sec TR max P.9 mmHg MV E/A: 0.94 PA V2 max: 84.8 cm/sec Med Peak E' Alvin: 4.3 cm/sec PA V2 mean: 56.4 cm/sec E/E' med: 11.5 PA mean P.5 mmHg Lat Peak E' Alvin: 8.7 cm/sec PA pr(Accel): 31.0 mmHg E/E' lat: 5.6 E/e' average: 8.6 MV dec time: 0.31 sec SV(LVOT): 91.1 ml Reading Physician:12:03 PM
== END ==
LOC: ECHO 09:09
PROVIDERS: Family Provider Family Medicine; PCP Family Medicine; Referring Provider Specialist; Visit Provider Specialist
DX: I08.0 Rheumatic disorders of both mitral and aortic valves (principal); I77.810 Thoracic aortic ectasia; I77.89 Other specified disorders of arteries and arterioles
CPT/HCPCS: 93306

== ENCOUNTER → 2024-02-25 16:14 | Outpatient (CLI) | payer OTHER, SELFPAY ==
[2021-08-07 10:42] VITALS: BMI 24.7
[2024-02-25 18:55] LABS: Prostate Specific Antigen Scrn 4.27 ng/mL (0.1-4.0)
== END ==
LOC: LAB 16:15
PROVIDERS: Family Provider Family Medicine; PCP Family Medicine; Referring Provider Family Medicine; Visit Provider Family Medicine
DX: Z12.5 Encounter for screening for malignant neoplasm of prostate (principal); R97.20 Elevated prostate specific antigen [PSA]; N40.0 Benign prostatic hyperplasia without lower urinary tract symptoms
CPT/HCPCS: 36415; G0103

== ENCOUNTER → 2024-05-23 08:32 | Outpatient (CLI) | payer OTHER, SELFPAY ==
[2021-08-07 10:42] VITALS: BMI 24.7
[2024-05-23 09:43] LABS: Add Manual Diff / Slide Review NO; Basophils Absolute Auto 0 /uL (0-100); Basophils Percent Auto 0.6 % (0-2); Eosinophils Absolute Auto 200 /uL (0-450); Eosinophils Percent Auto 4.8 % (2-4); Hematocrit 43.2 % (41-53); Hemoglobin 14.4 g/dL (13.5-17.5); Lymphocytes Absolute Auto 800 /uL (1100-4500); Lymphocytes Percent Auto 19.3 % (25-40); Mean Corpuscular HGB Conc 33.4 % (30-36); Mean Corpuscular Hemoglobin 31.7 PG (26-34); Mean Corpuscular Volume 94.9 fL (80-100); Monocytes Absolute Auto 600 /uL (0-900); Monocytes Percent Auto 13.2 % (3-14); Neutrophils Absolute Auto 2700 /uL (1500-7000); Neutrophils Percent Auto 62.1 % (50-75); Platelet Count 200 X10^3/uL (150-400); Red Blood Cell Count 4.55 X10^6/uL (4.5-5.9); Red Cell Distribution Width 13.5 % (11.6-14.8); White Blood Cell Count 4.4 X10^3/uL (4.5-11.0)
[2024-05-23 09:55] LABS: Alanine Aminotransferase 27 IU/L (<50); Albumin 4.1 g/dL (3.5-5.0); Albumin Globulin Ratio 2.3 (1.0-2.8); Alkaline Phosphatase 57 U/L (38-126); Aspartate Aminotransferase 31 IU/L (17-59); BUN Creatinine Ratio 16.8 (6-22); Bilirubin Total 0.6 mg/dL (0.2-1.3); Blood Urea Nitrogen 17 mg/dL (9-20); Calcium 9.2 mg/dL (8.4-10.2); Carbon Dioxide 25 mmol/L (22-32); Chloride 108 mmol/L (98-107); Cholesterol 110 mg/dL (140-199); Estimated Glomerular Filt Rate > 60 mL/min (>60); Globulin 1.8 g/dL (1.7-4.1); Glucose 91 mg/dL (80-110); HDL Cholesterol 40 mg/dL (40-60); HEMOLYSIS < 15 (0-50); LDL Cholesterol Calculated 51 mg/dL (<100); Potassium 4.4 mmol/L (3.4-5.1); Sodium 139 mmol/L (137-145); Total Protein 5.9 g/dL (6.3-8.2); Triglycerides 97 mg/dL (35-150)
[2024-05-23 10:26] LABS: Prostate Specific Antigen Scrn 4.81 ng/mL (0.1-4.0)
[2024-05-23 10:27] LABS: TSH w/ Reflex to FT4 4.08 uIU/mL (0.47-4.68)
== END ==
PROVIDERS: Family Provider Family Medicine; PCP Family Medicine; Referring Provider Family Medicine; Visit Provider Family Medicine
DX: I10 Essential (primary) hypertension (principal); Z12.5 Encounter for screening for malignant neoplasm of prostate; E78.5 Hyperlipidemia, unspecified; Z13.9 Encounter for screening, unspecified; R97.20 Elevated prostate specific antigen [PSA]
CPT/HCPCS: 36415; 80053; 80061; 84443; 85025; G0103

== ENCOUNTER → 2024-05-28 07:59 | Outpatient (CLI) | payer OTHER, SELFPAY ==
[2021-08-07 10:42] VITALS: BMI 24.7
--- NOTE | 2024-05-28 08:00 | DI.MRI.S_ITS ---
PROCEDURE: MR PELVIC PROSTATE PROTOCOL INDICATIONS: increasing PSA TECHNIQUE: Coronal HASTE, axial T1 FSE with fat saturation, 3-plane nonbreath-hold T2 FSE. After the administration of contrast, dynamic axial, delayed axial and coronal VIBE or 2-D FLASH with fat saturation through the pelvis. Diffusion weighted imaging and ADC was performed. COMPARISON: None. FINDINGS: Image quality: Diffusion weighted and dynamic contrast enhanced images are diagnostic. Prostate: Gland size is 4.1 x 2.8 x 3.7 cm; ellipsoid gland volume is 22 mL. PSA density of 0.21. Wedge-shaped regions of hypoattenuation in the peripheral zone. Hypertrophy of the transition zone. Lesion 1: Location: Anterior right transition zone of the base, on axial series 4, image 11 and sagittal series 6, image 10. Size: 0.8 x 0.3 cm. T2W signal: Markedly hypointense, ill-defined . Nonencapsulated DWI signal: Markedly hyperintense. ADC signal: Markedly hypointense. Enhancement: Yes. Extracapsular extension: No. No neurovascular involvement. PI-RADS score: 4 Genitourinary system: Bladder wall thickness is normal. Distal ureters are non distended. Bowel and peritoneum: No pathologic free pelvic fluid. Inferior colon and small bowel loops are normal in caliber. Colonic diverticulosis without evidence of diverticulitis. Nodes and vessels: No pelvic or inguinal adenopathy by size criteria. Iliac vessels are normal in caliber. Soft tissues: No inguinal hernias. Bones: Marrow demonstrates normal overall signal, without lesions to suggest metastases. IMPRESSION: PI-RADS 4 lesion in the anterior transition zone of the base. Superimposed wedge-shaped T2 hypointense signal within the peripheral zone, likely indicating prostatitis. No pelvic lymphadenopathy by size criteria. No aggressive osseous abnormality. Dictated by: Gerardo Ortega M.D. on 05/28/2024 at 10:01 Approved by: Gerardo Ortega M.D. on 05/28/2024 at 10:08
== END ==
LOC: MRI 08:00
PROVIDERS: Family Provider Family Medicine; PCP Family Medicine; Referring Provider Family Medicine; Visit Provider Family Medicine
DX: N40.0 Benign prostatic hyperplasia without lower urinary tract symptoms (principal); R97.20 Elevated prostate specific antigen [PSA]; E78.5 Hyperlipidemia, unspecified; N42.9 Disorder of prostate, unspecified; K57.90 Diverticulosis of intestine, part unspecified, without perforation or abscess without bleeding
CPT/HCPCS: 72197; A9579

== ENCOUNTER → 2024-07-11 15:52 | Outpatient (CLI) | payer OTHER, SELFPAY ==
[2021-08-07 10:42] VITALS: BMI 24.7
== END ==
LOC: LAB 15:53
PROVIDERS: Family Provider Family Medicine; PCP Family Medicine; Visit Provider Physician Assistant Surgical
DX: R30.0 Dysuria (principal)
CPT/HCPCS: 87077; 87086; 87186

== ENCOUNTER → 2025-01-14 10:35 | Outpatient (CLI) | payer OTHER, SELFPAY ==
[2021-08-07 10:42] VITALS: BMI 24.7
[2025-01-14 12:47] LABS: Prostate Specific Antigen 5.41 ng/mL (0.10-4.00)
== END ==
PROVIDERS: Family Provider Family Medicine; PCP Family Medicine; Referring Provider Urology; Visit Provider Urology
DX: C61 Malignant neoplasm of prostate (principal)
CPT/HCPCS: 36415; 84153

== ENCOUNTER → 2025-02-09 08:08 | Outpatient (CLI) | payer OTHER, SELFPAY ==
[2021-08-07 10:42] VITALS: BMI 24.7
[2025-02-09 09:33] LABS: Alanine Aminotransferase 29 IU/L (<50); Albumin 4.3 g/dL (3.5-5.0); Albumin Globulin Ratio 2.0 (1.0-2.8); Alkaline Phosphatase 67 U/L (38-126); Blood Urea Nitrogen 19 mg/dL (9-20); Calcium 9.4 mg/dL (8.4-10.2); Carbon Dioxide 26 mmol/L (22-32); Chloride 105 mmol/L (98-107); Estimated Glomerular Filt Rate > 60 mL/min (>60); Globulin 2.1 g/dL (1.7-4.1); Glucose 93 mg/dL (70-99); HEMOLYSIS 21 (0-50); Magnesium 1.9 mg/dL (1.6-2.3); Potassium 4.4 mmol/L (3.4-5.1); Sodium 138 mmol/L (137-145); Total Protein 6.4 g/dL (6.3-8.2)
== END ==
PROVIDERS: Family Provider Family Medicine; PCP Family Medicine; Referring Provider Specialist; Visit Provider Specialist
DX: I48.0 Paroxysmal atrial fibrillation (principal); E78.00 Pure hypercholesterolemia, unspecified
CPT/HCPCS: 36415; 80053; 80061; 83704; 83735